=== PATIENT | female | born 1975 | race Caucasian/White ===

== ENCOUNTER 2017-08-02 10:15 | Emergency (ER) | payer OTHER ==
[~2017-08-02] VITALS: Ht 160 cm; Wt 57.0 kg
[2017-08-02 10:20] VITALS: TEMP 36.9; Ht 160 cm; Wt 57.0 kg
[2017-08-02] MEDS ORDERED: SODIUM CHLORIDE 0.9% 1000ML 1,000 ML IV STA (10:36)
[2017-08-02] MEDS ORDERED: MoRPHine SULFATE 4 MG/ML 1 ML CARP\\VIAL IV STA (10:36)
[2017-08-02] MEDS ORDERED: ACETAMINOPHEN 500 MG TAB PO STA (10:36)
[2017-08-02] MEDS ORDERED: IBUPROFEN 200 MG TAB PO STA (10:36)
[2017-08-02 11:14] LABS: BUN/CREATININE RATIO 11.4 (10-20); CALCIUM 8.6 mg/dl (8.5-10.1); CREATININE 0.82 mg/dl (0.60-1.20); POTASSIUM 3.6 mmol/L (3.5-5.1)
[2017-08-02 11:20] LABS: HEMATOCRIT 27.4 % (37-47); MEAN CELL VOLUME 72.5 fL (80-100); MEAN CORPUSCULAR HEMOGLOBIN 20.6 pg (25-34); MEAN CORPUSCULAR HGB CONC 28.5 g/dl (32-36); MEAN PLATELET VOLUME 8.8 fL (7.4-10.4); PLATELET COUNT 231 K/uL (130-400); RED BLOOD COUNT 3.78 M/uL (4.2-5.4); WHITE BLOOD COUNT 2.82 K/uL (4.8-10.8)
--- NOTE | 2017-08-02 11:28 | EMERGENCY ROOM VISIT NOTE ---
History Report prepared by Tamy: She Laird Under the Supervision of: Dr. Robby Rhodes M.D. First contact with patient: 10:23 Chief Complaint: SWELLING TO EXTREMITY Stated Complaint: SWELLING TO HANDS History of Present Illness The patient is a 42 year old female with a past history of C- section who presents to the ED with a cc of worsening swelling to extremities beginning a couple months ago. Positive: nausea, pain in extremities, swelling, and back pain. Negative: fever, chills, and cough. The pt denies ETOH, tobacco, and drug use. The pt's LNMP was July 30. Source of History: patient Onset: a couple months ago Quality: other (swelling) Timing: worsening Associated Symptoms: + nausea, + back pain, No fevers, No chills, No cough Note: Pt notes pain in extremities and swelling, Review of Systems See HPI for pertinent positives and negatives. A total of ten systems were reviewed and were otherwise negative. Past Medical & Surgical Surgical Problems: (1) Hx of section Family History No pertinent family history stated. Social History Smoking Status: Never Smoker Smokeless Tobacco Use: No Alcohol Use: none Drug Use: none Current/Historical Medications Scheduled Ferrous Sulfate (Kp Ferrous Sulfate), 1 TAB PO DAILY Scheduled PRN Docusate Sodium (Docusate Sodium), 1 CAP PO DAILY PRN for Constipation Senna (Senokot), 1 TAB PO QD PRN for Constipation Allergies Coded Allergies: No Known Allergies (Unverified , 08/02/17) Physical Exam Vital Signs Date Time Temp Pulse Resp B/P (MAP) Pulse Ox O2 Delivery O2 Flow Rate FiO2 08/02/17 13:14 82 15 105/64 100 08/02/17 11:49 88 15 116/76 100 Room Air 08/02/17 10:20 36.9 115 20 123/78 100 Room Air Physical Exam GENERAL: Awake, alert, well-appearing, NAD HENT: Normocephalic, atraumatic. EYES: Normal conjunctiva. Sclera non-icteric. NECK: Supple. No nuchal rigidity. FROM. RESPIRATORY: CTAB, no rhonchi, wheezing, crackles CARDIAC: RRR, no MRG ABDOMEN: Soft, NTND, BS+ MSK: No chest wall TTP, B/L mild tenderness to palpation to hands and wrist, no swelling present, mild pain to left ankle, no obvious fracture or deformity. Trace swelling present EXTREMITIES: NEURO: GCS 15, CN 2-12 intact, moves all 4s on command. MUR nerves intact to sensorimotor B/L UES. SP/DP/TIB nerves intact to sensorimotor B/L LORAINE. Hands and feet have no petechiae or purpura. SKIN: No rash or jaundice noted. Ink over ever DP of the hands and plantar surface of foot. No warmness or redness over any joint. Medical Decision & Procedures ER Provider Diagnostic Interpretation: Radiology results as stated below per my review and radiologist interpretation: CHEST ONE VIEW PORTABLE FINDINGS: Cardiac silhouette is upper limits of normal. No pneumothorax, pleural effusion or focal airspace consolidation. No overt pulmonary edema. Bones are grossly intact. IMPRESSION: No acute cardiopulmonary process. The above report was generated using voice recognition software. It may contain grammatical, syntax or spelling errors. Electronically signed by: Julio Esparza M.D. Laboratory Results 08/02/17 10:46 Red Blood Count 3.78, Mean Corpuscular Volume 72.5, Mean Corpuscular Hemoglobin 20.6, Mean Corpuscular Hemoglobin Concent 28.5, Mean Platelet Volume 8.8, Neutrophils (%) (Auto) 61.0, Lymphocytes (%) (Auto) 26.2, Monocytes (%) (Auto) 9.6, Eosinophils (%) (Auto) 2.8, Basophils (%) (Auto) 0.4, Neutrophils # (Auto) 1.72, Lymphocytes # (Auto) 0.74, Monocytes # (Auto) 0.27, Eosinophils # (Auto) 0.08, Basophils # (Auto) 0.01 08/02/17 10:46 Test 08/02/17 10:46 08/02/17 11:35 White Blood Count 2.82 K/uL (4.8-10.8) Red Blood Count 3.78 M/uL (4.2-5.4) Hemoglobin 7.8 g/dL (12.0-16.0) Hematocrit 27.4 % (37-47) Mean Corpuscular Volume 72.5 fL (80-100) Mean Corpuscular Hemoglobin 20.6 pg (25-34) Mean Corpuscular Hemoglobin Concent 28.5 g/dl (32-36) Platelet Count 231 K/uL (130-400) Mean Platelet Volume 8.8 fL (7.4-10.4) Neutrophils (%) (Auto) 61.0 % Lymphocytes (%) (Auto) 26.2 % Monocytes (%) (Auto) 9.6 % Eosinophils (%) (Auto) 2.8 % Basophils (%) (Auto) 0.4 % Neutrophils # (Auto) 1.72 K/uL (1.4-6.5) Lymphocytes # (Auto) 0.74 K/uL (1.2-3.4) Monocytes # (Auto) 0.27 K/uL (0.11-0.59) Eosinophils # (Auto) 0.08 K/uL (0-0.5) Basophils # (Auto) 0.01 K/uL (0-0.2) RDW Standard Deviation 48.2 fL (36.4-46.3) RDW Coefficient of Variation 18.2 % (11.5-14.5) Immature Granulocyte % (Auto) 0.0 % Immature Granulocyte # (Auto) 0.00 K/uL (0.00-0.02) Hypochromasia PRESENT Spherocytes 1+ Tear Drop Cells 1+ Ovalocytes 1+ Anion Gap 4.0 mmol/L (3-11) Est Creatinine Clear Calc Drug Dose 73.9 ml/min Estimated GFR () 102.3 Estimated GFR (Non- 88.3 BUN/Creatinine Ratio 11.4 (10-20) Calcium Level 8.6 mg/dl (8.5-10.1) Magnesium Level 2.0 mg/dl (1.8-2.4) Total Bilirubin 0.8 mg/dl (0.2-1) Direct Bilirubin 0.2 mg/dl (0-0.2) Aspartate Amino Transf (AST/SGOT) 20 U/L (15-37) Alanine Aminotransferase (ALT/SGPT) 17 U/L (12-78) Alkaline Phosphatase 88 U/L (45-117) Total Protein 8.6 gm/dl (6.4-8.2) Albumin 3.7 gm/dl (3.4-5.0) Urine Color YELLOW Urine Appearance CLEAR (CLEAR) Urine pH 5.5 (4.5-7.5) Urine Specific [place] 1.010 (1.000-1.030) Urine Protein NEG (NEG) Urine Glucose (UA) NEG (NEG) Urine Ketones TRACE (NEG) Urine Occult Blood NEG (NEG) Urine Nitrite NEG (NEG) Urine Bilirubin NEG (NEG) Urine Urobilinogen NEG (NEG) Urine Leukocyte Esterase NEG (NEG) Urine WBC (Auto) 1-5 /hpf (0-5) Urine RBC (Auto) 0-4 /hpf (0-4) Urine Hyaline Casts (Auto) 1-5 /lpf (0-5) Urine Epithelial Cells (Auto) >30 /lpf (0-5) Urine Bacteria (Auto) NEG (NEG) Urine Test NEG (NEG) Laboratory results reviewed by me Medications Administered Medications (Trade) Dose Ordered Sig/Joby Route Start Time Stop Time Status Last Admin Dose Admin Sodium Chloride 1,000 ml @ 999 mls/hr Q1H1M STAT IV 08/02/17 10:36 08/02/17 11:36 DC 08/02/17 11:15 999 MLS/HR Morphine Sulfate (MoRPHine SULFATE INJ) 4 mg NOW STAT IV 08/02/17 10:36 08/02/17 10:38 DC 08/02/17 11:12 4 MG Ibuprofen (Advil Tab) 400 mg NOW STAT PO 08/02/17 10:36 08/02/17 10:38 DC 08/02/17 11:12 400 MG Acetaminophen (Tylenol Tab) 1,000 mg NOW STAT PO 08/02/17 10:36 08/02/17 10:38 DC 08/02/17 11:12 1,000 MG ECG Indication: other (swelling to extremities) Rate (beats per minute): 103 Rhythm: sinus tachycardia Findings: other (normal interval, normal axis, no STS changes or T-wave inversion) ED Course 1026: The patient was evaluated in room C10. A complete history and physical exam was performed. 1210: I rechecked on the pt, she is resting comfortably. The pt has no vaginal or rectal bleeding. She also has a hx of anemia and low blood count and has had iron transfusions. 1252: I reevaluated the patient. Discussed results and discharge instructions: She verbalized understanding and agreement. The patient is ready for discharge. Medical Decision The patient is a 42 year old female with a past history of C- section who presents to the ED with a cc of worsening swelling to extremities beginning a couple months ago. Positive: nausea, pain in extremities, swelling, and back pain. Negative: fever, chills, and cough. Differential diagnosis includes but is not limited to: DJD, rheumatoid arthritis, gout, proteinuria, nephrotic syndrome, gynecol infection. Patient was seen and evaluated at the bedside. Patient swelling present was trace heme unremarkable. Patient had no warmth or erythema to any of the joints. Patient did have blood work COMPLETED and patient was noted to have mild leukopenia as well as microcytic anemia. I spoke with the patient and family denied any vaginal or rectal bleeding. Upon further questioning patient has had a chronic history of what sounds like iron deficiency anemia as she is taking oral iron supplements in addition to having iron IV infusions in the past when they previously lived in [place]. Patient's pain and tachycardia resolved with fluids and pain control. I told the patient that they can continue symptomatic control for the time being and if anything worsens they can return. 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 Patient's tachycardia did resolve and patient does not complain of any shortness of breath or chest pain. Patient was afebrile had no other concerning signs or symptoms concerning for an infectious etiology although she may have symptoms of viral illness. We'll not treat with antibiotics at this time given afebrile and no obvious source of infection. U urinalysis was negative. No protein in the urine. Patient feeling much improved patient was given RICE instructions as well as strict follow-up, discharge, and return precautions. Patient and family agreed with plan of care and patient was safely discharged home. Medication Reconcilliation Current Medication List: was personally reviewed by me Blood Pressure Screening Patient's blood pressure: Normal blood pressure Impression Primary Impression: Microcytic anemia Additional Impression: Leukopenia Scribe Attestation The scribe's documentation has been prepared under my direction and personally reviewed by me in its entirety. I confirm that the note above accurately reflects all work, treatment, procedures, and medical decision making performed by me. Departure Information Dispostion Home / Self-Care Prescriptions Senna (Senokot) 8.6 Mg Tab 1 TAB PO QD Y for Constipation, #30 TAB Prov: Robby Rhodes M.D. 08/02/17 Docusate Sodium (DOCUSATE SODIUM) 100 Mg Cap 1 CAP PO DAILY Y for Constipation for 30 Days, #30 CAP Prov: Robby Rhodes M.D. 08/02/17 Ferrous Sulfate (KP FERROUS SULFATE) 325 Mg Tab 1 TAB PO DAILY for 30 Days, #30 TAB 3 Refills Prov: Robby Rhodes M.D. 08/02/17 Referrals No Doctor, Assigned (PCP) Forms HOME CARE DOCUMENTATION FORM, IMPORTANT VISIT INFORMATION, WORK / SCHOOL INSTRUCTIONS Patient Instructions Anemia, ED Anemia Iron Deficiency, Iron Blood, [facility] Additional Instructions Please return to the emergency department if you have worsening or recurrent symptoms not amenable to at-home treatment. Please call for a follow-up appointment with her primary care physician. Please take your medications as prescribed. If you have other concerns and/or complaints please feel free to also call your primary care physician's office or return the ED for further evaluation, management, and treatment. [address] sa[address] salcido altaeam lil'alam yrja 'akhadh mukamilat alhadid alpesh hu muhadidun. yrja aitikhadh almurtabat albiraz walhadid ymkn 'an yusabib al'iimsak. [place] ziadat alhadid alyawmii alex rene aistihlak allihum alhamra' walkhudr alwarqiat. kunt qad roberts fahsuha wamuealajatuha alyawm ealaa 'asas krystle faqta. wahadha lays badilapatrice alex tawfir alrieayat altibiyat alshaamilat, 'aw badhl juhd litawfiriha. min almustahil altaearuf ealaa jmye al'iisabat 'aw al'amrad wamuealajatiha fi ziarat qism altawari. walidhalik faman almuhimi 'an tutabie alex kathab salcido alkhadamat alsihiyat aljamieiati. 'atasil fi 'aqrab waqt mumkin lilhusul ealaa maweid. Work Instructions Return To Work: 1 day Problem Qualifiers Additional Impression: Leukopenia Leukopenia type: unspecified Qualified Codes: D72.819 - Decreased white blood cell count, unspecified
[2017-08-02 11:33] LABS: BASO % 0.4 %; BASO ABS # 0.01 K/uL (0-0.2); COMPLETE YES; EOS % 2.8 %; HYPOCHROMIA PRESENT; LYMPH % 26.2 %; LYMPH ABS # 0.74 K/uL (1.2-3.4); MONO % 9.6 %; OVALOCYTES 1+; SPHEROCYTE 1+; TEAR DROP CELLS 1+
[2017-08-02 12:00] LABS: URINE APPEARANCE CLEAR (CLEAR); URINE BILIRUBIN NEG (NEG); URINE COLOR YELLOW; URINE EPITHELIAL CELL AUTO >30 /lpf (0-5); URINE NITRITE NEG (NEG); URINE PH 5.5 (4.5-7.5); UROBILINOGEN NEG (NEG); ZZUR CULT IF INDIC CLEAN CATCH NO
[2017-08-02 12:01] LABS: MANUAL MICROSCOPIC REQUIRED? NO; REVIEW REQ? NO
--- NOTE | 2017-08-02 12:23 | DIAGNOSTIC IMAGING REPORT ---
CHEST ONE VIEW PORTABLE HISTORY: 42 years-old Female tachy acute tachycardia. Initial exam. COMPARISON: None available TECHNIQUE: Portable upright AP view of the chest FINDINGS: Cardiac silhouette is upper limits of normal. No pneumothorax, pleural effusion or focal airspace consolidation. No overt pulmonary edema. Bones are grossly intact. IMPRESSION: No acute cardiopulmonary process. The above report was generated using voice recognition software. It may contain grammatical, syntax or spelling errors. Electronically signed by: Julio Esparza M.D. 08/02/2017 12:22 PM Dictated Date/Time: 08/02/2017 12:21 PM
[2017-08-02] MEDS ORDERED: SENN-61 PO (12:49)
[2017-08-02] MEDS ORDERED: FERR1TAB13 PO (12:49)
[2017-08-02] MEDS ORDERED: DOCU100C31 PO (12:49)
[2017-08-02 13:14] VITALS: BP 105/64; PULSE 82; O2SAT 100
== END 2017-08-02 13:13 | disposition home or self-care (01) ==
LOC: C.EDB 10:16 → C.EDC 13:13
DX: D50.9 Iron deficiency anemia, unspecified (principal); D72.819 Decreased white blood cell count, unspecified

== ENCOUNTER 2017-09-07 20:51 | Emergency (ER) | payer SELFPAY ==
[~2017-09-07] VITALS: Ht 157.5 cm; Wt 55.1 kg
[~2017-09-07 20:51] MED LIST: FERR1TAB13 PO; SENN-61 PO
[2017-09-07 21:02] VITALS: Ht 157.5 cm; Wt 55.1 kg
[2017-09-07] MEDS ORDERED: DiphenhydrAMINE HCL 50 MG/ML VIAL IV STA (21:59)
[2017-09-07] MEDS ORDERED: METHYLPREDNISOLONE 125 MG VIAL IV STA (21:59)
[2017-09-07] MEDS ORDERED: KETOROLAC TROMETHAMINE 30 MG/ML VIAL IV STA (21:59)
[2017-09-07] MEDS ORDERED: SODIUM CHLORIDE 0.9% 1000ML 1,000 ML IV ONE (22:00)
[2017-09-07 22:52] LABS: URINE APPEARANCE CLOUDY (CLEAR); URINE BILIRUBIN NEG (NEG); URINE COLOR YELLOW; URINE EPITHELIAL CELL AUTO >30 /lpf (0-5); URINE NITRITE NEG (NEG); URINE PH 8.5 (4.5-7.5); URINE SPECIFIC GRAVITY 1.018 (1.000-1.030); UROBILINOGEN NEG (NEG); ZZUR CULT IF INDIC CLEAN CATCH YES
[2017-09-07 22:55] LABS: MANUAL MICROSCOPIC REQUIRED? NO; REVIEW REQ? NO
[2017-09-07 22:56] LABS: SULFASALICYLIC ACID POS (NEG)
[2017-09-07 23:23] LABS: HEMATOCRIT 26.5 % (37-47); MEAN CELL VOLUME 73.2 fL (80-100); MEAN CORPUSCULAR HGB CONC 28.7 g/dl (32-36); MEAN PLATELET VOLUME 8.9 fL (7.4-10.4); PLATELET COUNT 209 K/uL (130-400); RED BLOOD COUNT 3.62 M/uL (4.2-5.4); WHITE BLOOD COUNT 2.43 K/uL (4.8-10.8)
[2017-09-07 23:25] VITALS: TEMP 37
[2017-09-07] MEDS ORDERED: FERR1TAB13 PO (23:27)
[2017-09-07] MEDS ORDERED: SENN-61 PO (23:27)
[2017-09-07 23:28] LABS: ALB/GLOB RATIO 0.8 (0.9-2); BUN/CREATININE RATIO 10.5 (10-20); CALCIUM 8.3 mg/dl (8.5-10.1); CREATININE 0.73 mg/dl (0.60-1.20); POTASSIUM 4.2 mmol/L (3.5-5.1)
[2017-09-07] MEDS ORDERED: CEFTRIAXONE SOD INJ 1 GM ADDVIAL IV STA (23:34)
[2017-09-07 23:49] VITALS: BP 103/66; PULSE 103; O2SAT 95
[2017-09-07 23:53] LABS: BASO % 0.8 %; BASO ABS # 0.02 K/uL (0-0.2); COMPLETE YES; EOS % 3.7 %; HYPOCHROMIA PRESENT; LARGE PLATELETS 1+; LYMPH % 19.3 %; LYMPH ABS # 0.47 K/uL (1.2-3.4); MONO % 5.8 %; NEUT % 70.4 %; OVALOCYTES 1+; SCHISTOCYTES OCCASIONAL; TEAR DROP CELLS 1+
[2017-09-07] MEDS ORDERED: CEFD300C2 PO (23:53)
--- NOTE | 2017-09-08 04:30 | EMERGENCY ROOM VISIT NOTE ---
History First contact with patient: 21:53 Chief Complaint: FEVER Stated Complaint: FEVER History of Present Illness The patient is a 42 year old female who presents to the Emergency Room with complaints of fever and chills over the past one day. The patient has not had obvious flulike symptoms. No chest pain, chest tightness, or shortness of breath. She has had some burning with urination but no significant abdominal pain or back pain. The patient has a history of chronic anemia. She has not been taking anything [id number] for her symptoms. She rates her discomfort a 5/10. Review of Systems More than 10 systems were reviewed and otherwise negative with the exception of history of present illness. Past Medical/Surgical History Surgical Problems: (1) Hx of section Family History No pertinent family history Social History Smoking Status: Never Smoker Alcohol Use: none Drug Use: none Current/Historical Medications Scheduled Cefdinir (Omnicef), 300 MG PO Q12H Ferrous Sulfate (Kp Ferrous Sulfate), 1 TAB PO DAILY Scheduled PRN Senna (Senokot), 1 TAB PO DAILY PRN for Constipation Physical Exam Vital Signs Date Time Temp Pulse Resp B/P (MAP) Pulse Ox O2 Delivery O2 Flow Rate FiO2 09/07/17 23:49 103 18 103/66 95 Room Air 09/07/17 23:25 37.0 09/07/17 22:29 101 18 118/79 95 Room Air 09/07/17 21:02 37.7 131 20 116/65 98 Room Air Physical Exam VITALS: Vitals are noted on the nurse's note and reviewed by myself. Vital signs stable. GENERAL: Well-developed, well-nourished, female, who is in no acute distress and resting comfortably. Patient is cooperative with the examination. HEAD: Normocephalic atraumatic. EARS: External ear normal. External auditory canals clear, tympanic membranes pearly lester without erythema or effusion bilaterally. EYES: Pupils equal round and reactive to light and accommodation. Conjunctivae without injection, sclerae without icterus. Extraocular movements intact. NOSE: Patent, turbinates without inflammation or discharge. MOUTH: Mucous membranes moist. Tonsils are not enlarged. Pharynx without erythema, blood, or exudate. Uvula midline. Airway patent. NECK: Supple without nuchal rigidity. No lymphadenopathy. No thyromegaly. Cervical spine is nontender. HEART: Regular rate and rhythm without murmurs gallops or rubs. LUNGS: Clear to auscultation bilaterally without wheezes, rales or rhonchi. No retractions or accessory muscle use. ABDOMEN: Positive normal bowel sounds x 4. Soft, nontender, without masses or organomegaly. No guarding or rebound tenderness. No CVA tenderness. MUSCULOSKELETAL: No muscle atrophy, erythema, or edema noted. Full range of motion without joint tenderness in all extremities. There are several areas of excoriation on the bilateral dorsum of the hands and feet. There is a small rash, possibly of viral etiology, without obvious abscess appreciated. Medical Decision & Procedures Laboratory Results 09/07/17 22:10 Red Blood Count 3.62, Mean Corpuscular Volume 73.2, Mean Corpuscular Hemoglobin 21.0, Mean Corpuscular Hemoglobin Concent 28.7, Mean Platelet Volume 8.9, Neutrophils (%) (Auto) 70.4, Lymphocytes (%) (Auto) 19.3, Monocytes (%) (Auto) 5.8, Eosinophils (%) (Auto) 3.7, Basophils (%) (Auto) 0.8, Neutrophils # (Auto) 1.71, Lymphocytes # (Auto) 0.47, Monocytes # (Auto) 0.14, Eosinophils # (Auto) 0.09, Basophils # (Auto) 0.02 09/07/17 22:10 Test 09/07/17 21:50 09/07/17 22:10 09/07/17 22:20 09/07/17 22:30 Urine Color YELLOW Urine Appearance CLOUDY (CLEAR) Urine pH 8.5 (4.5-7.5) Urine Specific [place] 1.018 (1.000-1.030) Urine Protein TRACE (NEG) Urine Glucose (UA) NEG (NEG) Urine Ketones NEG (NEG) Urine Occult Blood TRACE (NEG) Urine Nitrite NEG (NEG) Urine Bilirubin NEG (NEG) Urine Urobilinogen NEG (NEG) Urine Leukocyte Esterase MODERATE (NEG) Urine WBC (Auto) 10-30 /hpf (0-5) Urine RBC (Auto) 5-10 /hpf (0-4) Urine Hyaline Casts (Auto) 1-5 /lpf (0-5) Urine Epithelial Cells (Auto) >30 /lpf (0-5) Urine Bacteria (Auto) 1+ (NEG) Urine Test NEG (NEG) White Blood Count 2.43 K/uL (4.8-10.8) Red Blood Count 3.62 M/uL (4.2-5.4) Hemoglobin 7.6 g/dL (12.0-16.0) Hematocrit 26.5 % (37-47) Mean Corpuscular Volume 73.2 fL (80-100) Mean Corpuscular Hemoglobin 21.0 pg (25-34) Mean Corpuscular Hemoglobin Concent 28.7 g/dl (32-36) Platelet Count 209 K/uL (130-400) Mean Platelet Volume 8.9 fL (7.4-10.4) Neutrophils (%) (Auto) 70.4 % Lymphocytes (%) (Auto) 19.3 % Monocytes (%) (Auto) 5.8 % Eosinophils (%) (Auto) 3.7 % Basophils (%) (Auto) 0.8 % Neutrophils # (Auto) 1.71 K/uL (1.4-6.5) Lymphocytes # (Auto) 0.47 K/uL (1.2-3.4) Monocytes # (Auto) 0.14 K/uL (0.11-0.59) Eosinophils # (Auto) 0.09 K/uL (0-0.5) Basophils # (Auto) 0.02 K/uL (0-0.2) RDW Standard Deviation 50.5 fL (36.4-46.3) RDW Coefficient of Variation 18.9 % (11.5-14.5) Immature Granulocyte % (Auto) 0.0 % Immature Granulocyte # (Auto) 0.00 K/uL (0.00-0.02) Large Platelets 1+ Hypochromasia PRESENT Tear Drop Cells 1+ Ovalocytes 1+ Schistocytes OCCASIONAL Anion Gap 6.0 mmol/L (3-11) Est Creatinine Clear Calc Drug Dose 79.4 ml/min Estimated GFR () 117.7 Estimated GFR (Non- 101.6 BUN/Creatinine Ratio 10.5 (10-20) Calcium Level 8.3 mg/dl (8.5-10.1) Total Bilirubin 0.6 mg/dl (0.2-1) Aspartate Amino Transf (AST/SGOT) 44 U/L (15-37) Alanine Aminotransferase (ALT/SGPT) 25 U/L (12-78) Alkaline Phosphatase 86 U/L (45-117) Total Protein 8.5 gm/dl (6.4-8.2) Albumin 3.8 gm/dl (3.4-5.0) Globulin 4.7 gm/dl (2.5-4.0) Albumin/Globulin Ratio 0.8 (0.9-2) Bedside Lactic Acid Venous 1.19 mmol/L (0.90-1.70) Influenza Type A Antigen Neg for Influ A (NEG) Influenza Type B Antigen Neg for Influ B (NEG) Medications Administered Medications (Trade) Dose Ordered Sig/Joby Route Start Time Stop Time Status Last Admin Dose Admin Sodium Chloride 1,000 ml @ 999 mls/hr Q1H1M ONCE IV 09/07/17 22:00 09/07/17 23:00 DC 09/07/17 22:23 999 MLS/HR Ketorolac Tromethamine (Toradol Inj) 30 mg NOW STAT IV 09/07/17 21:59 09/07/17 22:01 DC 09/07/17 22:24 30 MG Methylprednisolone Sodium Succinate (Solu-Medrol IV) 125 mg NOW STAT IV 09/07/17 21:59 09/07/17 22:01 DC 09/07/17 22:24 125 MG Diphenhydramine HCl (Benadryl Inj) 25 mg NOW STAT IV 09/07/17 21:59 09/07/17 22:01 DC 09/07/17 22:24 25 MG Ceftriaxone Sodium (Rocephin Inj) 1 gm NOW STAT IV 09/07/17 23:34 09/07/17 23:35 DC 09/07/17 23:46 1 GM ED Course Physical exam and history were performed. Nursing notes, EMR, and Medication List were personally reviewed. Patient appears to have vague fever symptoms for the past one day. She does not appear toxic on examination. IV access was established and labs were obtained. Urine was collected chest x-ray was performed. The patient was hydrated with normal saline. She was medicated as above for fever and her rash. The patient's blood work is as above was reviewed. She does not have a significantly elevated white blood cell count or bandemia. The patient does have a noted anemia, however this appears chronic to blood work that was drawn about 6 weeks ago here at this facility. The patient's urine is highly concerning for infection. Chest x-ray is without obvious findings. She was medicated with Rocephin IV in the department. Overall the patient appears well for discharge home. I suspect that her rash may be viral in nature. She will be given a continuation course of Omnicef as her states she recently completed a dose of an unknown penicillin. The patient is to follow with her primary care physician not only for this but also the chronic anemia. The family was pleased with this and voiced understanding. She rated her discomfort a 0/10 at this time departure. The chart was completed utilizing [employer] Speech Voice Recognition Software. Grammatical errors, random word insertions, pronoun errors, and incomplete sentences are an occasional consequence of this system due to software limitations, ambient noise, and hardware issues. Any formal questions or concerns about the content, text, or information contained within the body of this dictation should be directly addressed to the provider for clarification. . Medical Decision Differential diagnosis: Etiologies such as viral syndrome, otitis, pharyngitis, pneumonia, influenza, meningitis, urinary tract infection, sepsis, bacteremia, as well as others were entertained. Impression Primary Impression: Urinary tract infection Additional Impression: Chronic anemia Departure Information Dispostion Home / Self-Care Condition GOOD Prescriptions Cefdinir (OMNICEF) 300 Mg Cap 300 MG PO Q12H for 10 Days, #20 CAP Prov: Deni Tirado PA-C 09/07/17 Forms HOME CARE DOCUMENTATION FORM, IMPORTANT VISIT INFORMATION Patient Instructions My [facility] Additional Instructions You were seen and evaluated today on an emergency basis only. This is not a substitute for, or an effort to provide, complete comprehensive medical care. It is not possible to recognize and treat all injuries or illnesses in a single emergency department visit. For this reason it is recommended that you followup with your primary care physician this week for ongoing care and evaluation. Take Omnicef 300 mg twice daily for the next 10 days. You are welcome to return to the emergency department anytime with new, worsening, or concerning symptoms. Problem Qualifiers
--- NOTE | 2017-09-08 07:04 | DIAGNOSTIC IMAGING REPORT ---
CHEST 2 VIEWS ROUTINE CLINICAL HISTORY: Fever, flulike symptoms. COMPARISON STUDY: August 02, 2017 FINDINGS: The heart is mildly enlarged. There is slight tracheal deviation to the right at the thoracic inlet. A thoracic inlet mass such as a thyroid goiter cannot be excluded. There is no lobar consolidation. There are diffusely increased interstitial markings. This could be secondary to technical factors, or could represent interstitial inflammatory process. There is slight blunting of the left lateral costophrenic angle.[ IMPRESSION: 1. Diffusely increased interstitial markings. It is unclear whether this is secondary to technical factors, or a bilateral interstitial inflammatory process. If symptoms persist, follow-up radiography is recommended. Electronically signed by: Claude Arias M.D. 09/08/2017 7:03 AM Dictated Date/Time: 09/08/2017 7:01 AM
== END 2017-09-08 00:16 | disposition home or self-care (01) ==
LOC: C.EDB 20:53
DX: N39.0 Urinary tract infection, site not specified (principal); D64.9 Anemia, unspecified; R21 Rash and other nonspecific skin eruption; Z79.899 Other long term (current) drug therapy

== ENCOUNTER 2017-10-11 18:52 | Emergency (ER) | payer OTHER ==
[~2017-10-11] VITALS: Ht 160 cm; Wt 52.6 kg
[2017-10-11 18:56] VITALS: TEMP 37.3; Ht 160 cm; Wt 52.6 kg
[2017-10-11] MEDS ORDERED: ONDANSETRON 4MG OD TAB PO ONE (19:15)
--- NOTE | 2017-10-11 19:16 | EMERGENCY ROOM VISIT NOTE ---
History Report prepared by Tamy: Harvinder Johnson Under the Supervision of: Dr. Mark Lemus M.D. First contact with patient: 19:02 Chief Complaint: VOMITING Stated Complaint: VOMITING,FEVER History of Present Illness The patient is a 42 year old female who presents to the Emergency Room with complaints of intermittent vomiting that started a week ago. She rates her discomfort as an 8/10 in severity. The patient reports that she has been experiencing an intermittent fever and nausea. She states that she has also been experiencing a rash on her fingers, face, and feet, which is the third time she has been experiencing this. The patient states that the rashes are painful, which makes it difficult to walk. She also reports that the rash on her fingers intermittently bleed. Her states that the patient has come to the ED twice for her rash, but admits that the rash goes away on its own and randomly comes back. She reports that she has also been experiencing irregular and frequent menses. The patient states that she took a test, which she reports was negative. The patient admits to a history of anemia and tubal ligation. She reports that she is from [place] and her last visit was 2 years ago. The patient denies diarrhea, constipation, abdominal pain, and urinary symptoms. Source of History: patient, spouse/significant other Onset: a week ago Position: other (global) Symptom Intensity: 8/10 Quality: other (global) Timing: intermittent Associated Symptoms: + fevers, + nausea, + rash, No abdominal pain, No diarrhea, No urinary symptoms Review of Systems All systems have been listed, reviewed, and are negative other than those previously mentioned. Please see Additional Medical History Sheet. Past Medical & Surgical Surgical Problems: (1) Hx of section Family History Patient reports no known family medical history. Social History Smoking Status: Never Smoker Alcohol Use: none Drug Use: none Marital Status: Housing Status: lives with significant other Current/Historical Medications Scheduled Ferrous Sulfate (Kp Ferrous Sulfate), 1 TAB PO DAILY Nitrofurantoin Monohyd Macro (Macrobid), 100 MG PO BID Ondasetron Odt (Zofran Odt), 4 MG SL Q4 Scheduled PRN Senna (Senokot), 1 TAB PO DAILY PRN for Constipation Allergies Coded Allergies: No Known Allergies (Unverified , 09/07/17) Physical Exam Vital Signs Date Time Temp Pulse Resp B/P (MAP) Pulse Ox O2 Delivery O2 Flow Rate FiO2 10/11/17 22:21 98 20 119/78 97 10/11/17 21:05 99 16 116/77 98 Room Air 10/11/17 18:56 37.3 121 20 135/82 96 Room Air Physical Exam GENERAL: Patient awake, alert, oriented x 3. Patient follows commands. Patient does not appear toxic. Patient is adequately hydrated and well- nourished. SKIN: Red, dry, nonraised erythematous lesion over nose, on tips of fingers and toes. HEENT: Normal head, pupils equal, reactive to light and accommodation. Ears normal. Oral cavity and posterior pharynx appear normal. Neck: Without adenopathy, no neck vein distention. LUNGS: Clear to auscultation. No wheezes, no rales, no rhonchi. HEART: No murmurs. No gallops. No rubs ABDOMEN: No masses, no rebound, no hepatomegaly or splenomegaly. EXTREMITIES: No signs of trauma. No pedal or pretibial edema. No calf or thigh tenderness. Red, dry, nonraised erythematous lesion on tips of fingers and toes. NEUROLOGIC: Cranial nerves II-XII within normal limits. No gross motor sensory function deficits. Medical Decision & Procedures Laboratory Results 10/11/17 19:29 Red Blood Count 3.50, Mean Corpuscular Volume 78.0, Mean Corpuscular Hemoglobin 23.1, Mean Corpuscular Hemoglobin Concent 29.7, Mean Platelet Volume 9.3, Neutrophils (%) (Auto) 65.6, Lymphocytes (%) (Auto) 22.7, Monocytes (%) (Auto) 10.5, Eosinophils (%) (Auto) 0.6, Basophils (%) (Auto) 0.6, Neutrophils # (Auto ) 2.05, Lymphocytes # (Auto) 0.71, Monocytes # (Auto) 0.33, Eosinophils # (Auto ) 0.02, Basophils # (Auto) 0.02 10/11/17 19:29 Test 10/11/17 19:28 10/11/17 19:29 Urine Color DK YELLOW Urine Appearance TURBID (CLEAR) Urine pH 5.0 (4.5-7.5) Urine Specific [place] 1.026 (1.000-1.030) Urine Protein 2+ (NEG) Urine Glucose (UA) NEG (NEG) Urine Ketones 1+ (NEG) Urine Occult Blood 3+ (NEG) Urine Nitrite NEG (NEG) Urine Bilirubin NEG (NEG) Urine Urobilinogen NEG (NEG) Urine Leukocyte Esterase SMALL (NEG) Urine WBC (Auto) 10-30 /hpf (0-5) Urine RBC (Auto) >30 /hpf (0-4) Urine Hyaline Casts (Auto) 0 /lpf (0-5) Urine Epithelial Cells (Auto) >30 /lpf (0-5) Urine Bacteria (Auto) 2+ (NEG) Urine Crystals AMORPHOUS SEDIMENT (NONE Urine Pathogenic Casts /lpf (0) Urine Mucus PRESENT (NONE PRSENT) Urine Test NEG (NEG) White Blood Count 3.13 K/uL (4.8-10.8) Red Blood Count 3.50 M/uL (4.2-5.4) Hemoglobin 8.1 g/dL (12.0-16.0) Hematocrit 27.3 % (37-47) Mean Corpuscular Volume 78.0 fL (80-100) Mean Corpuscular Hemoglobin 23.1 pg (25-34) Mean Corpuscular Hemoglobin Concent 29.7 g/dl (32-36) Platelet Count 160 K/uL (130-400) Mean Platelet Volume 9.3 fL (7.4-10.4) Neutrophils (%) (Auto) 65.6 % Lymphocytes (%) (Auto) 22.7 % Monocytes (%) (Auto) 10.5 % Eosinophils (%) (Auto) 0.6 % Basophils (%) (Auto) 0.6 % Neutrophils # (Auto) 2.05 K/uL (1.4-6.5) Lymphocytes # (Auto) 0.71 K/uL (1.2-3.4) Monocytes # (Auto) 0.33 K/uL (0.11-0.59) Eosinophils # (Auto) 0.02 K/uL (0-0.5) Basophils # (Auto) 0.02 K/uL (0-0.2) RDW Standard Deviation 58.8 fL (36.4-46.3) RDW Coefficient of Variation 20.7 % (11.5-14.5) Immature Granulocyte % (Auto) 0.0 % Immature Granulocyte # (Auto) 0.00 K/uL (0.00-0.02) Platelet Estimate NORMAL Anisocytosis PRESENT Ovalocytes 1+ Erythrocyte Sedimentation Rate 61 mm/hr (0-21) Anion Gap 7.0 mmol/L (3-11) Est Creatinine Clear Calc Drug Dose 73.0 ml/min Estimated GFR () 100.8 Estimated GFR (Non- 87.0 BUN/Creatinine Ratio 13.0 (10-20) Calcium Level 8.6 mg/dl (8.5-10.1) Total Bilirubin 0.7 mg/dl (0.2-1) Aspartate Amino Transf (AST/SGOT) 24 U/L (15-37) Alanine Aminotransferase (ALT/SGPT) 13 U/L (12-78) Alkaline Phosphatase 65 U/L (45-117) Total Protein 9.1 gm/dl (6.4-8.2) Albumin 3.7 gm/dl (3.4-5.0) Globulin 5.4 gm/dl (2.5-4.0) Albumin/Globulin Ratio 0.7 (0.9-2) Laboratory results as stated above per my review. Medications Administered Medications (Trade) Dose Ordered Sig/Joby Route Start Time Stop Time Status Last Admin Dose Admin Ondansetron HCl (Zofran Odt) 4 mg ONE ONCE PO 10/11/17 19:15 10/11/17 19:16 DC 10/11/17 19:27 4 MG Nitrofurantoin Macrocrystals (Macrobid Cap) 100 mg ONE ONCE PO 10/11/17 21:45 10/11/17 21:46 DC 10/11/17 22:02 100 MG Ondansetron HCl (ZOFRAN ODT 4MG Home Pack) 1 homepack UD ONCE PO 10/11/17 21:45 10/11/17 21:46 DC 10/11/17 22:02 1 HOMEPACK ED Course 1902: Past medical records reviewed. The patient was evaluated in room B02. A complete history and physical examination was performed. 1914: Ordered Ondansetron HCl 4 mg PO. 2055: I reevaluated the patient and she is resting comfortably. I am going to start her on antibiotics and get her to drink fluids. 2144: Ordered Ondansetron HCl 1 homepack PO, Macrobid Cap 100 mg PO. 2209: Upon reevaluation, the patient appeared to have improvement of his symptoms. I discussed today's findings with the patient. He verbalized agreement of the treatment plan. The patient was discharged home. Medical Decision Nurses notes reviewed. Medical history sheet reviewed. Differential diagnosis includes but is not limited to: Urinary tract infection, Gastroenteritis, metabolic disorder, dehydration, and dermatitis. The patient has been seen twice in the past couple of months for similar problems. Those cases were reviewed. Multiple labs and urinalysis were performed. The patient is chronically anemic but not more so than in the recent past. Indices are microcytic hypochromic. Her sedimentation rate is elevated. Urinalysis reveals significant white cells and bacteria but this may be a contaminated specimen. The patient was given Zofran which helped with the nausea. She is also started on Macrobid. The patient will need close follow-up by family practitioner or marketing segment manager. I do not know the cause of her rash. I contacted case management to arrange follow- up. Medication Reconcilliation Current Medication List: was personally reviewed by me Blood Pressure Screening Patient's blood pressure: Normal blood pressure Impression Primary Impression: Urinary tract infection Additional Impressions: Nausea & vomiting Chronic anemia Scribe Attestation The scribe's documentation has been prepared under my direction and personally reviewed by me in its entirety. I confirm that the note above accurately reflects all work, treatment, procedures, and medical decision making performed by me. Departure Information Dispostion Home / Self-Care Prescriptions Nitrofurantoin Monohyd Macro (MACROBID) 100 Mg Cap 100 MG PO BID, #20 CAP Prov: Mark Lemus M.D. 10/11/17 Ondasetron Odt (ZOFRAN ODT) 4 Mg Tab 4 MG SL Q4 for Nausea, #20 TABS Prov: Mark Lemus M.D. 10/11/17 Referrals No Doctor, Assigned (PCP) Forms HOME CARE DOCUMENTATION FORM, IMPORTANT VISIT INFORMATION Patient Instructions [facility] Additional Instructions 1 Zofran every 4 hours as needed for nausea or vomiting. 1 Macrobid twice a day until prescription has been completed. Drink at least 2-3 quarts of liquid per day. Follow-up with family medicine as soon as possible. Problem Qualifiers
[2017-10-11 19:39] LABS: MEAN CORPUSCULAR HGB CONC 29.7 g/dl (32-36)
[2017-10-11 19:48] LABS: URINE APPEARANCE TURBID (CLEAR); URINE COLOR DK YELLOW; URINE EPITHELIAL CELL AUTO >30 /lpf (0-5); URINE NITRITE NEG (NEG); URINE SPECIFIC GRAVITY 1.026 (1.000-1.030); UROBILINOGEN NEG (NEG); ZZUR CULT IF INDIC CLEAN CATCH YES
[2017-10-11 19:48] LABS: HEMATOCRIT 27.3 % (37-47); MEAN CORPUSCULAR HEMOGLOBIN 23.1 pg (25-34); WHITE BLOOD COUNT 3.13 K/uL (4.8-10.8)
[2017-10-11 19:55] LABS: CALCIUM 8.6 mg/dl (8.5-10.1); CREATININE 0.83 mg/dl (0.60-1.20); POTASSIUM 3.8 mmol/L (3.5-5.1)
[2017-10-11 19:58] LABS: ALB/GLOB RATIO 0.7 (0.9-2)
[2017-10-11 20:05] LABS: MANUAL MICROSCOPIC REQUIRED? NO; REVIEW REQ? YES; URINE BILIRUBIN NEG (NEG)
[2017-10-11 20:08] LABS: URINE MUCUS PRESENT (NONE PRSENT)
[2017-10-11 20:09] LABS: ANISOCYTOSIS PRESENT; BASO % 0.6 %; BASO ABS # 0.02 K/uL (0-0.2); COMPLETE YES; EOS % 0.6 %; LYMPH % 22.7 %; LYMPH ABS # 0.71 K/uL (1.2-3.4); MEAN PLATELET VOLUME 9.3 fL (7.4-10.4); MONO % 10.5 %; NEUT % 65.6 %; OVALOCYTES 1+; PLATELET COUNT 160 K/uL (130-400); PLT ESTIMATE NORMAL
[2017-10-11] MEDS ORDERED: ONDA4TAB10 SL (21:44)
[2017-10-11] MEDS ORDERED: NITR1CAP16 PO (21:44)
[2017-10-11] MEDS ORDERED: NITROFURANTOIN MONOHYDRATE 100 MG CAP PO ONE (21:45)
[2017-10-11] MEDS ORDERED: ONDANSETRON HOME PACK 4MG OD TAB PO ONE (21:45)
[2017-10-11 22:21] VITALS: BP 119/78; PULSE 98; O2SAT 97
[2017-10-11] MEDS ORDERED: SENN-61 PO (23:27)
[2017-10-11] MEDS ORDERED: FERR1TAB13 PO (23:27)
== END 2017-10-11 22:22 | disposition home or self-care (01) ==
LOC: C.EDB 18:53
DX: N39.0 Urinary tract infection, site not specified (principal); R11.2 Nausea with vomiting, unspecified; D64.9 Anemia, unspecified; R21 Rash and other nonspecific skin eruption

== ENCOUNTER 2017-10-14 15:27 | Inpatient (IN) | payer OTHER ==
[~2017-10-14] VITALS: Ht 157.5 cm; Wt 51.9 kg
[~2017-10-14 15:27] MED LIST changes: +NITR1CAP16 PO; +ONDA4TAB10 SL
[2017-10-14] MEDS ORDERED: ALUMINUM/MAGNESIUM/SIMETH (MAALOX MAX) 30 ML UDC PO PRN (18:15)
[2017-10-14] MEDS ORDERED: MAGNESIUM HYDROXIDE SUSP 30 ML UDC PO PRN (18:15)
[2017-10-14] MEDS ORDERED: POLYETHYLENE (MIRALAX) 17 GM PACK PO PRN (18:15)
[2017-10-14] MEDS ORDERED: SODIUM CHLORIDE 0.9% 500ML 500 ML IV ONE (18:30)
--- NOTE | 2017-10-14 18:34 | History and Physical ---
History & Physical Date & Time of Service: Oct 14, 2017 at 18:24 Chief Complaint: Dehydration Primary Care Physician: No Doctor, Assigned History of Present Illness Source: family 42 yo female PMH significant for microcytic anemia was directly admitted with 12 days of fever, nausea, vomiting and rash Pt reports nausea and vomiting being related to oral intake; she reports not being able to keep food and drink down. She says that she had come into the ED 3 days ago for similar symptoms and was ultimately treated for a urinary tract infection with Macrobid. She also reports a accompanying rash on her palms and feet. She describes the rash as painful dark red spots that erupt blood and scab over. reports that she has intermittently been having the rash over the course of the past three months. They say the lesions self resolve over a couple days and then reappear a couple days weeks later. Pt denies bloody emesis, hemoptysis, diarrhea, abdominal pain, chest pain or SOB. Pt denies any dysuria or bleeding with urination. Pt denies blood in her stool. Pt reports a PMH of microcytic anemia, diagnosed 20 years for which she takes Fe supplements. Pt is from [place] and accompanied by her . She does not speak Bulgarian fluently and provided translation. Patient is , all births ; denies any complications. Pt reports normal periods, but says that her last period lasted longer; 10 days with heavier bleeding. Pt denies smoking tobacco or drinking alcohol. Pt denies sick contacts or recent international travel. Past Medical/Surgical History Surgical Problems: (1) Hx of section Status: Resolved Family History Patient reports no known family medical history. Social History Smoking Status: Never Smoker Drug Use: none Marital Status: Allergies Coded Allergies: No Known Allergies (Unverified , 09/07/17) Home Medications Scheduled Ferrous Sulfate (Kp Ferrous Sulfate), 1 TAB PO DAILY Nitrofurantoin Monohyd Macro (Macrobid), 100 MG PO BID Ondasetron Odt (Zofran Odt), 4 MG SL Q4 Scheduled PRN Senna (Senokot), 1 TAB PO DAILY PRN for Constipation Review of Systems Constitutional: + fever, + chills, + sweats Respiratory: No cough, No sputum, No wheezing, No shortness of breath, No dyspnea on exertion Cardiovascular: No chest pain, No palpitations Abdomen: + nausea, + vomiting, No pain, No diarrhea, No constipation, No GI bleeding Genitourinary - Female: + menorrhagia, No dysuria, No hematuria Physical Exam General Appearance: WD/WN, no apparent distress Head: normocephalic, atraumatic ENT: + pertinent finding (appears to be petechia of the oral mucosa ) Neck: supple, + pertinent finding (soft, movable, palpable mass on right of the trachea consistent with thyromegaly ) Respiratory/Chest: chest non-tender, lungs clear, normal breath sounds, no respiratory distress Cardiovascular: regular rate, rhythm, no edema, no gallop, no JVD, no murmur Abdomen/GI: non tender, soft, no organomegaly, no pulsatile mass, + abnormal bowel sounds (hyperactive ) Neurologic/Psych: alert, normal mood/affect, oriented x 3 Skin: warm/dry, + rash (diffused petechia on her palmar surface of hands and feet; papular lesions, some are ulcerated ), + pertinent finding (2cm erythematous macula between eyebrows. Erythema around external nares ) Diagnostics Laboratory Results Results Past 24 Hours Test 10/14/17 18:06 10/14/17 18:20 Range/Units Diagnostic Radiology CHEST ONE VIEW PORTABLE CLINICAL HISTORY: Fever. COMPARISON STUDY: Chest radiograph September 07, 2017. FINDINGS: Lung volumes are normal. No pneumothorax or pleural effusion is present. Pulmonary vascularity is normal. Cardiac size is normal. Note is made of rightward deviation of the trachea below the level the thoracic inlet. IMPRESSION: Rightward deviation of the trachea below the level of the thoracic inlet. A mass lesion such as a goiter or lymphadenopathy cannot be excluded. A contrast-enhanced chest CT is recommended. Impression Assessment and Plan 42 yo woman presents with 12 days of fever, nausea, vomiting and palmar/plantar petechial rash Fever with rash on hand and feet with nausea/vomiting Initial workup targeted at infectious causes of symptoms. Also considering hemoglobinopathy/vasculitic/autoimmune causes for patient's presentation Treating the patient for dehydration, as well as treating the patients symptoms of nausea. -CXR, UA, UC, BC, -CBC w diff -Peripheral blood smear -Peripheral smear for parasites -Lyme IgG/IgM -EKG -Tylenol 650 Q4 PRN for fever Rash -Access patient for coagulopathy -Considering autoimmune/vasculitic causes -Ordering; PTT, CMP, ESR Nausea/Vomiting -NPO -IV Zofran -IVF NS 500ml bolus Thyromegaly -TSH, free T4 Microcytic Anemia -Hemoglobin electrophoresis -Iron, TIBC, ferritin DVT ppx; stockings and SCD's Level of Care Telemetry Resuscitation Status FULL RESUSCITATION VTE Prophylaxis VTE Risk Assessment Done? Y/N: Yes Risk Level: Moderate Given or contraindicated: T.E.D. Stockings, SCD's, Contraindicated Note Total Time: Critical Care 30 - 74 minutes Reviewed: Pt Seen/Exam by Me History 42 y/o F with chronic h/o microcytic anemia here with fever, nausea, vomiting and rash in hands and feet General Appearance: no apparent distress Respiratory: lungs clear, no respiratory distress Cardiovascular: regular rate, rhythm Gastrointestinal: normal bowel sounds, non tender, soft, no organomegaly Neurologic/Psychiatric: alert, oriented x 3 Skin Characteristics: other (both palm and sole with petechial rash) Assessment/Plan Resident Physician Supervision Note: I independently interviewed and examined the patient and verified the hurst history and physical, reviewed labs and image studies, discussed the case with the resident Dr. Nuñez and agree with the findings and care plan.
[2017-10-14 18:46] VITALS: BP 111/79; PULSE 138; TEMP 37.4; O2SAT 98
--- NOTE | 2017-10-14 18:55 | DIAGNOSTIC IMAGING REPORT ---
CHEST ONE VIEW PORTABLE CLINICAL HISTORY: Fever. COMPARISON STUDY: Chest radiograph September 07, 2017. FINDINGS: Lung volumes are normal. No pneumothorax or pleural effusion is present. Pulmonary vascularity is normal. Cardiac size is normal. Note is made of rightward deviation of the trachea below the level the thoracic inlet. IMPRESSION: Rightward deviation of the trachea below the level of the thoracic inlet. A mass lesion such as a goiter or lymphadenopathy cannot be excluded. A contrast-enhanced chest CT is recommended. Electronically signed by: Zack Gross M.D. 10/14/2017 6:54 PM Dictated Date/Time: 10/14/2017 6:47 PM
[2017-10-14 19:20] LABS: MEAN CELL VOLUME 78.1 fL (80-100); MEAN CORPUSCULAR HEMOGLOBIN 22.8 pg (25-34); MEAN CORPUSCULAR HGB CONC 29.2 g/dl (32-36); MEAN PLATELET VOLUME 10.3 fL (7.4-10.4); PLATELET COUNT 168 K/uL (130-400); WHITE BLOOD COUNT 2.72 K/uL (4.8-10.8)
[2017-10-14 19:21] LABS: INR 1.1 (0.9-1.1); PROTHROMBIN TIME (PATIENT) 11.3 SECONDS (9.0-12.0)
[2017-10-14 19:42] LABS: ALT/SGPT 12 U/L (12-78); BLOOD UREA NITROGEN 11 mg/dl (7-18); BUN/CREATININE RATIO 12.5 (10-20); CALCIUM 8.2 mg/dl (8.5-10.1); CARBON DIOXIDE 24 mmol/L (21-32); CHLORIDE 102 mmol/L (98-107); CREATININE 0.91 mg/dl (0.60-1.20); GLUCOSE 130 mg/dl (70-99); POTASSIUM 3.4 mmol/L (3.5-5.1); SODIUM 135 mmol/L (136-145)
[2017-10-14 19:45] VITALS: BP 111/79; PULSE 138; TEMP 37.4; O2SAT 98; Ht 157.5 cm; Wt 51.9 kg
[2017-10-14 19:50] LABS: ALB/GLOB RATIO 0.7 (0.9-2); ALKALINE PHOSPHATASE 61 U/L (45-117); AST/SGOT 23 U/L (15-37); THYROID STIMULATING HORMONE 0.176 uIu/ml (0.300-4.500); TOTAL IRON BINDING CAPACITY 358 mcg/dl (250-450)
[2017-10-14 20:01] LABS: LYME DISEASE AB IGG NEG (NEG); LYME DISEASE AB IGM NEG (NEG)
[2017-10-14] MEDS: SODIUM CHLORIDE 0.9% 1000ML 1,000 ML IV SCH ×2 (20:57→22:21)
[2017-10-14 21:05] LABS: ANISOCYTOSIS PRESENT; BASO % 0.4 %; BASO ABS # 0.01 K/uL (0-0.2); EOS % 0.4 %; LYMPH % 27.2 %; LYMPH ABS # 0.74 K/uL (1.2-3.4); MONO % 9.2 %; NEUT % 62.8 %
[2017-10-14 21:09] LABS: COMPLETE YES
[2017-10-14 22:20] LABS: PREG INTERNAL NEGATIVE QC NEG CLEAR BACKGROUND; PREG INTERNAL POSITIVE QC POS CONTROL LINE
[2017-10-14 22:50] LABS: URINE APPEARANCE CLEAR (CLEAR); URINE BILIRUBIN NEG (NEG); URINE COLOR YELLOW; URINE NITRITE NEG (NEG); URINE PH 5.5 (4.5-7.5); UROBILINOGEN NEG (NEG); ZZUR CULT IF INDIC CLEAN CATCH NO
[2017-10-14 22:51] LABS: MANUAL MICROSCOPIC REQUIRED? NO; REVIEW REQ? NO
[2017-10-14 23:47] VITALS: BP 116/73; PULSE 99; TEMP 38.1; O2SAT 94
[2017-10-15] VITALS (8 sets, daily range): BP systolic 100–118; BP diastolic 64–74; PULSE 79–99; TEMP 36.5–37.7; O2SAT 93–99
[2017-10-15] MEDS: LACTATED RINGER'S 1000ML 1,000 ML IV SCH ×3 (00:58→16:20)
[2017-10-15 08:01] LABS: MEAN CELL VOLUME 78.7 fL (80-100); MEAN CORPUSCULAR HGB CONC 29.2 g/dl (32-36); MEAN PLATELET VOLUME 9.2 fL (7.4-10.4); PLATELET COUNT 127 K/uL (130-400); RED BLOOD COUNT 3.05 M/uL (4.2-5.4); WHITE BLOOD COUNT 1.78 K/uL (4.8-10.8)
[2017-10-15 08:04] LABS: ANISOCYTOSIS PRESENT; BASO % 0.6 %; BASO ABS # 0.01 K/uL (0-0.2); COMPLETE YES; EOS % 3.4 %; HYPOCHROMIA PRESENT; LYMPH % 30.3 %; LYMPH ABS # 0.54 K/uL (1.2-3.4); MICROCYTOSIS PRESENT; MONO % 8.4 %; NEUT % 57.3 %; PLT ESTIMATE NORMAL; TOXIC GRANULATION 1+; VACUOLIZATION 1+
[2017-10-15 08:06] LABS: BUN/CREATININE RATIO 12.9 (10-20); CALCIUM 7.6 mg/dl (8.5-10.1); CREATININE 0.57 mg/dl (0.60-1.20); MAGNESIUM 2.1 mg/dl (1.8-2.4); POTASSIUM 3.6 mmol/L (3.5-5.1)
--- NOTE | 2017-10-15 09:32 | Family Medicine Progress Note ---
Progress Note Date of Service Oct 15, 2017. Subjective Pt evaluation today including: conversation w/ patient, physical exam, chart review, lab review Pt reports no changes overnight. Denies vomiting. Says that her fever is improving. Pt has limited Azeri fluency. will be available at late afternoon rounds. Constitutional: No fever, No chills, No sweats Respiratory: No cough, No sputum, No wheezing, No shortness of breath, No dyspnea on exertion Cardiovascular: No chest pain, No edema, No palpitations Abdomen: No pain, No nausea, No vomiting, No diarrhea Medications Current Inpatient Medications Medications (Trade) Dose Ordered Sig/Joby Route Start Time Stop Time Status Last Admin Dose Admin Acetaminophen (Tylenol Tab) 650 mg Q4H PRN PO 10/14/17 18:15 11/13/17 18:14 10/15/17 00:00 650 MG Al Hydrox/Mg Hydrox/Simethicone (Maalox Max Susp) 15 ml Q4H PRN PO 10/14/17 18:15 11/13/17 18:14 Magnesium Hydroxide (Milk Of Magnesia Susp) 30 ml Q12H PRN PO 10/14/17 18:15 11/13/17 18:14 Ondansetron HCl (Zofran Inj) 4 mg Q6H PRN IV 10/14/17 18:15 11/13/17 18:14 Polyethylene (Miralax Powder Packet) 17 gm DAILY PRN PO 10/14/17 18:15 11/13/17 18:14 Lactated Ringer's 1,000 ml @ 150 mls/hr Q6H40M IV 10/15/17 00:45 11/14/17 00:44 10/15/17 08:03 150 MLS/HR Potassium Chloride (Klor-Con Tab) 40 meq BID PO 10/15/17 09:00 10/16/17 09:00 Objective Vital Signs Date Time Temp Pulse Resp B/P (MAP) Pulse Ox O2 Delivery O2 Flow Rate FiO2 10/15/17 08:00 98 Room Air 10/15/17 06:55 36.5 79 16 109/68 (82) 98 Room Air 10/15/17 04:00 Room Air 10/15/17 03:24 36.7 82 16 103/68 (80) 97 Room Air 10/15/17 00:00 Room Air 10/14/17 23:47 38.1 99 16 116/73 (87) 94 Room Air 10/14/17 19:45 37.4 138 18 111/79 98 Room Air 10/14/17 18:46 37.4 138 18 111/79 (90) 98 Room Air Physical Exam General Appearance: WD/WN, no apparent distress Neck: supple, + pertinent finding (soft , movable subcutaneous mass right of the trachea. ) Respiratory/Chest: chest non-tender, lungs clear, normal breath sounds, no respiratory distress, no accessory muscle use Cardiovascular: regular rate, rhythm, no edema, no gallop, no JVD, no murmur Neurologic/Psychiatric: alert, normal mood/affect, oriented x 3 Skin: normal color, warm/dry, + pertinent finding (petechial rash on palmar/ plantar surface of hands and feet) Laboratory Results 10/15/17 07:02 Red Blood Count 3.05, Mean Corpuscular Volume 78.7, Mean Corpuscular Hemoglobin 23.0, Mean Corpuscular Hemoglobin Concent 29.2, Mean Platelet Volume 9.2, Neutrophils (%) (Auto) 57.3, Lymphocytes (%) (Auto) 30.3, Monocytes (%) (Auto) 8.4, Eosinophils (%) (Auto) 3.4, Basophils (%) (Auto) 0.6, Neutrophils # (Auto) 1.02, Lymphocytes # (Auto) 0.54, Monocytes # (Auto) 0.15, Eosinophils # (Auto) 0.06, Basophils # (Auto) 0.01 10/15/17 07:02 Test 10/14/17 18:24 10/14/17 18:54 10/14/17 22:05 10/15/17 07:02 Peripheral Blood Smear Path Consult Erythrocyte Sedimentation Rate 59 mm/hr (0-21) Prothrombin Time 11.3 SECONDS (9.0-12.0) Prothromb Time International Ratio 1.1 (0.9-1.1) Iron Level 22 mcg/dl (35-150) Total Iron Binding Capacity 358 mcg/dl (250-450) Ferritin 28.0 ng/ml (8.0-388.0) Total Bilirubin 0.6 mg/dl (0.2-1) Aspartate Amino Transf (AST/SGOT) 23 U/L (15-37) Alanine Aminotransferase (ALT/SGPT) 12 U/L (12-78) Alkaline Phosphatase 61 U/L (45-117) Troponin I < 0.015 ng/ml (0-0.045) Total Protein 8.9 gm/dl (6.4-8.2) Albumin 3.6 gm/dl (3.4-5.0) Globulin 5.3 gm/dl (2.5-4.0) Albumin/Globulin Ratio 0.7 (0.9-2) Thyroid Stimulating Hormone (TSH) 0.176 uIu/ml (0.300-4.500) Free Thyroxine 1.14 ng/dl (0.80-1.60) Lyme Disease IgG Antibody NEG (NEG) Lyme Disease IgM Antibody NEG (NEG) Urine Color YELLOW Urine Appearance CLEAR (CLEAR) Urine pH 5.5 (4.5-7.5) Urine Specific [place] 1.010 (1.000-1.030) Urine Protein NEG (NEG) Urine Glucose (UA) NEG (NEG) Urine Ketones NEG (NEG) Urine Occult Blood 2+ (NEG) Urine Nitrite NEG (NEG) Urine Bilirubin NEG (NEG) Urine Urobilinogen NEG (NEG) Urine Leukocyte Esterase NEG (NEG) Urine WBC (Auto) 1-5 /hpf (0-5) Urine RBC (Auto) 5-10 /hpf (0-4) Urine Hyaline Casts (Auto) 0 /lpf (0-5) Urine Epithelial Cells (Auto) 10-20 /lpf (0-5) Urine Bacteria (Auto) NEG (NEG) Urine Test NEG (NEG) White Blood Count 1.78 K/uL (4.8-10.8) Red Blood Count 3.05 M/uL (4.2-5.4) Hemoglobin 7.0 g/dL (12.0-16.0) Hematocrit 24.0 % (37-47) Mean Corpuscular Volume 78.7 fL (80-100) Mean Corpuscular Hemoglobin 23.0 pg (25-34) Mean Corpuscular Hemoglobin Concent 29.2 g/dl (32-36) Platelet Count 127 K/uL (130-400) Mean Platelet Volume 9.2 fL (7.4-10.4) Neutrophils (%) (Auto) 57.3 % Lymphocytes (%) (Auto) 30.3 % Monocytes (%) (Auto) 8.4 % Eosinophils (%) (Auto) 3.4 % Basophils (%) (Auto) 0.6 % Neutrophils # (Auto) 1.02 K/uL (1.4-6.5) Lymphocytes # (Auto) 0.54 K/uL (1.2-3.4) Monocytes # (Auto) 0.15 K/uL (0.11-0.59) Eosinophils # (Auto) 0.06 K/uL (0-0.5) Basophils # (Auto) 0.01 K/uL (0-0.2) RDW Standard Deviation 63.3 fL (36.4-46.3) RDW Coefficient of Variation 21.6 % (11.5-14.5) Immature Granulocyte % (Auto) 0.0 % Immature Granulocyte # (Auto) 0.00 K/uL (0.00-0.02) Toxic Granulation 1+ Toxic Vacuolation 1+ Platelet Estimate NORMAL Hypochromasia PRESENT Anisocytosis PRESENT Microcytosis PRESENT Anion Gap 9.0 mmol/L (3-11) Est Creatinine Clear Calc Drug Dose 101.7 ml/min Estimated GFR () 132.5 Estimated GFR (Non- 114.3 BUN/Creatinine Ratio 12.9 (10-20) Calcium Level 7.6 mg/dl (8.5-10.1) Magnesium Level 2.1 mg/dl (1.8-2.4) Assessment and Plan 42 yo woman presents with 12 days of fever, nausea, vomiting and palmar/plantar petechial rash Fever with nausea/vomiting for 10 days with underlying rash off and on for 4mths -Start broad spectrum abx. -Cultures pending -CXR with no acute cardio-pul pathology -WBC lower -Peripheral blood smear - negative. -Lyme IgG/IgM were negative -EKG-Sinus tachycardia -Tylenol 650 Q4 PRN for fever -ID consult - rickettsial titre, RPR, MANINDER, Rash -see above work up Neck swelling -CXR showed right sided deviation of the trachea, Chest Ct with contrast ordered. TSH low, free T4 normal Microcytic Anemia -Hemoglobin electrophoresis pending -Hypochromia and anisocytosis seen -hematology consulted -Iron, TIBC, ferritin Neutropenia -? sec to infection. -Hematology consult. Nausea/Vomiting -Advance diet to clears and further as tolerated -IV Protonix. -IV Zofran -IVF NS 500ml bolus DVT ppx; stockings and SCD's Reviewed: Pt Seen/Exam by Me History continuing to have fever still having nausea Constitutional: acknowledges: fever Respiratory: negative: short of breath Cardiovascular: denies chest pain Gastrointestinal/Abdominal: positive: nausea General Appearance: no apparent distress Neck: supple, other (neck - right side soft lump - ? goiter) Respiratory: lungs clear, no respiratory distress Cardiovascular: regular rate, rhythm Gastrointestinal: normal bowel sounds, non tender, soft Neurologic/Psychiatric: alert, oriented x 3 Skin Characteristics: warm/dry Assessment/Plan Resident Physician Supervision Note: I independently interviewed and examined the patient and verified the hurst history and physical, reviewed labs and image studies, discussed the case with the resident Dr. Nuñez and agree with the findings and care plan.
[2017-10-15] MEDS: POTASSIUM CHLORIDE 20 MEQ TABCR PO SCH ×2 (10:25→20:35)
[2017-10-15] MEDS: CEFEPIME IV 2,000 MG in SYRINGE 7.5 ML IV SCH ×2 (10:25→18:28)
[2017-10-15] MEDS ORDERED: VANCOMYCIN INJ 1,500 MG in SODIUM CHLORIDE 0.9% 500ML 500 ML IV ONE (10:30)
--- NOTE | 2017-10-15 11:21 | Medical Consult ---
Consultation Date of Consultation: Oct 15, 2017. Attending Physician: Ana Knox M.D. Reason for Consultation: Fever, neutropenia History of Present Illness 42-year-old female from [place], here in the [place] for the last 2 years, most recently in [place] now in [place], with history of chronic anemia , who was admitted to the hospital with 2 week history of progressively worsening nausea, vomiting anorexia, intermittent fevers, and rash on her hands and feet. Apparently rash started several months ago, described as painful redness lesions on palms and soles which can developed superficial ulcerations and then desquamate. She has had mild arthralgias and myalgias. Has now been found to be pancytopenic with dropping white count and platelet count since admission. She denies any other significant travel or exposure history, no ill contacts. Malaria smear is negative x1. Blood cultures are negative to date. Patient started empirically on vancomycin and cefepime. Past Medical/Surgical History Medical Problems: (1) Chronic anemia Status: Acute (2) Leukopenia Status: Acute (3) Microcytic anemia Status: Acute (4) Nausea & vomiting Status: Acute (5) Urinary tract infection Status: Acute Medical Problems: (1) Fever (2) Rash Surgical Problems: (1) Hx of section Family History Patient reports no known family medical history. Social History Smoking Status: Never Smoker Drug Use: none Marital Status: Housing Status: lives with significant other Allergies Coded Allergies: No Known Allergies (Unverified , 09/07/17) Current Inpatient Medications Current Inpatient Medications Medications (Trade) Dose Ordered Sig/Joby Route Start Time Stop Time Status Last Admin Dose Admin Acetaminophen (Tylenol Tab) 650 mg Q4H PRN PO 10/14/17 18:15 11/13/17 18:14 10/15/17 00:00 650 MG Al Hydrox/Mg Hydrox/Simethicone (Maalox Max Susp) 15 ml Q4H PRN PO 10/14/17 18:15 11/13/17 18:14 Magnesium Hydroxide (Milk Of Magnesia Susp) 30 ml Q12H PRN PO 10/14/17 18:15 11/13/17 18:14 Ondansetron HCl (Zofran Inj) 4 mg Q6H PRN IV 10/14/17 18:15 11/13/17 18:14 Polyethylene (Miralax Powder Packet) 17 gm DAILY PRN PO 10/14/17 18:15 11/13/17 18:14 Lactated Ringer's 1,000 ml @ 150 mls/hr Q6H40M IV 10/15/17 00:45 11/14/17 00:44 10/15/17 08:03 150 MLS/HR Potassium Chloride (Klor-Con Tab) 40 meq BID PO 10/15/17 09:00 10/16/17 09:00 10/15/17 10:25 40 MEQ Vancomycin HCl 1000 mg/Sodium Chloride 270 ml @ 125 mls/hr Q10H IV 10/15/17 20:00 10/17/17 19:59 Cefepime HCl 2000 mg/Syringe 20 ml @ 5 mls/min Q8H IV 10/15/17 10:00 10/17/17 09:59 10/15/17 10:25 5 MLS/MIN Vancomycin HCl 1500 mg/Sodium Chloride 530 ml @ 200 mls/hr NOW ONCE IV 10/15/17 10:30 10/15/17 13:08 10/15/17 11:09 200 MLS/HR Review of Systems Constitutional: + fever, + chills, + weakness, + fatigue Eyes: No problem reported ENT: No problem reported Respiratory: No problem reported Abdomen: + pain Musculoskeletal: + joint pain, + muscle pain Genitourinary - Female: + dysuria Neurologic: No problem reported Psychiatric: No problem reported Endocrine: No problem reported Hematologic / Lymphatic: No problem reported Integumentary: + new/changing skin lesions Allergic / Immunologic: No problem reported Physical Exam Date Time Temp Pulse Resp B/P (MAP) Pulse Ox O2 Delivery O2 Flow Rate FiO2 10/15/17 11:12 37.5 89 20 114/72 (86) 99 Room Air 10/15/17 08:00 98 Room Air 10/15/17 06:55 36.5 79 16 109/68 (82) 98 Room Air 10/15/17 04:00 Room Air 10/15/17 03:24 36.7 82 16 103/68 (80) 97 Room Air 10/15/17 00:00 Room Air 10/14/17 23:47 38.1 99 16 116/73 (87) 94 Room Air 10/14/17 19:45 37.4 138 18 111/79 98 Room Air 10/14/17 18:46 37.4 138 18 111/79 (90) 98 Room Air General Appearance: WD/WN, no apparent distress, + thin Head: normocephalic, atraumatic Eyes: normal inspection, EOMI, sclerae normal ENT: normal ENT inspection, hearing grossly normal, pharynx normal Neck: supple, no adenopathy, + thyroid abnormalities (Markedly enlarged thyroid ) Respiratory/Chest: chest non-tender, lungs clear, normal breath sounds, no respiratory distress Cardiovascular: regular rate, rhythm, no gallop, no murmur Abdomen/GI: normal bowel sounds, non tender, soft, no organomegaly Back: normal inspection, no CVA tenderness Extremities/Musculoskelatal: no calf tenderness, non-tender Neurologic/Psych: alert, oriented x 3 Skin: normal color, + pertinent finding (Scaly papular rash on palms and soles , macular rash on nasal bridge) Lymphatic: no adenopathy Laboratory Results Date/Time Source Procedure Growth Status 10/14/17 18:54 Blood Blood Culture Pending Received 10/14/17 18:50 Blood Blood Culture Pending Received 10/14/17 18:24 Blood Parasitology Test - Final Complete Last 24 Hours Test 10/14/17 18:24 10/14/17 18:54 10/14/17 22:05 10/15/17 07:02 White Blood Count 2.72 K/uL 1.78 K/uL Red Blood Count 3.20 M/uL 3.05 M/uL Hemoglobin 7.3 g/dL 7.0 g/dL Hematocrit 25.0 % 24.0 % Mean Corpuscular Volume 78.1 fL 78.7 fL Mean Corpuscular Hemoglobin 22.8 pg 23.0 pg Mean Corpuscular Hemoglobin Concent 29.2 g/dl 29.2 g/dl Platelet Count 168 K/uL 127 K/uL Mean Platelet Volume 10.3 fL 9.2 fL Neutrophils (%) (Auto) 62.8 % 57.3 % Lymphocytes (%) (Auto) 27.2 % 30.3 % Monocytes (%) (Auto) 9.2 % 8.4 % Eosinophils (%) (Auto) 0.4 % 3.4 % Basophils (%) (Auto) 0.4 % 0.6 % Neutrophils # (Auto) 1.71 K/uL 1.02 K/uL Lymphocytes # (Auto) 0.74 K/uL 0.54 K/uL Monocytes # (Auto) 0.25 K/uL 0.15 K/uL Eosinophils # (Auto) 0.01 K/uL 0.06 K/uL Basophils # (Auto) 0.01 K/uL 0.01 K/uL RDW Standard Deviation 60.3 fL 63.3 fL RDW Coefficient of Variation 21.0 % 21.6 % Immature Granulocyte % (Auto) 0.0 % 0.0 % Immature Granulocyte # (Auto) 0.00 K/uL 0.00 K/uL Anisocytosis PRESENT PRESENT Peripheral Blood Smear Path Consult Erythrocyte Sedimentation Rate 59 mm/hr Prothrombin Time 11.3 SECONDS Prothromb Time International Ratio 1.1 Sodium Level 135 mmol/L 142 mmol/L Potassium Level 3.4 mmol/L 3.6 mmol/L Chloride Level 102 mmol/L 110 mmol/L Carbon Dioxide Level 24 mmol/L 23 mmol/L Anion Gap 10.0 mmol/L 9.0 mmol/L Blood Urea Nitrogen 11 mg/dl 7 mg/dl Creatinine 0.91 mg/dl 0.57 mg/dl Estimated GFR () 90.2 132.5 Estimated GFR (Non- 77.8 114.3 BUN/Creatinine Ratio 12.5 12.9 Random Glucose 130 mg/dl 77 mg/dl Calcium Level 8.2 mg/dl 7.6 mg/dl Iron Level 22 mcg/dl Total Iron Binding Capacity 358 mcg/dl Ferritin 28.0 ng/ml Total Bilirubin 0.6 mg/dl Aspartate Amino Transf (AST/SGOT) 23 U/L Alanine Aminotransferase (ALT/SGPT) 12 U/L Alkaline Phosphatase 61 U/L Troponin I < 0.015 ng/ml Total Protein 8.9 gm/dl Albumin 3.6 gm/dl Globulin 5.3 gm/dl Albumin/Globulin Ratio 0.7 Thyroid Stimulating Hormone (TSH) 0.176 uIu/ml Free Thyroxine 1.14 ng/dl Lyme Disease IgG Antibody NEG Lyme Disease IgM Antibody NEG Urine Color YELLOW Urine Appearance CLEAR Urine pH 5.5 Urine Specific Hazen 1.010 Urine Protein NEG Urine Glucose (UA) NEG Urine Ketones NEG Urine Occult Blood 2+ Urine Nitrite NEG Urine Bilirubin NEG Urine Urobilinogen NEG Urine Leukocyte Esterase NEG Urine WBC (Auto) 1-5 /hpf Urine RBC (Auto) 5-10 /hpf Urine Hyaline Casts (Auto) 0 /lpf Urine Epithelial Cells (Auto) 10-20 /lpf Urine Bacteria (Auto) NEG Urine Test NEG Toxic Granulation 1+ Toxic Vacuolation 1+ Platelet Estimate NORMAL Hypochromasia PRESENT Microcytosis PRESENT Est Creatinine Clear Calc Drug Dose 101.7 ml/min Magnesium Level 2.1 mg/dl Patient Name: ARCHANA GUERRA Unit Number: [id number] Dictated: 10/14/171846 Transcribed: 10/14/171846 JA Printed Date/Time: [~ rep prt dt]/[~ rep prt tm] [~ rep ct labl] - [~ rep ct ivnm] [facility] Radiology Department [place] [id number] Dictated: 10/14/171846 Transcribed: 10/14/171846 JA Printed Date/Time: [~ rep prt dt]/[~ rep prt tm] [~ rep ct labl] - [~ rep ct ivnm] CLINICAL HISTORY: Fever. COMPARISON STUDY: Chest radiograph September 07, 2017. FINDINGS: Lung volumes are normal. No pneumothorax or pleural effusion is present. Pulmonary vascularity is normal. Cardiac size is normal. Note is made of rightward deviation of the trachea below the level the thoracic inlet. IMPRESSION: Rightward deviation of the trachea below the level of the thoracic inlet. A mass lesion such as a goiter or lymphadenopathy cannot be excluded. A contrast-enhanced chest CT is recommended. Electronically signed by: Zack Gross M.D. 10/14/2017 6:54 PM Dictated Date/Time: 10/14/2017 6:47 PM The status of this report is Signed. Draft = Not yet reviewed or approved by Radiologist. Signed = Reviewed and approved by Radiologist. <AttendingPhy>Naveen Quijano MD</AttendingPhy> <FamilyPhy>No Doctor, Assigned</FamilyPhy> <PrimaryPhy>No Doctor, Assigned</PrimaryPhy> <UnitNumber> [id number]</UnitNumber> <VisitNumber>[id number]</VisitNumber> <PatientName> ARCHANA GUERRA</PatientName> <DateOfBirth>1975</DateOfBirth> <Location>[facility] </Location> <ServiceDate></ServiceDate> <MNE>ESINDI</MNE> <OrderingPhy>Kenyetta Oakley MD</OrderingPhy> <OrderingPhyMNE>f rep ord dr monroe</OrderingPhyMNE> < DictatingPhyMNE>f rep dict dr monroe</DictatingPhyMNE> <CCListMNE>f rep ct mne</ CCListMNE> <AdmittingPhyMNE>f pt admit dr monroe</AdmittingPhyMNE> <AttendingPhyMNE >f pt attend dr monroe</AttendingPhyMNE> <ConsultingPhyMNE>f pt consult dr monroe</ConsultingPhyMNE> <FamilyPhyMNE>f pt fam dr monroe</FamilyPhyMNE> <OtherPhyMNE>f pt other dr monroe</OtherPhyMNE> < PrimaryPhyMNE>f pt prim care dr monroe</PrimaryPhyMNE> <ReferringPhyMNE>f pt referring dr monroe</ReferringPhyMNE> Assessment & Plan 42-year-old female with history of chronic anemia, now with progressive pancytopenia as well as 3 month history of rash involving the palms and soles as well as her face. Infectious causes such as meningococcemia or Marianne spotted fever seems unlikely given prolonged nature of illness. Will check for parvovirus and syphilis, but would also recommend workup for autoimmune disease or less likely occult neoplastic process. Given fever and neutropenia, antibiotics seem appropriate for now, we will adjust once further culture results and lab work available. Will discuss with all involved.
[2017-10-15] MEDS: ONDANSETRON INJ 2 MG/ML 2 ML VIAL IV PRN ×2 (13:00→19:02)
[2017-10-15] MEDS: ACETAMINOPHEN 325 MG TAB PO PRN ×3 (13:05→19:13)
[2017-10-15] MEDS ORDERED: OPTIRAY 320 IV PRN (13:45)
--- NOTE | 2017-10-15 15:05 | DIAGNOSTIC IMAGING REPORT ---
CT OF THE CHEST WITH IV CONTRAST CLINICAL HISTORY: Tracheal deviation on chest radiograph with possible neck mass. Fever. COMPARISON STUDY: Chest radiograph October 14, 2017. TECHNIQUE: Following IV administration of 93 mL of Optiray-320, helical axial images of the chest were obtained. Sagittal and coronal reconstructions were viewed as well as maximal intensity projections on an independent 3-D workstation. A dose lowering technique was utilized adhering to the principles of ALARA. CT DOSE: 172.32 mGycm FINDINGS: Moderate cardiomegaly is noted. There is trace pericardial effusion. There are small bilateral pleural effusions. No pneumothorax is present. Lower lobe opacities suggest atelectasis. There is no consolidation to suggest pneumonia. Note is made of marked asymmetric heterogeneous enlargement of the left thyroid lobe which measures 5.5 x 5.2 cm and accounts for tracheal deviation on chest radiograph. There is minimal peripheral calcification. There are moderately enlarged bilateral axillary lymph nodes. Index left axillary lymph node measures 1.6 x 1.5 cm and an index right axillary left node measures 1.8 x 1.3 cm. No suspicious osseous lesions are noted. Mild splenomegaly is noted. Upper abdomen is otherwise unremarkable. IMPRESSION: 1. Marked asymmetric heterogeneous enlargement of the left thyroid lobe which accounts for tracheal deviation shown on prior chest radiograph. A thyroid goiter is strongly favored however follow-up ultrasound guided fine needle aspiration is recommended to exclude less likely etiologies. 2. Moderate bilateral axillary lymphadenopathy and mild splenomegaly. The findings are nonspecific and could reflect a lymphoproliferative process such as lymphoma. However, an infectious etiology such as mononucleosis could appear similar. 3. Small bilateral pleural effusions. 4. Mild to moderate cardiomegaly with trace pericardial effusion. Electronically signed by: Zack Gross M.D. 10/15/2017 3:04 PM Dictated Date/Time: 10/15/2017 2:51 PM
--- NOTE | 2017-10-15 16:53 | HEMATOLOGY CONSULTATION ---
DATE OF CONSULTATION: 10/15/2017 REASON FOR CONSULTATION: Evaluate for microcytic anemia. HISTORY OF PRESENT ILLNESS: Alicia is a pleasant 42-year-old [place] female who presents with nausea and vomiting related to oral intake. Unfortunately, the patient herself does not speak adequate Polish and fortunately her was at bedside to provide clinical information. Currently, the patient had presented to the emergency room 3 days prior with similar symptoms and was diagnosed with a urinary tract infection and subsequently prescribed Macrobid. Interestingly, she reports a papular rash which involves the palms and soles bilaterally. It first appeared 3 months ago; apparently improved; however, recently redeveloped it once again. The rash again appears to be several papules that are dark in color that apparently bleed upon disruption. Again, the lesions had resolved spontaneously and then returned. The patient also reports low grade fever which has been persistent over the past 10 days or so. Infectious disease is currently on consult. I have been asked to see this young lady because of a long history of microcytic anemia. According to the , she was diagnosed with the microcytic anemia 20 years ago and was actually treated intermittently with both oral and IV iron preparations. reports on initial IV iron supplementation, the patient tolerated well; however, the second time resulted in an anaphylactic reaction. Unfortunately, he does not remember the product that was administered at that time. The patient [place] and to 's knowledge does not have any known relatives who suffer from thalassemia. Primary service ordered a hemoglobin electrophoresis. I have also informally asked them to add a reticulocyte count as well. PAST MEDICAL HISTORY: Otherwise, unremarkable. PAST SURGICAL HISTORY: Status post section. MEDICATIONS: The patient was on Macrobid for urinary tract infection 4 mg p.o. b.i.d.; ferrous sulfate, dose unknown 1 tablet p.o. every day; Zofran ODT 4 mg sublingual q. 4 hours p.r.n. ALLERGIES: No known drug allergies. FAMILY HISTORY: Again for the most part unremarkable. SOCIAL HISTORY: The patient is , nonsmoker, and nondrinker. REVIEW OF SYSTEMS: CONSTITUTIONAL: Positive for fevers, chills and sweats. The patient has been anorexic over the last couple of weeks. No dramatic weight loss per se. SKIN: Again, erythematous papular rash involving her palms and soles is once again present, no history of dermatoses otherwise. HEENT: Negative for headaches, lightheadedness, dizziness. No visual or hearing deficits. No sinus symptoms, sore throat or dysphagia. No acute visual or hearing deficits. LYMPHATIC: No history of lymphoproliferative disease, no angina, no palpable lymphadenopathy. CARDIAC: Negative for coronary artery disease. No current angina or palpitations. PULMONARY: Negative for COPD. No shortness of breath, dyspnea or orthopnea. No cough or hemoptysis. GASTROINTESTINAL: Again, positive for nausea and vomiting, no diarrhea or constipation reported. No hematochezia or melena stools or rick rectal bleeding. GENITOURINARY: Recent diagnosis of urinary tract infection, currently on antibiotics. MUSCULOSKELETAL: No arthralgias or myalgias. No muscle weakness. PSYCHIATRIC: No history of anxiety, depression or psychoses. ENDOCRINE: Negative for diabetes or thyroid disease. NEUROLOGIC: Negative for seizure, stroke, or migraine headache. HEMATOLOGIC: Positive for microcytic anemia. PHYSICAL EXAMINATION: GENERAL: Very pleasant 42-year-old [place] female in no acute distress, awake, alert and conversant. VITAL SIGNS: Temperature 37.5, pulse 89, respirations 20, blood pressure 114/72. SKIN: Rashes described in the HPI encompassing palms and soles. HEENT: Atraumatic, normocephalic. Eyes: PERRLA, EOMI. Sclerae are nonicteric. Nares patent. Throat clear. Tongue midline. No buccal lesions or ulcerations noted. NECK: Supple without JVD or thyromegaly. LYMPH: No cervical, supraclavicular, axillary palpable nodes. HEART: Regular rate and rhythm. No clicks, rubs or murmurs. LUNGS: Clear to auscultation bilaterally. ABDOMEN: Soft, nontender, nondistended, without palpable hepatosplenomegaly. EXTREMITIES: No calf tenderness or swelling. No clubbing, cyanosis or edema. NEUROLOGIC: She is awake, alert and oriented x3. LABORATORY AND IMAGING DATA: WBC count 1780, hemoglobin 7, MCV 78.7, platelet count 127,000, absolute neutrophil count 1020, hemoglobin electrophoresis pending. PT 11.3 seconds. Sodium 142, potassium 3.6, chloride 110, carbon dioxide 23, BUN 17, creatinine 0.57. CT scan of the chest done on admission reveals moderate bilateral axillary lymphadenopathy and mild splenomegaly, small bilateral pleural effusions and trace pericardial effusion is noted. IMPRESSION: 1. Fever of unknown etiology. 2. Pancytopenia. 3. Microcytic anemia by history. PLAN: I have been asked the primary service to evaluate this very pleasant 42-year-old [place] female who presented with fever along with nausea and vomiting. Apparently, she presented to the Emergency Room 3 days ago and received antibiotics, Macrobid, specifically for her infection. Obviously, her symptoms had not improved; she was subsequently admitted and noted to be mildly pancytopenic. This patient also has a lengthy history of microcytic anemia thought to be secondary to iron deficiency. She has received iron supplementation both intravenously and more recently orally. Primary service astutely obtained a hemoglobin electrophoresis to evaluate her for underlying thalassemia. Clearly, her pancytopenia I suspect it is from an infectious or autoimmune process less likely a lymphoproliferative process. Infectious disease is on consultation and we will await her culture results. If blood or urine is negative, I would proceed with lumbar puncture to culture cerebrospinal fluid. I agree with proceeding with broad spectrum antimicrobials. I will continue to follow the patient with you during her hospital stay. Drug-induced aplastic anemia should be considered in the differential diagnosis. Thank you very much for allowing me to participate in the care of this very pleasant, somewhat complex patient. ZANE
[2017-10-15] MEDS: VANCOMYCIN INJ 1,000 MG in SODIUM CHLORIDE 0.9% 250ML 250 ML IV SCH (20:34)
[2017-10-16] VITALS (18 sets, daily range): BP systolic 103–135; BP diastolic 65–82; PULSE 85–105; TEMP 36.6–38.9; O2SAT 95–100
[2017-10-16] MEDS: CEFEPIME IV 2,000 MG in SYRINGE 7.5 ML IV SCH ×3 (02:08→18:49)
[2017-10-16] MEDS: LACTATED RINGER'S 1000ML 1,000 ML IV SCH ×2 (02:08→09:49)
[2017-10-16] MEDS: ONDANSETRON INJ 2 MG/ML 2 ML VIAL IV PRN (03:27)
[2017-10-16] MEDS: ACETAMINOPHEN 325 MG TAB PO PRN (03:44)
[2017-10-16] MEDS: VANCOMYCIN INJ 1,000 MG in SODIUM CHLORIDE 0.9% 250ML 250 ML IV SCH ×2 (05:42→16:56)
[2017-10-16 06:40] LABS: HEMATOCRIT 22.8 % (37-47); MEAN CELL VOLUME 78.1 fL (80-100); MEAN CORPUSCULAR HEMOGLOBIN 23.3 pg (25-34); MEAN CORPUSCULAR HGB CONC 29.8 g/dl (32-36); MEAN PLATELET VOLUME 9.1 fL (7.4-10.4); PLATELET COUNT 135 K/uL (130-400); RED BLOOD COUNT 2.92 M/uL (4.2-5.4); WHITE BLOOD COUNT 2.47 K/uL (4.8-10.8)
[2017-10-16 06:51] LABS: ANISOCYTOSIS PRESENT; BASO % 1.6 %; BASO ABS # 0.04 K/uL (0-0.2); COMPLETE YES; EOS % 3.6 %; HYPOCHROMIA PRESENT; IG% 0.4 %; LYMPH % 26.3 %; LYMPH ABS # 0.65 K/uL (1.2-3.4); MICROCYTOSIS PRESENT; MONO % 10.5 %; NEUT % 57.6 %; OVALOCYTES 1+
[2017-10-16 07:02] LABS: BUN/CREATININE RATIO 7.4 (10-20); CREATININE 0.65 mg/dl (0.60-1.20); POTASSIUM 4.2 mmol/L (3.5-5.1)
--- NOTE | 2017-10-16 08:04 | Family Medicine Progress Note ---
Progress Note Date of Service Oct 16, 2017. Subjective Pt evaluation today including: conversation w/ patient, conversation w/ family , physical exam, chart review, lab review Pt is accompanied by her is translating. He says that she is feeling better, less fevers. She reports that she is still feeling nauseous and has vomited after drinking juice. Objective Vital Signs Date Time Temp Pulse Resp B/P (MAP) Pulse Ox O2 Delivery O2 Flow Rate FiO2 10/16/17 15:25 37.0 90 18 130/70 97 10/16/17 14:50 36.9 96 20 112/79 (90) 97 Room Air 10/16/17 14:35 37.0 94 20 106/70 (82) 96 Room Air 10/16/17 13:55 36.8 92 20 103/69 (80) 96 Room Air 10/16/17 13:00 36.6 97 18 104/69 96 10/16/17 12:42 100 Room Air 10/16/17 12:29 37.0 100 18 123/77 97 10/16/17 12:00 36.9 90 18 121/77 100 10/16/17 11:45 37.0 85 20 115/70 (85) 100 Room Air 10/16/17 11:38 36.9 97 18 121/76 (91) 97 Room Air 10/16/17 11:12 Room Air 10/16/17 07:55 Room Air 10/16/17 07:18 36.9 88 22 105/68 (80) 99 Room Air 10/16/17 07:13 37.5 87 16 104/65 (78) 99 Room Air 10/16/17 04:53 37.5 10/16/17 04:00 Room Air 10/16/17 03:44 38.9 10/16/17 03:08 105 18 117/70 (86) 95 Room Air 10/16/17 00:00 Room Air 10/15/17 23:32 37.6 99 18 100/64 (76) 93 Room Air 10/15/17 20:00 Room Air 10/15/17 19:32 37.1 99 16 118/74 (89) 98 Room Air 10/15/17 19:00 37.7 10/15/17 16:00 Room Air Physical Exam General Appearance: WD/WN, no apparent distress Respiratory/Chest: chest non-tender, lungs clear, normal breath sounds, no respiratory distress, no accessory muscle use Cardiovascular: regular rate, rhythm, no edema, no gallop, no JVD, no murmur Abdomen: normal bowel sounds, non tender, soft, no organomegaly, no pulsatile mass Neurologic/Psychiatric: alert, normal mood/affect, oriented x 3 Skin: normal color, warm/dry, + pertinent finding (petechia rash on palmar and plantar surfaces of bilateral feet and hands. 1.5 cm Erythematous macula between her eyebrows. ) Laboratory Results Test 10/16/17 00:00 10/16/17 06:00 10/16/17 15:49 Stool Occult Blood NEGATIVE (NEGATIVE) RDW Standard Deviation 60.5 fL (36.4-46.3) RDW Coefficient of Variation 21.1 % (11.5-14.5) White Blood Count 2.47 K/uL (4.8-10.8) Red Blood Count 2.92 M/uL (4.2-5.4) Hemoglobin 6.8 g/dL (12.0-16.0) Hematocrit 22.8 % (37-47) Mean Corpuscular Volume 78.1 fL (80-100) Mean Corpuscular Hemoglobin 23.3 pg (25-34) Mean Corpuscular Hemoglobin Concent 29.8 g/dl (32-36) Platelet Count 135 K/uL (130-400) Mean Platelet Volume 9.1 fL (7.4-10.4) Neutrophils (%) (Auto) 57.6 % Lymphocytes (%) (Auto) 26.3 % Monocytes (%) (Auto) 10.5 % Eosinophils (%) (Auto) 3.6 % Basophils (%) (Auto) 1.6 % Neutrophils # (Auto) 1.42 K/uL (1.4-6.5) Lymphocytes # (Auto) 0.65 K/uL (1.2-3.4) Monocytes # (Auto) 0.26 K/uL (0.11-0.59) Eosinophils # (Auto) 0.09 K/uL (0-0.5) Basophils # (Auto) 0.04 K/uL (0-0.2) Immature Granulocyte % (Auto) 0.4 % Immature Granulocyte # (Auto) 0.01 K/uL (0.00-0.02) Hypochromasia PRESENT Anisocytosis PRESENT Microcytosis PRESENT Ovalocytes 1+ Est Creatinine Clear Calc Drug Dose 89.2 ml/min Assessment and Plan 42 yo woman presents with 12 days of fever, nausea, vomiting and palmar/plantar petechial rash Fever with nausea/vomiting for 10 days with underlying rash off and on for 4mths -Continue Vancomycin and Cefepime -Cultures pending preliminarily positive for gram negative species-->likely contaminate -ID consult - rickettsial titre, RPR, MANINDER-->RPR nonreactive, others pending -Lyme IgG/IgM were negative -Mckinley screen is negative -CXR with no acute cardio-pul pathology -WBC improving from yesterday -ECHO ordered today -Tylenol 650 Q4 PRN for fever Rash -see above work up Neck swelling -CXR showed right sided deviation of the trachea. 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 -Ct chest with - axillary lymphadenopathy and splenomegaly -immunoelectrophoresis, -CMV and EBV studies ordered, Microcytic Anemia -Hemoglobin electrophoresis pending -Hypochromia and anisocytosis seen -Pt's Hgb dropped below 7 today, 1 unit of PRBC given, pretreated with Benadryl and Tylenol -hematology consulted -Iron, TIBC, ferritin Neutropenia -? sec to infection. -Hematology consult. Nausea/Vomiting -Advance diet to clears and further as tolerated -IV Protonix. -IV Zofran -d/c IVF if tolerates po well DVT ppx; stockings and SCD's Reviewed: Pt Seen/Exam by Me History was hungry last night. nauseous this am and threw up but wanted to have lunch. diet advanced - tolerated Constitutional: acknowledges: fever (this am) Respiratory: negative: short of breath Cardiovascular: denies chest pain Gastrointestinal/Abdominal: negative: abdominal pain General Appearance: no apparent distress Respiratory: lungs clear, no respiratory distress Cardiovascular: regular rate, rhythm Neurologic/Psychiatric: alert, oriented x 3 Skin Characteristics: other (callahan/plantar rash - unchanged) Assessment/Plan Resident Physician Supervision Note: I independently interviewed and examined the patient and verified the hurst history and physical, reviewed labs and image studies, discussed the case with the resident Dr. Nuñez and agree with the findings and care plan.
--- NOTE | 2017-10-16 08:41 | HEME/ONC PROGRESS NOTE ---
DATE: 10/16/2017 DIAGNOSES: 1. Fever of unknown origin. 2. Pancytopenia. 3. Microcytic anemia by history. SUBJECTIVE: Alicia is a pleasant 42-year-old Urdu female seen and examined at bedside this morning. Because she does not speak Brazilian difficult to obtain pertinent clinical information. However, I did speak with the resident involved in her care. Indeed one of her blood cultures is positive for coag negative Staphylococcus. She was empirically placed on vancomycin and identification and sensitivities are pending. Review of her most recent peripheral count will improvement in both her WBCs and platelets. Hemoglobin did falter modestly currently at 6.8. Primary service is recommending transfusion of 2 units packed RBCs. Await reticulocyte count. PHYSICAL EXAMINATION: GENERAL: She appears in no acute distress. VITAL SIGNS: Temperature is 36.9, pulse 88, respirations 22, blood pressure 105/68. SKIN: Hyperpigmented papules, a few which are excoriated. No active hemorrhage involving her fingers and soles. HEENT: Oral mucosa without buccal lesions or ulcerations. NECK: Supple. HEART: Regular rate and rhythm. LUNGS: Clear to auscultation bilaterally. ABDOMEN: Soft, nontender, nondistended. EXTREMITIES: No clubbing, cyanosis or edema. NEUROLOGIC: Grossly intact. LABORATORY DATA: WBC count 2470, hemoglobin 6.8, platelet count 135,000. Serum iron 22, TIBC 358, ferritin 28. Sodium 138, potassium 4.2, chloride 108, carbon dioxide 21, BUN 5, creatinine 0.65. IMPRESSION: 1. Coag negative staph bacteremia. 2. Microcytic anemia (iron deficiency). 3. Fever of unknown origin. 4. Pancytopenia. PLAN: Alicia was examined at bedside today. She seems to be feeling better. Fevers have for the most part abated over the past 24 hours. Blood cultures confirmed coagulase-negative Staphylococcus and the patient has been empirically placed on vancomycin. Agree with type and cross and transfusion 2 units. Recommended pretreatment with the resident, particularly Benadryl 25 mg p.o. and Tylenol 650 mg p.o. 30 minutes prior to transfusion. Her peripheral blood counts do seem to be on the upswing and will continue to observe her on a daily basis. Await reticulocyte count. Based on the presumed hematopoietic recovery, I suspect myelosuppression secondary to bacteremia. Additionally, review of her iron studies are certainly consistent with deficient state. The patient had reacted to an iron product in the past. I suspect most likely she received iron dextran. Perhaps once she's more stable, may consider iron sucrose 300 mg intravenous dose to be administered may be in a day or 2 depending on her progress. I will continue to follow her periodically during her stay. Thank you very much for allowing me to participate in her care. ZANE
[2017-10-16] MEDS: POTASSIUM CHLORIDE 20 MEQ TABCR PO SCH (09:54)
[2017-10-16] MEDS ORDERED: ACETAMINOPHEN 325 MG TAB PO ONE (10:00)
[2017-10-16] MEDS: PANTOprazole INJ 40 MG in SYRINGE 0 ML IV SCH (10:33)
--- NOTE | 2017-10-16 12:28 | Infectious Disease Progress Nt ---
Progress Note Date of Service Oct 16, 2017. Subjective Pt evaluation today including: conversation w/ patient, conversation w/ family , physical exam, chart review, lab review, review of studies, conversation w/ strategy consultant, review of inpatient medication list patient feeling somewhat better today. Blood culture has grown coagulase negative Staph, likely a contaminant. Temperature normal thus far today. All Other Systems: Reviewed and Negative Medications Current Inpatient Medications Medications (Trade) Dose Ordered Sig/Joby Route Start Time Stop Time Status Last Admin Dose Admin Acetaminophen (Tylenol Tab) 650 mg Q4H PRN PO 10/14/17 18:15 11/13/17 18:14 10/16/17 03:44 650 MG Al Hydrox/Mg Hydrox/Simethicone (Maalox Max Susp) 15 ml Q4H PRN PO 10/14/17 18:15 11/13/17 18:14 Magnesium Hydroxide (Milk Of Magnesia Susp) 30 ml Q12H PRN PO 10/14/17 18:15 11/13/17 18:14 Ondansetron HCl (Zofran Inj) 4 mg Q6H PRN IV 10/14/17 18:15 11/13/17 18:14 10/16/17 03:27 4 MG Polyethylene (Miralax Powder Packet) 17 gm DAILY PRN PO 10/14/17 18:15 11/13/17 18:14 Lactated Ringer's 1,000 ml @ 80 mls/hr [id number] IV 10/15/17 00:45 11/14/17 00:44 10/16/17 09:49 150 MLS/HR Vancomycin HCl 1000 mg/Sodium Chloride 270 ml @ 125 mls/hr Q10H IV 10/15/17 20:00 10/17/17 19:59 10/16/17 05:42 125 MLS/HR Cefepime HCl 2000 mg/Syringe 20 ml @ 5 mls/min Q8H IV 10/15/17 10:00 10/17/17 09:59 10/16/17 10:34 5 MLS/MIN Pantoprazole Sodium 40 mg/ Syringe 10 ml @ 5 mls/min DAILY@11 IV 10/16/17 11:00 11/15/17 10:59 10/16/17 10:33 5 MLS/MIN Ioversol (Optiray 320) 100 ml UD PRN IV 10/15/17 13:45 10/19/17 13:44 Objective Vital Signs Date Time Temp Pulse Resp B/P (MAP) Pulse Ox O2 Delivery O2 Flow Rate FiO2 10/16/17 12:00 36.9 90 18 121/77 100 10/16/17 11:45 37.0 85 20 115/70 (85) 100 Room Air 10/16/17 11:38 36.9 97 18 121/76 (91) 97 Room Air 10/16/17 11:12 Room Air 10/16/17 07:55 Room Air 10/16/17 07:18 36.9 88 22 105/68 (80) 99 Room Air 10/16/17 07:13 37.5 87 16 104/65 (78) 99 Room Air 10/16/17 04:53 37.5 10/16/17 04:00 Room Air 10/16/17 03:44 38.9 10/16/17 03:08 105 18 117/70 (86) 95 Room Air 10/16/17 00:00 Room Air 10/15/17 23:32 37.6 99 18 100/64 (76) 93 Room Air 10/15/17 20:00 Room Air 10/15/17 19:32 37.1 99 16 118/74 (89) 98 Room Air 10/15/17 19:00 37.7 10/15/17 16:00 Room Air 10/15/17 14:10 98 Room Air Physical Exam General Appearance: WD/WN, no apparent distress Eyes: normal inspection, EOMI, sclerae normal ENT: normal ENT inspection, pharynx normal Neck: supple, no adenopathy, + pertinent finding ( Thyromegaly with deviated trachea) Respiratory/Chest: chest non-tender, lungs clear, normal breath sounds, no respiratory distress Cardiovascular: regular rate, rhythm, no gallop, no murmur Abdomen: normal bowel sounds, non tender, soft, no organomegaly Extremities: non-tender, no calf tenderness Neurologic/Psychiatric: alert, oriented x 3 Skin: normal color, + pertinent finding ( upon and soles rash unchanged) Lymphatic: no adenopathy Laboratory Results RUN DATE: 10/16/17 [facility] LAB PAGE 1 RUN TIME: 1200 Specimen Inquiry PATIENT: ARCHANA GUERRA LOC: [facility] # : [id number] AGE/SX: 42/F ROOM: [facility] REG : 10/14/[address]: Ana Knox M.D. : 1975 BED: 1 DIS : STATUS: ADM IN TLOC: SPEC #: [id number] ANA: 10/14/17 STATUS: COMP REQ #: [id number] RECD: 10/14/[address]: Kenyetta Oakley MD SOURCE: BLOOD ENTR: 10/14/[address]: Ivon Andrade, Assigned SPDESC: Naveen Quijano MD ORDERED: BLOOD CULTURE Procedure Result Verified Site BLD CULT Final 10/16/17-1200 Organism 1 COAG NEG STAPOmar NOT JOHNATHAN SENS NO SENSITIVITY TO FOLLOW Phoned Positive Blood Culture Gram Stain Report to ZEESHAN ALVAREZ on 10/15/17 At 1631 By BRANDY. Results were verbalized back to BRANDY. Last 24 Hours Test 10/16/17 00:00 10/16/17 06:00 Stool Occult Blood NEGATIVE White Blood Count 2.47 K/uL Red Blood Count 2.92 M/uL Hemoglobin 6.8 g/dL Hematocrit 22.8 % Mean Corpuscular Volume 78.1 fL Mean Corpuscular Hemoglobin 23.3 pg Mean Corpuscular Hemoglobin Concent 29.8 g/dl Platelet Count 135 K/uL Mean Platelet Volume 9.1 fL Neutrophils (%) (Auto) 57.6 % Lymphocytes (%) (Auto) 26.3 % Monocytes (%) (Auto) 10.5 % Eosinophils (%) (Auto) 3.6 % Basophils (%) (Auto) 1.6 % Neutrophils # (Auto) 1.42 K/uL Lymphocytes # (Auto) 0.65 K/uL Monocytes # (Auto) 0.26 K/uL Eosinophils # (Auto) 0.09 K/uL Basophils # (Auto) 0.04 K/uL RDW Standard Deviation 60.5 fL RDW Coefficient of Variation 21.1 % Immature Granulocyte % (Auto) 0.4 % Immature Granulocyte # (Auto) 0.01 K/uL Hypochromasia PRESENT Anisocytosis PRESENT Microcytosis PRESENT Ovalocytes 1+ Absolute Reticulocyte Count 0.02 10^6/uL Percent Reticulocyte Count 0.6 % Sodium Level 138 mmol/L Potassium Level 4.2 mmol/L Chloride Level 108 mmol/L Carbon Dioxide Level 21 mmol/L Anion Gap 9.0 mmol/L Blood Urea Nitrogen 5 mg/dl Creatinine 0.65 mg/dl Est Creatinine Clear Calc Drug Dose 89.2 ml/min Estimated GFR () 126.9 Estimated GFR (Non- 109.5 BUN/Creatinine Ratio 7.4 Random Glucose 78 mg/dl Calcium Level 8.0 mg/dl Patient Name: ARCHANA GUERRA Unit Number: [id number] Dictated: 10/15/171450 Transcribed: 10/15/171450 EARLENE Printed Date/Time: [~ rep prt dt]/[~ rep prt tm] [~ rep ct labl] - [~ rep ct ivnm] [facility] Radiology [place] [address] Dictated: 10/15/171450 Transcribed: 10/15/171450 Printed Date/Time: [~ rep prt dt]/[~ rep prt tm] [~ rep ct labl] - [~ rep ct ivnm] [~ rep ct add3]] CT OF THE CHEST WITH IV CONTRAST CLINICAL HISTORY: Tracheal deviation on chest radiograph with possible neck mass. Fever. COMPARISON STUDY: Chest radiograph October 14, 2017. TECHNIQUE: Following IV administration of 93 mL of Optiray-320, helical axial images of the chest were obtained. Sagittal and coronal reconstructions were viewed as well as maximal intensity projections on an independent 3-D workstation. A dose lowering technique was utilized adhering to the principles of ALARA. CT DOSE: 172.32 mGycm FINDINGS: Moderate cardiomegaly is noted. There is trace pericardial effusion. There are small bilateral pleural effusions. No pneumothorax is present. Lower lobe opacities suggest atelectasis. There is no consolidation to suggest pneumonia. Note is made of marked asymmetric heterogeneous enlargement of the left thyroid lobe which measures 5.5 x 5.2 cm and accounts for tracheal deviation on chest radiograph. There is minimal peripheral calcification. There are moderately enlarged bilateral axillary lymph nodes. Index left axillary lymph node measures 1.6 x 1.5 cm and an index right axillary left node measures 1.8 x 1.3 cm. No suspicious osseous lesions are noted. Mild splenomegaly is noted. Upper abdomen is otherwise unremarkable. IMPRESSION: 1. Marked asymmetric heterogeneous enlargement of the left thyroid lobe which accounts for tracheal deviation shown on prior chest radiograph. A thyroid goiter is strongly favored however follow-up ultrasound guided fine needle aspiration is recommended to exclude less likely etiologies. 2. Moderate bilateral axillary lymphadenopathy and mild splenomegaly. The findings are nonspecific and could reflect a lymphoproliferative process such as lymphoma. However, an infectious etiology such as mononucleosis could appear similar. 3. Small bilateral pleural effusions. 4. Mild to moderate cardiomegaly with trace pericardial effusion. Electronically signed by: Zack Gross M.D. 10/15/2017 3:04 PM Dictated Date/Time: 10/15/2017 2:51 PM The status of this report is Signed. Draft = Not yet reviewed or approved by Radiologist. Signed = Reviewed and approved by Radiologist. <AttendingPhy>Ana Knox M.D.</AttendingPhy> <FamilyPhy>No Doctor, Assigned </FamilyPhy> <PrimaryPhy>No Doctor, Assigned</PrimaryPhy> <UnitNumber>[id number] </UnitNumber> <VisitNumber>[id number]</VisitNumber> <PatientName>ARCHANA GUERRA< /PatientName> <DateOfBirth>1975</DateOfBirth> <Location>[facility]</Location> < ServiceDate></ServiceDate> <MNE>ESINDI</MNE> <OrderingPhy>Herman Nuñez M.D.</OrderingPhy> <OrderingPhyMNE>f rep ord dr monroe</OrderingPhyMNE> < DictatingPhyMNE>f rep dict dr monroe</DictatingPhyMNE> <CCListMNE>f rep ct fer</ CCListMNE> <AdmittingPhyMNE>f pt admit dr monroe</AdmittingPhyMNE> <AttendingPhyMNE >f pt attend dr monroe</AttendingPhyMNE> <ConsultingPhyMNE>f pt consult dr monroe</ConsultingPhyMNE> <FamilyPhyMNE>f pt fam dr monroe</FamilyPhyMNE> <OtherPhyMNE>f pt other dr monroe</OtherPhyMNE> < PrimaryPhyMNE>f pt prim care dr monroe</PrimaryPhyMNE> <ReferringPhyMNE>f pt referring dr mne</ReferringPhyMNE> Assessment and Plan 42-year-old female with history of chronic anemia, now with progressive pancytopenia as well as 3 month history of rash involving the palms and soles as well as her face. CT scan shows adenopathy and splenomegaly. Also with market increase in IgG level. Would obtain immunoelectrophoresis, CMV and EBV studies ordered, Positive blood culture likely represents contaminant, await follow-up cultures. will discuss with all involved.
--- NOTE | 2017-10-16 15:56 | ECHOCARDIOGRAM REPORT ---
*NOTICE TO RECEIVING [employer] This information is strictly Confidential and protected under [place] law. [place] law prohibits you from making any further disclosure of this information unless further disclosure is expressly permitted by the written consent of the person to whom it pertains or is authorized by law. A general authorization for the release of medical or other information is not sufficient for this purpose. Hospital accepts no responsibility if the information is made available to any other person, INCLUDING THE PATIENT. Interpretation Summary * Name: ARCHANA GUERRA Study Date: 10/16/2017 09:56 AM BP: 105/68 mmHg * Patient Location: [facility]\S\N279\S\1 HR: 87 * : 1975 (M/d/yyyy) Gender: Female Height: 62 in * Age: 42 yrs Ethnicity: CA Weight: 118 lb * Ordering Physician: Herman Nuñez * Referring Physician: Cristal Thakkar . 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 * Normal chamber dimensions. * Trace aortic regurgitation. * Trace pulmonic regurgitation. * Mild mitral and tricuspid regurgitation. * Normal estimated right ventricular systolic pressure. * Normal estimated central venous pressure. * Possible very small basal posterior pericardial effusion. * There is no evidence of a mass or vegetation. This does not rule out endocarditis. Procedure Details * A complete two-dimensional transthoracic echocardiogram was performed (2D, M-mode, Doppler and color flow Doppler). Left Ventricle * The left ventricle is normal in size. * There is normal left ventricular wall thickness. * Left ventricular systolic function is normal. * Ejection Fraction = 55-60%. * The left ventricular wall motion is normal. Right Ventricle * The right ventricle is normal in size and function. Atria * The left atrial size is normal. * Right atrial size is normal. * No ASD detected; PFO is not assessed. Mitral Valve * The mitral valve is normal. * There is no mitral valve stenosis. * There is mild mitral regurgitation. Tricuspid Valve * The tricuspid valve is normal. * There is no tricuspid stenosis. * There is mild tricuspid regurgitation. * Right ventricular systolic pressure is normal. Aortic Valve * The aortic valve is trileaflet. * The aortic valve opens well. * Aortic stenosis is absent. * Trace aortic regurgitation. Pulmonic Valve * The pulmonic valve is not well seen, but is grossly normal. * There is no pulmonic valvular stenosis. * Trace pulmonic valvular regurgitation. Great Vessels * The aortic root is normal size. Pericardium/Pleural * Possible very small basal posterior pericardial effusion. * There are no echocardiographic indications of cardiac tamponade. Great Vessels * Normal inferior vena cava diameter and respiratory variation suggests normal central venous pressure. MMode 2D Measurements and Calculations IVSd 0.96 cm IVSs 1.4 cm LVIDd 4.8 cm LVIDs 3.5 cm LVPWd 1.1 cm LVPWs 1.3 cm IVS/LVPW 0.89 FS 28.1 % EDV(Teich) 107.7 ml ESV(Teich) 49.2 ml EF(Teich) 54.3 % EDV(cubed) 110.8 ml ESV(cubed) 41.2 ml EF(cubed) 62.9 % % IVS thick 47.9 % % LVPW thick 21.4 % LV mass(C)d 175.0 grams LV mass(C)dI 114.6 grams/m\S\2 LV mass(C)s 163.0 grams LV mass(C)sI 106.7 grams/m\S\2 SV(Teich) 58.5 ml SI(Teich) 38.3 ml/m\S\2 SV(cubed) 69.7 ml SI(cubed) 45.6 ml/m\S\2 Ao root diam 3.6 cm Ao root area 10.2 cm\S\2 LA dimension 3.0 cm LA/Ao 0.83 LVAd ap4 32.4 cm\S\2 LVLd ap4 7.9 cm EDV(MOD-sp4) 107.0 ml EDV(sp4-el) 112.7 ml LVAs ap4 20.2 cm\S\2 LVLs ap4 6.6 cm ESV(MOD-sp4) 51.9 ml ESV(sp4-el) 52.8 ml EF(MOD-sp4) 51.4 % EF(sp4-el) 53.2 % LVAd ap2 32.4 cm\S\2 LVLd ap2 7.6 cm EDV(MOD-sp2) 116.0 ml EDV(sp2-el) 117.1 ml LVAs ap2 18.4 cm\S\2 LVLs ap2 6.3 cm ESV(MOD-sp2) 43.7 ml ESV(sp2-el) 45.3 ml EF(MOD-sp2) 62.3 % EF(sp2-el) 61.3 % LVLd %diff -3.54 % EDV(MOD-bp) 113.2 ml LVLs %diff -3.99 % ESV(MOD-bp) 48.9 ml EF(MOD-bp) 56.8 % SV(MOD-sp4) 55.0 ml SI(MOD-sp4) 36.0 ml/m\S\2 SV(MOD-sp2) 72.3 ml SI(MOD-sp2) 47.3 ml/m\S\2 SV(MOD-bp) 64.3 ml SI(MOD-bp) 42.1 ml/m\S\2 SV(sp4-el) 59.9 ml SI(sp4-el) 39.2 ml/m\S\2 SV(sp2-el) 71.8 ml SI(sp2-el) 47.0 ml/m\S\2 Doppler Measurements and Calculations MV E max margret 96.0 cm/sec MV A max margret 62.0 cm/sec MV E/A 1.5 MV P1/2t max margret 108.7 cm/sec MV P1/2t 93.7 msec MVA(P1/2t) 2.3 cm\S\2 MV dec slope 339.8 cm/sec\S\2 MV dec time 0.24 sec Ao V2 max 177.2 cm/sec Ao max PG 12.6 mmHg Ao max PG (full) 8.2 mmHg AI max margret 466.1 cm/sec AI max PG 86.9 mmHg AI dec slope 219.0 cm/sec\S\2 AI P1/2t 623.5 msec LV V1 max PG 4.3 mmHg LV V1 max 104.1 cm/sec MR max margret 565.6 cm/sec MR max PG 128.0 mmHg PA V2 max 88.9 cm/sec PA max PG 3.2 mmHg PI max margret 164.8 cm/sec PI max PG 10.9 mmHg PI dec slope 308.2 cm/sec\S\2 PI P1/2t 156.6 msec TR max margret 247.0 cm/sec
[2017-10-16 17:49] LABS: HEMATOCRIT 31.8 % (37-47); MEAN CELL VOLUME 80.7 fL (80-100); MEAN CORPUSCULAR HEMOGLOBIN 24.6 pg (25-34); MEAN CORPUSCULAR HGB CONC 30.5 g/dl (32-36); MEAN PLATELET VOLUME 9.8 fL (7.4-10.4); PLATELET COUNT 120 K/uL (130-400); RED BLOOD COUNT 3.94 M/uL (4.2-5.4); WHITE BLOOD COUNT 3.07 K/uL (4.8-10.8)
[2017-10-16 17:50] LABS: BASO % 0.3 %; BASO ABS # 0.01 K/uL (0-0.2); BUN/CREATININE RATIO 9.5 (10-20); CALCIUM 8.1 mg/dl (8.5-10.1); COMPLETE YES; CREATININE 0.7 mg/dl (0.60-1.20); ECHINOCYTES 1+; EOS % 3.3 %; IG% 0.3 %; LYMPH % 24.4 %; LYMPH ABS # 0.75 K/uL (1.2-3.4); MONO % 7.2 %; NEUT % 64.5 %; OVALOCYTES 1+; PLT ESTIMATE DECREASED; POTASSIUM 4.1 mmol/L (3.5-5.1)
[2017-10-17] MEDS: ACETAMINOPHEN 325 MG TAB PO PRN (00:15)
[2017-10-17] MEDS ORDERED: VANCOMYCIN TROUGH ONE (01:30)
[2017-10-17] MEDS: CEFEPIME IV 2,000 MG in SYRINGE 7.5 ML IV SCH ×2 (02:11→21:19)
[2017-10-17] MEDS: VANCOMYCIN INJ 1,000 MG in SODIUM CHLORIDE 0.9% 250ML 250 ML IV SCH ×3 (02:11→21:19)
[2017-10-17 03:41] VITALS: BP 120/74; PULSE 70; TEMP 36.9; O2SAT 95
[2017-10-17 07:01] LABS: HEMATOCRIT 31.7 % (37-47); MEAN CELL VOLUME 80.5 fL (80-100); MEAN CORPUSCULAR HEMOGLOBIN 24.1 pg (25-34); RED BLOOD COUNT 3.94 M/uL (4.2-5.4); WHITE BLOOD COUNT 3.49 K/uL (4.8-10.8)
[2017-10-17 07:17] LABS: BUN/CREATININE RATIO 12.4 (10-20); CREATININE 0.66 mg/dl (0.60-1.20); POTASSIUM 3.9 mmol/L (3.5-5.1)
[2017-10-17 07:21] LABS: MEAN PLATELET VOLUME 9.6 fL (7.4-10.4); PLATELET COUNT 119 K/uL (130-400)
[2017-10-17 08:05] VITALS: BP 124/80; PULSE 72; TEMP 36.5; O2SAT 98
--- NOTE | 2017-10-17 08:07 | HEME/ONC PROGRESS NOTE ---
DATE: 10/17/2017 DATE: 10/17/2017 DIAGNOSES: 1. Fever of unknown origin. 2. Coag negative staph bacteremia. 3. Microcytic anemia. 4. Pancytopenia. SUBJECTIVE: Alicia is a pleasant 42-year-old Icelandic female seen and examined at bedside again this morning. She states she is feeling a bit better. Clearly her blood counts are improving. She tolerated 2 units packed RBCs. Reticulocyte count suggests a hypoproliferative anemia. Currently on vancomycin. She offers no complaints otherwise this morning. PHYSICAL EXAMINATION: GENERAL: She is in no acute distress. VITAL SIGNS: Temperature 36.9, pulse 70, respirations 17, blood pressure 120/74. SKIN: Hyperpigmented papular rash involving her palms and soles with some improvement noted. HEAD, EYES, EARS, NOSE, AND THROAT: Oral mucosa without buccal lesions or ulcerations. NECK: Supple. HEART: Regular rate and rhythm without clicks, rubs or murmurs. LUNGS: Clear to auscultation. ABDOMEN: Soft, nontender, nondistended. EXTREMITIES: No clubbing, cyanosis or edema. NEUROLOGIC: Grossly intact. LABORATORY DATA: Sodium 137, potassium 3.9, chloride 108, carbon dioxide 23, BUN 8, creatinine 0.66. WBC count 3,490, hemoglobin 9.5, platelet count 119,000. IMPRESSION: 1. Coag negative Staphylococcus bacteremia. 2. Microcytic anemia (iron deficiency). 3. Fever of unknown origin. 4. Pancytopenia. PLAN: Alicia seems to be getting better clinically. Her blood counts are certainly going in the right direction. Reticulocyte count suggests a hypoproliferative anemia. Again, would consider giving her iron sucrose once she is medically stable. Will continue observation for now. No further intervention is indicated and would appear she is recovering spontaneously. Again, thank you very much for allowing me to participate in her care. I will effectively sign off and make arrangements for her to be seen in the office a couple weeks post discharge. If you have any further questions, feel free to reconsult our service.
[2017-10-17 08:29] LABS: ANISOCYTOSIS PRESENT; BASO % 0.6 %; BASO ABS # 0.02 K/uL (0-0.2); COMPLETE YES; EOS % 3.2 %; IG% 0.3 %; LYMPH % 22.1 %; LYMPH ABS # 0.77 K/uL (1.2-3.4); MONO % 7.7 %; NEUT % 66.1 %; OVALOCYTES 1+; SCHISTOCYTES OCCASIONAL
[2017-10-17] MEDS ORDERED: VANCOMYCIN CONSULT ACTIVE PRN (08:45)
--- NOTE | 2017-10-17 11:09 | Family Medicine Progress Note ---
Progress Note Date of Service Oct 17, 2017. Subjective Today the patient is feeling much better. She received 2 units of blood yesterday. Reports having more energy. She was also started on a regular diet and is tolerating it well, no nausea, no vomiting. Pt did have a fever of 38.1 last night. Constitutional: + fever, + chills, No sweats, No weight loss Respiratory: No cough, No sputum, No wheezing, No shortness of breath Cardiovascular: No chest pain, No orthopnea, No edema, No palpitations Abdomen: No pain, No nausea, No vomiting, No diarrhea Medications Current Inpatient Medications Medications (Trade) Dose Ordered Sig/Joby Route Start Time Stop Time Status Last Admin Dose Admin Acetaminophen (Tylenol Tab) 650 mg Q4H PRN PO 10/14/17 18:15 11/13/17 18:14 10/17/17 00:15 650 MG Al Hydrox/Mg Hydrox/Simethicone (Maalox Max Susp) 15 ml Q4H PRN PO 10/14/17 18:15 11/13/17 18:14 Magnesium Hydroxide (Milk Of Magnesia Susp) 30 ml Q12H PRN PO 10/14/17 18:15 11/13/17 18:14 Ondansetron HCl (Zofran Inj) 4 mg Q6H PRN IV 10/14/17 18:15 11/13/17 18:14 10/16/17 03:27 4 MG Polyethylene (Miralax Powder Packet) 17 gm DAILY PRN PO 10/14/17 18:15 11/13/17 18:14 Vancomycin HCl 1000 mg/Sodium Chloride 270 ml @ 125 mls/hr Q10H IV 10/15/17 20:00 10/17/17 19:59 10/17/17 02:11 125 MLS/HR Pantoprazole Sodium 40 mg/ Syringe 10 ml @ 5 mls/min DAILY@11 IV 10/16/17 11:00 11/15/17 10:59 10/16/17 10:33 5 MLS/MIN Ioversol (Optiray 320) 100 ml UD PRN IV 10/15/17 13:45 10/19/17 13:44 Vancomycin HCl (Consult) 1 ea UD PRN N/A 10/17/17 08:45 11/16/17 08:44 Objective Vital Signs Date Time Temp Pulse Resp B/P (MAP) Pulse Ox O2 Delivery O2 Flow Rate FiO2 10/17/17 08:05 36.5 72 18 124/80 (95) 98 Room Air 10/17/17 08:00 Room Air 10/17/17 04:00 Room Air 10/17/17 03:41 36.9 70 17 120/74 (89) 95 Room Air 10/17/17 00:05 Room Air 10/16/17 23:58 38.1 101 18 124/81 (95) 95 Room Air 10/16/17 20:00 Room Air 10/16/17 19:31 37.4 87 18 135/79 (97) 98 Room Air 10/16/17 16:43 37.2 85 18 124/82 98 10/16/17 16:00 Room Air 10/16/17 15:25 37.0 90 18 130/70 97 10/16/17 14:50 36.9 96 20 112/79 (90) 97 Room Air 10/16/17 14:35 37.0 94 20 106/70 (82) 96 Room Air 10/16/17 13:55 36.8 92 20 103/69 (80) 96 Room Air 10/16/17 13:00 36.6 97 18 104/69 96 10/16/17 12:42 100 Room Air 10/16/17 12:29 37.0 100 18 123/77 97 10/16/17 12:00 36.9 90 18 121/77 100 10/16/17 11:45 37.0 85 20 115/70 (85) 100 Room Air 10/16/17 11:38 36.9 97 18 121/76 (91) 97 Room Air 10/16/17 11:12 Room Air Physical Exam General Appearance: WD/WN, no apparent distress Neck: supple, + thyroid abnormalities (soft, movable, palpable mass on right of the trachea consistent with thyromegaly) Respiratory/Chest: chest non-tender, lungs clear, normal breath sounds, no respiratory distress, no accessory muscle use Cardiovascular: regular rate, rhythm, no edema, no gallop, no JVD, no murmur Abdomen: normal bowel sounds, non tender, soft, no organomegaly, no pulsatile mass Neurologic/Psychiatric: alert, normal mood/affect, oriented x 3 Skin: normal color, warm/dry, + rash (petechial rash of hands and feet ( appears to be receding) ) Laboratory Results 10/17/17 06:13 Red Blood Count 3.94, Mean Corpuscular Volume 80.5, Mean Corpuscular Hemoglobin 24.1, Mean Corpuscular Hemoglobin Concent 30.0, Mean Platelet Volume 9.6, Neutrophils (%) (Auto) 66.1, Lymphocytes (%) (Auto) 22.1, Monocytes (%) (Auto) 7.7, Eosinophils (%) (Auto) 3.2, Basophils (%) (Auto) 0.6, Neutrophils # (Auto) 2.31, Lymphocytes # (Auto) 0.77, Monocytes # (Auto) 0.27, Eosinophils # (Auto) 0.11, Basophils # (Auto) 0.02 10/17/17 06:13 Test 10/16/17 17:17 10/17/17 01:16 10/17/17 06:13 10/17/17 07:30 Platelet Estimate DECREASED Echinocytes 1+ Vancomycin Level Trough 23.0 mcg/ml (SEE COMMENT) White Blood Count 3.49 K/uL (4.8-10.8) Red Blood Count 3.94 M/uL (4.2-5.4) Hemoglobin 9.5 g/dL (12.0-16.0) Hematocrit 31.7 % (37-47) Mean Corpuscular Volume 80.5 fL (80-100) Mean Corpuscular Hemoglobin 24.1 pg (25-34) Mean Corpuscular Hemoglobin Concent 30.0 g/dl (32-36) Platelet Count 119 K/uL (130-400) Mean Platelet Volume 9.6 fL (7.4-10.4) Neutrophils (%) (Auto) 66.1 % Lymphocytes (%) (Auto) 22.1 % Monocytes (%) (Auto) 7.7 % Eosinophils (%) (Auto) 3.2 % Basophils (%) (Auto) 0.6 % Neutrophils # (Auto) 2.31 K/uL (1.4-6.5) Lymphocytes # (Auto) 0.77 K/uL (1.2-3.4) Monocytes # (Auto) 0.27 K/uL (0.11-0.59) Eosinophils # (Auto) 0.11 K/uL (0-0.5) Basophils # (Auto) 0.02 K/uL (0-0.2) RDW Standard Deviation 57.8 fL (36.4-46.3) RDW Coefficient of Variation 19.6 % (11.5-14.5) Immature Granulocyte % (Auto) 0.3 % Immature Granulocyte # (Auto) 0.01 K/uL (0.00-0.02) Anisocytosis PRESENT Ovalocytes 1+ Schistocytes OCCASIONAL Anion Gap 6.0 mmol/L (3-11) Est Creatinine Clear Calc Drug Dose 87.9 ml/min Estimated GFR () 126.3 Estimated GFR (Non- 109.0 BUN/Creatinine Ratio 12.4 (10-20) Calcium Level 8.0 mg/dl (8.5-10.1) Hepatitis B Surface Antigen NEG (NEG) Hepatitis C Antibody NEG (NEG) Assessment and Plan 42 yo woman presents with 12 days of fever, nausea, vomiting and palmar/plantar petechial rash Fever with nausea/vomiting for 10 days with underlying rash off and on for 4mths -Continue Vancomycin and Cefepime -One blood culture - with contaminate -ID consult - rickettsial titre, RPR, MANINDER-->RPR nonreactive, others pending -Hep panel pending -Lyme IgG/IgM were negative -Isabela screen is negative -CXR with no acute cardio-pul pathology -WBC improving from yesterday -ECHO demonstrated small basal pericardial effusion. No evidence of mass or vegetation (does not r/o endocarditis) -Tylenol 650 Q4 PRN for fever Rash -see above work up Neck swelling -CXR showed right sided deviation of the trachea. 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 -Ct chest with - axillary lymphadenopathy and splenomegaly -immunoelectrophoresis pending -CMV and EBV studies ordered, Microcytic Anemia -Hemoglobin electrophoresis pending -Hypochromia and anisocytosis seen -2 unit of PRBC given, pretreated with Benadryl and Tylenol -Hematology consulted; recommend iron sucrose infusions in the upcoming days Neutropenia -? sec to infection. -Hematology consult. Nausea/Vomiting -Pt now tolerating regular diet -protonix - switch to PO -IV Zofran -d/c IVF if tolerates po well DVT ppx; stockings and SCD's Reviewed: Pt Seen/Exam by Me History had fever last night tolerating regular diet Constitutional: denies: fever Respiratory: negative: short of breath Cardiovascular: denies chest pain Gastrointestinal/Abdominal: negative: abdominal pain General Appearance: no apparent distress Respiratory: lungs clear, no respiratory distress Cardiovascular: regular rate, rhythm Neurologic/Psychiatric: alert, oriented x 3 Skin Characteristics: warm/dry Assessment/Plan Resident Physician Supervision Note: I independently interviewed and examined the patient and verified the hurst history and physical, reviewed labs and image studies, discussed the case with the resident Dr. Nuñez and agree with the findings and care plan.
[2017-10-17 11:22] VITALS: BP 121/80; PULSE 89; TEMP 36.8; O2SAT 94
[2017-10-17] MEDS: PANTOprazole INJ 40 MG in SYRINGE 0 ML IV SCH (11:24)
--- NOTE | 2017-10-17 12:10 | Pharmacy Progress Note ---
Pharmacy Abx Dose Short Note Date of Service Oct 17, 2017. Assessment & Plan Assessment 42 year old female receiving vancomcyin/cefepime for empiric treatment Day # 3 of antimicrobial therapy. Plan Vancomycin * Trough level of 23 mcg/mL is supratherapeutic- however, previous dose was given 1 hour late and estimate "true" trough to be ~19 * Will continue current dose of 1000 mg q10H and get another trough prior to 0200 dose tomorrow AM, Renal function stable * Trough or random level ordered for: 10/18 @ 0130 * Duration of vancomycin/cefepime were extended per Dr. Harrington [facility] will continue to follow and will adjust dose/frequency as necessary. Thank you.
[2017-10-17 12:12] LABS: THYROID STIMULATING HORMONE 0.537 uIu/ml (0.300-4.500)
[2017-10-17] MEDS ORDERED: CEFEPIME IV 2,000 MG in SYRINGE 7.5 ML IV ONE (12:15)
[2017-10-17] MEDS ORDERED: CEFEPIME IV 2,000 MG in SYRINGE 7.5 ML IV SCH (12:15)
[2017-10-17 14:56] VITALS: BP 145/88; PULSE 81; TEMP 37.5; O2SAT 98
[2017-10-17 16:38] LABS: HCT 24.1 % (35.0-45.0); HEMOGLOBIN A2 2.2 % (1.8-3.5); HGB 7.1 g/dL (11.7-15.5); MCH 23.3 pg (27.0-33.0); RBC 3.05 Mill/uL (3.80-5.10); RDW 23.6 % (11.0-15.0)
[2017-10-17 20:02] VITALS: BP 121/76; PULSE 89; TEMP 37.3; O2SAT 95
[2017-10-17 23:50] VITALS: BP 128/72; PULSE 87; TEMP 37.3; O2SAT 96
[2017-10-18] MEDS ORDERED: VANCOMYCIN TROUGH ONE (01:30)
[2017-10-18] MEDS: CEFEPIME IV 2,000 MG in SYRINGE 7.5 ML IV SCH ×2 (04:00→13:02)
[2017-10-18 04:50] VITALS: BP 109/71; PULSE 92; TEMP 37.2; O2SAT 94
[2017-10-18 07:06] VITALS: BP 121/81; PULSE 94; TEMP 36.9; O2SAT 94
[2017-10-18 07:20] LABS: MEAN CORPUSCULAR HGB CONC 30.5 g/dl (32-36)
[2017-10-18] MEDS: VANCOMYCIN INJ 1,000 MG in SODIUM CHLORIDE 0.9% 250ML 250 ML IV SCH ×2 (07:25→17:46)
[2017-10-18 07:52] LABS: BUN/CREATININE RATIO 14.5 (10-20); CALCIUM 8.2 mg/dl (8.5-10.1); CREATININE 0.69 mg/dl (0.60-1.20); POTASSIUM 3.6 mmol/L (3.5-5.1)
[2017-10-18 07:55] LABS: HEMATOCRIT 32.5 % (37-47); MEAN CELL VOLUME 80.4 fL (80-100); MEAN CORPUSCULAR HEMOGLOBIN 24.5 pg (25-34); RED BLOOD COUNT 4.04 M/uL (4.2-5.4); WHITE BLOOD COUNT 2.87 K/uL (4.8-10.8)
[2017-10-18 08:00] VITALS: O2SAT 94
[2017-10-18 08:58] LABS: MEAN PLATELET VOLUME 9.3 fL (7.4-10.4); PLATELET COUNT 138 K/uL (130-400)
[2017-10-18 09:02] LABS: ANISOCYTOSIS PRESENT; BASO % 0.7 %; BASO ABS # 0.02 K/uL (0-0.2); COMPLETE YES; EOS % 3.5 %; IG% 0.3 %; LYMPH % 28.2 %; LYMPH ABS # 0.81 K/uL (1.2-3.4); MICROCYTOSIS PRESENT; MONO % 9.8 %; NEUT % 57.5 %; OVALOCYTES 1+; PLT ESTIMATE DECREASED
--- NOTE | 2017-10-18 10:16 | Family Medicine Progress Note ---
Progress Note Date of Service Oct 18, 2017. Subjective Pt evaluation today including: conversation w/ patient, physical exam, chart review, lab review Pt is alone today. will be by in the afternoon. Pt denies complaints today; no fever, cp, abdominal pain, vomiting or SOB. Additional Comments: negative except for above Medications Current Inpatient Medications Medications (Trade) Dose Ordered Sig/Joby Route Start Time Stop Time Status Last Admin Dose Admin Acetaminophen (Tylenol Tab) 650 mg Q4H PRN PO 10/14/17 18:15 11/13/17 18:14 10/17/17 00:15 650 MG Al Hydrox/Mg Hydrox/Simethicone (Maalox Max Susp) 15 ml Q4H PRN PO 10/14/17 18:15 11/13/17 18:14 Magnesium Hydroxide (Milk Of Magnesia Susp) 30 ml Q12H PRN PO 10/14/17 18:15 11/13/17 18:14 Ondansetron HCl (Zofran Inj) 4 mg Q6H PRN IV 10/14/17 18:15 11/13/17 18:14 10/16/17 03:27 4 MG Polyethylene (Miralax Powder Packet) 17 gm DAILY PRN PO 10/14/17 18:15 11/13/17 18:14 Vancomycin HCl 1000 mg/Sodium Chloride 270 ml @ 125 mls/hr Q10H IV 10/15/17 20:00 10/19/17 19:59 10/18/17 07:25 125 MLS/HR Pantoprazole Sodium 40 mg/ Syringe 10 ml @ 5 mls/min DAILY@11 IV 10/16/17 11:00 11/15/17 10:59 10/17/17 11:24 5 MLS/MIN Ioversol (Optiray 320) 100 ml UD PRN IV 10/15/17 13:45 10/19/17 13:44 Vancomycin HCl (Consult) 1 ea UD PRN N/A 10/17/17 08:45 11/16/17 08:44 Cefepime HCl 2000 mg/Syringe 20 ml @ 5 mls/min Q8H IV 10/17/17 20:00 10/19/17 19:59 10/18/17 04:00 5 MLS/MIN Objective Vital Signs Date Time Temp Pulse Resp B/P (MAP) Pulse Ox O2 Delivery O2 Flow Rate FiO2 10/18/17 08:00 94 Room Air 10/18/17 07:06 36.9 94 18 121/81 (94) 94 Room Air 10/18/17 04:50 37.2 92 16 109/71 (84) 94 Room Air 10/18/17 04:05 Room Air 10/18/17 00:05 Room Air 10/17/17 23:50 37.3 87 18 128/72 (90) 96 Room Air 10/17/17 20:05 Room Air 10/17/17 20:02 37.3 89 18 121/76 (91) 95 Room Air 10/17/17 15:45 Room Air 10/17/17 14:56 37.5 81 18 145/88 (107) 98 Room Air 10/17/17 11:22 36.8 89 18 121/80 (94) 94 Room Air 10/17/17 11:03 Room Air Physical Exam General Appearance: WD/WN, no apparent distress Neck: supple Respiratory/Chest: chest non-tender, lungs clear, normal breath sounds, no respiratory distress, no accessory muscle use Cardiovascular: regular rate, rhythm, no edema, no gallop, no JVD, no murmur Abdomen: normal bowel sounds, non tender, soft, no organomegaly, no pulsatile mass Neurologic/Psychiatric: alert, normal mood/affect, oriented x 3 Skin: normal color, warm/dry, + pertinent finding (pt has petechial rash on plantar and palmar surface of bilateral feet and hands;improving ) Laboratory Results 10/18/17 06:41 Red Blood Count 4.04, Mean Corpuscular Volume 80.4, Mean Corpuscular Hemoglobin 24.5, Mean Corpuscular Hemoglobin Concent 30.5, Mean Platelet Volume 9.3, Neutrophils (%) (Auto) 57.5, Lymphocytes (%) (Auto) 28.2, Monocytes (%) (Auto) 9.8, Eosinophils (%) (Auto) 3.5, Basophils (%) (Auto) 0.7, Neutrophils # (Auto) 1.65, Lymphocytes # (Auto) 0.81, Monocytes # (Auto) 0.28, Eosinophils # (Auto) 0.10, Basophils # (Auto) 0.02 10/18/17 06:41 Test 10/17/17 11:17 10/18/17 01:38 10/18/17 06:41 Vancomycin Level Trough 33.9 mcg/ml (SEE COMMENT) White Blood Count 2.87 K/uL (4.8-10.8) Red Blood Count 4.04 M/uL (4.2-5.4) Hemoglobin 9.9 g/dL (12.0-16.0) Hematocrit 32.5 % (37-47) Mean Corpuscular Volume 80.4 fL (80-100) Mean Corpuscular Hemoglobin 24.5 pg (25-34) Mean Corpuscular Hemoglobin Concent 30.5 g/dl (32-36) Platelet Count 138 K/uL (130-400) Mean Platelet Volume 9.3 fL (7.4-10.4) Neutrophils (%) (Auto) 57.5 % Lymphocytes (%) (Auto) 28.2 % Monocytes (%) (Auto) 9.8 % Eosinophils (%) (Auto) 3.5 % Basophils (%) (Auto) 0.7 % Neutrophils # (Auto) 1.65 K/uL (1.4-6.5) Lymphocytes # (Auto) 0.81 K/uL (1.2-3.4) Monocytes # (Auto) 0.28 K/uL (0.11-0.59) Eosinophils # (Auto) 0.10 K/uL (0-0.5) Basophils # (Auto) 0.02 K/uL (0-0.2) RDW Standard Deviation 59.0 fL (36.4-46.3) RDW Coefficient of Variation 20.1 % (11.5-14.5) Immature Granulocyte % (Auto) 0.3 % Immature Granulocyte # (Auto) 0.01 K/uL (0.00-0.02) Platelet Estimate DECREASED Anisocytosis PRESENT Microcytosis PRESENT Ovalocytes 1+ Anion Gap 8.0 mmol/L (3-11) Est Creatinine Clear Calc Drug Dose 84.0 ml/min Estimated GFR () 124.4 Estimated GFR (Non- 107.4 BUN/Creatinine Ratio 14.5 (10-20) Calcium Level 8.2 mg/dl (8.5-10.1) Assessment and Plan 42 yo woman presents with 12 days of fever, nausea, vomiting and palmar/plantar petechial rash Fever with nausea/vomiting for 10 days with underlying rash off and on for 4mths -Continue Vancomycin and Cefepime -One blood culture - with contaminate -ID consult - RPR,-->RPR nonreactive -Parvo, Q fever, Typhus pending -Hep panel nonreactive -MANINDER pending -Lyme IgG/IgM were negative -Barber screen is negative -CXR with no acute cardio-pul pathology -ECHO demonstrated small basal pericardial effusion. No evidence of mass or vegetation (does not r/o endocarditis) -Tylenol 650 Q4 PRN for fever Rash -see above work up Neck swelling -CXR showed right sided deviation of the trachea. 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 -Ct chest with - axillary lymphadenopathy and splenomegaly -immunoelectrophoresis--normal Hgb distribution -CMV and EBV studies ordered, Microcytic Anemia -Hemoglobin electrophoresis pending -Hypochromia and anisocytosis seen -2 unit of PRBC given, pretreated with Benadryl and Tylenol -Hematology consulted; recommend iron sucrose infusions in the upcoming days Neutropenia -? sec to infection. -Hematology consult. Nausea/Vomiting -Pt now tolerating regular diet -protonix - switch to PO -IV Zofran -d/c IVF if tolerates po well DVT ppx; stockings and SCD's
[2017-10-18] MEDS: PANTOprazole INJ 40 MG in SYRINGE 0 ML IV SCH (10:26)
[2017-10-18 11:37] VITALS: BP 120/79; PULSE 91; TEMP 36.7; O2SAT 94
[2017-10-18 15:01] VITALS: BP 123/82; PULSE 77; TEMP 37; O2SAT 91
--- NOTE | 2017-10-18 15:13 | Discharge Instructions ---
Discharge Instructions Date of Service Oct 18, 2017. Admission Reason for Admission: Dehydration Discharge Discharge Diagnosis / Problem: Fever of unknown origin Discharge Goals Goal(s): Decrease discomfort, Diagnostic testing Activity Recommendations Activity Limitations: resume your previous activity . Instructions / Follow-Up Instructions / Follow-Up Mrs. Velásquez, Martin came to the emergency room after experiencing fever and vomiting for 10 days. During your hospital stay, we treated you for a suspected infection with antibiotics, we gave you IV fluids for dehydration and gave you 2 blood transfusions for decreased Hemoglobin levels. At this current time, you are stable and you general condition has improved; you are no longer vomiting and you have not had fevers for a couple of days. While you have been in the hospital, we have ran a number of test to investigate infectious causes of your symptoms. So far we have not been able to pinpoint a cause. We are still waiting for a number of test to return. We would like you to follow up very closely with your primary care doctor for the rest of the results. While we have stabilized your symptoms, there is still more that needs to be done to understand the cause of your symptoms. Current Hospital Diet Patient's current hospital diet: Regular Diet Discharge Diet Recommended Diet: Regular Diet Pending Studies Studies pending at discharge: yes List of pending studies: Parvo IgG/IgM Qfever IgG/IgM Rikettsia IgG/IgM Typhus fever IgG/IgM Protein elctrophoresis Globin panel MANINDER Medical Emergencies . Who to Call and When: Medical Emergencies: If at any time you feel your situation is an emergency, please call 911 immediately. . Non-Emergent Contact Non-Emergency issues call your: Primary Care Provider . . "Provider Documentation" section prepared by Herman Nuñez. . VTE Core Measure Inpt VTE Proph given/why not?: T.[email or web address]. Stockings, SCD's, Contraindicated
[2017-10-18 15:33] VITALS: BP 123/82; PULSE 77; TEMP 37; O2SAT 91
--- NOTE | 2017-10-18 15:59 | Discharge Summary ---
Discharge Summary Date of Service Oct 18, 2017. (Herman Nuñez M.D.) Discharge Summary Admission Date: Oct 14, 2017 at 17:22 Discharge Date: Oct 18, 2017 Discharge Disposition: Home Principal Diagnosis: sepsis based on SIRS criteria Problems/Secondary Diagnoses: dehydration, anemia (Herman Nuñez M.D.) Medication Reconciliation Continued Medications: Ferrous Sulfate ( Ferrous Sulfate) 325 Mg Tab 1 TAB PO DAILY for 30 Days, #30 TAB 3 Refills Ondasetron Odt (Zofran Odt) 4 Mg Tab 4 MG SL Q4 for Nausea, #20 TABS Senna (Senokot) 8.6 Mg Tab 1 TAB PO DAILY PRN for Constipation, TAB Discontinued Medications: Nitrofurantoin Monohyd Macro (Macrobid) 100 Mg Cap 100 MG PO BID, #20 CAP Discharge Exam Review of Systems: Constitutional: No fever, No chills, No sweats Respiratory: No cough, No sputum, No wheezing, No shortness of breath Cardiovascular: No chest pain, No edema, No palpitations Abdomen: No pain, No nausea, No vomiting, No diarrhea Physical Exam: General Appearance: WD/WN, no apparent distress Respiratory/Chest: chest non-tender, lungs clear, normal breath sounds, no respiratory distress, no accessory muscle use Cardiovascular: regular rate, rhythm, no edema, no gallop, no JVD, no murmur , normal peripheral pulses Abdomen / GI: normal bowel sounds, non tender, soft, no organomegaly, no pulsatile mass Neurologic/Psychiatric: alert, normal mood/affect, oriented x 3 Skin: normal color, warm/dry, + rash (healing petechia rash on palmar/ plantar surface or hands and feet) (Herman Nuñez M.D.) Review of Systems: Constitutional: No fever Respiratory: No shortness of breath Cardiovascular: No chest pain Abdomen: No pain, No nausea Physical Exam: General Appearance: no apparent distress Respiratory/Chest: lungs clear, no respiratory distress Cardiovascular: regular rate, rhythm Abdomen / GI: normal bowel sounds, non tender, soft Extremities: + pertinent finding (rash still present on palm and feet) Neurologic/Psychiatric: alert, oriented x 3 Skin: warm/dry (Ana Knox M.D.) Hospital Course 42 [place] woman comes to [facility] with 10 days of fever, vomiting and petechial rash on her hands and feet. Pt met SIRS criteria and was admitted with tachycardia, low WBC and fever. Pt CBC showed anemia, neutropenia and borderline low platelets. Throughout patients hospital course, treatment included empiric broad spectrum antibiotics for potential infectious causes, blood products for anemia and fluids for dehydration. Her clinical condition improved throughout the first day of treatment. Further investigations addressed the following differential; infectious, autoimmune, hemolytic, vasculitic cause of her symptoms. Hematology and infectious disease were both consulted. Infectious work up Blood and urine cultures were negative and CXR did not show signs of pneumonia, nor did patient have symptoms of pneumonia. TTE ECHO did not show signs of vegetations, but it did show a small pericardial effusion. A long list of infectious test were order; including lyme, anaplasmosis, hep panel, parvo, q fever, rickettsia, typhus, ebv, cmv. All were negative at discharge, but some test are still pending (see chart for results). Hematologic work up Additional test were ordered to access anemia; iron studies and peripheral smear. Iron studies and peripheral smear yielded a picture consistent with microcytic anemia; low iron and hypochromatic cells. In addition, protein electrophoresis and hemoglobinopathy studies were ordered. Some of these test are still pending, but thus far, they are not consistent with a thalassemia. Oncologic concerns Of importance, the patient needs a close follow up for thyromegaly found on physical exam and CT scan of the chest. CT of the chest also showed axillary lymphadenopathy and enlarged spleen. In the picture of petechial rash, neutropenia and anemia, lymphoproliferative disease cannot be excluded. Pt had a normal TSH, T4 and low T3. Cardio She was also had periodic runs of sinus tachycardia throughout the day. At discharge, she had stable heart rate with ambulation. While TTE did not show vegetations, endocarditis cannot be ruled out. Patient was discharged with instructions to follow closely with PCP. Total Time Spent: Less than 30 minutes This includes examination of the patient, discharge planning, medication reconciliation, and communication with other providers. (Herman Nuñez M.D.) Resident Physician Supervision Note: I independently interviewed and examined the patient and verified the hurst history and physical, reviewed labs and image studies, discussed the case with the resident Dr. Nuñez and agree with the findings and care plan. Total Time Spent: Greater than 30 minutes (Ana Knox M.D.) Discharge Instructions Please refer to the electronic Patient Visit Report (Discharge Instructions) for additional information. (Herman Nuñez M.D.) Follow-Up [facility] (Herman Nuñez M.D.) Additional Copies To Deni Lino D.O.; Cristal Thakkar ., CITY MANAGER
[2017-10-19 02:36] LABS: PARVOVIRUS IgG INDEX 0.5 (<0.9); PARVOVIRUS IgM INDEX 0.6 (<0.9); R. TYPHI IgG AB Not Detected (Not Detected); R. TYPHI IgM AB Not Detected (Not Detected); RMSF IgM AB Not Detected (Not Detected)
[2017-10-20 17:15] LABS: ALBUMIN 3.4 G/DL (3.8-4.8); GAMMA GLOBULIN 2.2 G/DL (0.8-1.7); TOTAL PROTEIN 7.3 G/DL (6.2-8.3)
[2017-10-21 17:30] LABS: TSI <89 % baseline (<140)
== END 2017-10-18 17:40 | disposition home or self-care (01) | DRG 872 ==
LOC: C.MED 17:22
PROVIDERS: ADMIT Internal Medicine; ATTEND Family Medicine
DX: A41.9 Sepsis, unspecified organism (principal); D61.818 Other pancytopenia; E86.0 Dehydration; D50.9 Iron deficiency anemia, unspecified; R21 Rash and other nonspecific skin eruption; D70.9 Neutropenia, unspecified; D89.2 Hypergammaglobulinemia, unspecified; R11.2 Nausea with vomiting, unspecified; E01.0 Iodine-deficiency related diffuse (endemic) goiter; R59.0 Localized enlarged lymph nodes; R16.1 Splenomegaly, not elsewhere classified

== ENCOUNTER → 2017-11-03 | Outpatient (CLI) | payer OTHER ==
[~2017-11-03] MED LIST changes: -NITR1CAP16 PO
[2017-11-03 14:13] LABS: HEMATOCRIT 34.2 % (37-47); MEAN CORPUSCULAR HEMOGLOBIN 25.4 pg (25-34); RED BLOOD COUNT 4.17 M/uL (4.2-5.4); WHITE BLOOD COUNT 2.78 K/uL (4.8-10.8)
[2017-11-03 14:21] LABS: URINE APPEARANCE CLOUDY (CLEAR); URINE BILIRUBIN NEG (NEG); URINE COLOR DK YELLOW; URINE EPITHELIAL CELL AUTO >30 /lpf (0-5); URINE NITRITE NEG (NEG); URINE PH 5.5 (4.5-7.5); URINE SPECIFIC GRAVITY 1.021 (1.000-1.030); UROBILINOGEN NEG (NEG)
[2017-11-03 14:23] LABS: MANUAL MICROSCOPIC REQUIRED? NO; REVIEW REQ? YES
[2017-11-03 15:00] LABS: PLATELET COUNT 86 K/uL (130-400)
[2017-11-03 15:01] LABS: BASO % 1.1 %; BASO ABS # 0.03 K/uL (0-0.2); COMPLETE YES; EOS % 1.8 %; GIANT PLATELETS 1+; IG% 0.4 %; LYMPH % 25.5 %; LYMPH ABS # 0.71 K/uL (1.2-3.4); MONO % 11.5 %; NEUT % 59.7 %; OVALOCYTES 1+; PLT ESTIMATE DECREASED
== END | disposition home or self-care (01) ==
LOC: C.LABBC 11:53
PROVIDERS: ATTEND Nurse Practitioner Adult Health
DX: R31.29 Other microscopic hematuria (principal); D64.9 Anemia, unspecified

== ENCOUNTER → 2017-11-06 | Outpatient (CLI) | payer OTHER ==
--- NOTE | 2017-11-06 10:56 | DIAGNOSTIC IMAGING REPORT ---
R HAND MIN 3 VIEWS ROUTINE, L HAND MIN 3 VIEWS ROUTINE HISTORY: 42 years-old Female MANINDER POSITIVE, MICROSCOPIC HEMATURIA, PANCYTOPENIA COMPARISON: None available TECHNIQUE: 3 views of the bilateral hands for a total of 6 images FINDINGS: LEFT: Mild first carpometacarpal osteoarthritis. No acute fracture, dislocation or evidence of erosive arthropathy. No soft tissue swelling. RIGHT: Mild first carpal metacarpal osteoarthritis. No acute fracture, dislocation or evidence of erosive arthropathy. No focal soft tissue swelling or opaque foreign body. IMPRESSION: 1. No acute fracture or dislocation. 2. No evidence of erosive arthropathy or significant degenerative changes. The above report was generated using voice recognition software. It may contain grammatical, syntax or spelling errors. Electronically signed by: Julio Esparza M.D. 11/06/2017 10:55 AM Dictated Date/Time: 11/06/2017 10:53 AM
[2017-11-06 12:22] LABS: ALT/SGPT 20 U/L (12-78); AST/SGOT 27 U/L (15-37); CREATININE 0.76 mg/dl (0.60-1.20)
[2017-11-06 12:25] LABS: ALKALINE PHOSPHATASE 62 U/L (45-117); RHEUMATOID FACTOR < 10.0 U/mL (0-15)
== END | disposition home or self-care (01) ==
LOC: C.RAD1850 10:08
PROVIDERS: ATTEND Internal Medicine Rheumatology
DX: D61.818 Other pancytopenia (principal); R31.29 Other microscopic hematuria; R76.8 Other specified abnormal immunological findings in serum; R80.9 Proteinuria, unspecified; R21 Rash and other nonspecific skin eruption; M25.50 Pain in unspecified joint

== ENCOUNTER → 2017-11-10 | Outpatient (CLI) | payer OTHER ==
--- NOTE | 2017-11-10 11:10 | DIAGNOSTIC IMAGING REPORT ---
Thyroid ultrasound CLINICAL HISTORY: Thyromegaly COMPARISON STUDY: No previous studies for comparison. FINDINGS: The right lobe of the thyroid measures 57 x 14 x 22 mm. There are multiple subcentimeter hypoechoic nodules, the largest of which measures 6 mm in diameter. The left lobe of thyroid measures 8.5 x 2.8 x 3.1 cm. There is a large complex lower pole mixed echogenicity nodule measuring 6 cm. This contains a few echogenic foci. IMPRESSION: Multinodular thyroid gland. There is a dominant 6 cm lower pole left lobe nodule, containing a few calcifications. Fine-needle aspiration biopsy is recommended. Electronically signed by: Claude Arias M.D. 11/10/2017 11:09 AM Dictated Date/Time: 11/10/2017 11:06 AM
== END | disposition home or self-care (01) ==
LOC: C.ULTRBC 09:38
PROVIDERS: ATTEND Nurse Practitioner Adult Health
DX: E04.9 Nontoxic goiter, unspecified (principal)

== ENCOUNTER → 2017-11-11 | Outpatient (CLI) | payer OTHER ==
[2017-11-11 11:26] LABS: CREATININE, URINE 25.8 mg/dl; URINE TOTAL PROTEIN 26.6 mg/dl (0-11.9)
== END | disposition home or self-care (01) ==
LOC: C.LAB1850 09:06
PROVIDERS: ATTEND Internal Medicine Nephrology
DX: R80.9 Proteinuria, unspecified (principal); R31.29 Other microscopic hematuria

== ENCOUNTER → 2017-11-17 | Outpatient (CLI) | payer OTHER ==
--- NOTE | 2017-11-17 13:41 | DIAGNOSTIC IMAGING REPORT ---
ULTRASOUND-GUIDED FINE-NEEDLE ASPIRATION OF A LEFT THYROID NODULE HISTORY: Left thyroid nodule. COMPARISON: Thyroid ultrasound 11/10/2017. PROCEDURE: Written informed consent was obtained. The neck was prepped and draped in the usual sterile fashion. 1% lidocaine was used for local anesthesia. A total of 2 passes using a 25-gauge needle were made through dominant 6.2 cm nodule within the left thyroid lobe under ultrasound guidance. Specimens were given to the on-site pathologist who determined adequate tissue for diagnosis. The patient tolerated the procedure well. There were no immediate complications. Of note, the images were incorrectly labeled as the right thyroid lobe IMPRESSION: Successful ultrasound-guided fine-needle aspiration of a left thyroid nodule. Electronically signed by: Louis Aponte M.D. 11/17/2017 1:40 PM Dictated Date/Time: 11/17/2017 1:39 PM
== END | disposition home or self-care (01) ==
LOC: C.ULTR 11:19
PROVIDERS: ATTEND Nurse Practitioner Adult Health
DX: E03.9 Hypothyroidism, unspecified (principal)

== ENCOUNTER → 2017-12-31 | Outpatient (CLI) | payer OTHER ==
[2017-12-31 16:35] LABS: BASO % 0.3 %; BASO ABS # 0.02 K/uL (0-0.2); EOS % 0.4 %; EOS ABS # 0.03 K/uL (0-0.5); HEMOGLOBIN 10.2 g/dL (12.0-16.0); IG# 0.05 K/uL (0.00-0.02); LYMPH % 17.9 %; MEAN CELL VOLUME 91.2 fL (80-100); MEAN CORPUSCULAR HEMOGLOBIN 29.1 pg (25-34); MEAN CORPUSCULAR HGB CONC 31.9 g/dl (32-36); MEAN PLATELET VOLUME 8.9 fL (7.4-10.4); MONO % 13.2 %; MONO ABS # 0.89 K/uL (0.11-0.59); NEUT % 67.5 %; NEUT ABS # 4.53 K/uL (1.4-6.5); PLATELET COUNT 235 K/uL (130-400); RED CELL DISTRIBUTION WIDTH CV 19.2 % (11.5-14.5); RED CELL DISTRIBUTION WIDTH SD 64.1 fL (36.4-46.3); WHITE BLOOD COUNT 6.72 K/uL (4.8-10.8)
[2017-12-31 17:15] LABS: ALBUMIN 3.5 gm/dl (3.4-5.0); ALT/SGPT 23 U/L (12-78); AST/SGOT 17 U/L (15-37); CREATININE 0.77 mg/dl (0.60-1.20)
[2017-12-31 17:17] LABS: ALKALINE PHOSPHATASE 92 U/L (45-117)
== END | disposition home or self-care (01) ==
LOC: C.LAB1850 15:45
PROVIDERS: ATTEND Internal Medicine Rheumatology
DX: Z51.81 Encounter for therapeutic drug level monitoring (principal); D61.818 Other pancytopenia; M32.9 Systemic lupus erythematosus, unspecified; Z79.52 Long term (current) use of systemic steroids; Z79.899 Other long term (current) drug therapy

== ENCOUNTER → 2018-01-23 | Outpatient (CLI) | payer OTHER ==
[2018-01-23 13:33] LABS: BASO % 0.6 %; BASO ABS # 0.03 K/uL (0-0.2); EOS % 0.9 %; EOS ABS # 0.05 K/uL (0-0.5); HEMATOCRIT 32.4 % (37-47); HEMOGLOBIN 10.6 g/dL (12.0-16.0); IG# 0.01 K/uL (0.00-0.02); LYMPH ABS # 1.09 K/uL (1.2-3.4); MEAN CELL VOLUME 90.3 fL (80-100); MEAN CORPUSCULAR HEMOGLOBIN 29.5 pg (25-34); MEAN CORPUSCULAR HGB CONC 32.7 g/dl (32-36); MEAN PLATELET VOLUME 9.5 fL (7.4-10.4); MONO % 16.4 %; MONO ABS # 0.89 K/uL (0.11-0.59); NEUT % 61.9 %; NEUT ABS # 3.37 K/uL (1.4-6.5); PLATELET COUNT 233 K/uL (130-400); RED CELL DISTRIBUTION WIDTH CV 16.1 % (11.5-14.5); RED CELL DISTRIBUTION WIDTH SD 53.5 fL (36.4-46.3); WHITE BLOOD COUNT 5.44 K/uL (4.8-10.8)
[2018-01-23 13:55] LABS: ALBUMIN 3.6 gm/dl (3.4-5.0); AST/SGOT 19 U/L (15-37); BLOOD UREA NITROGEN 16 mg/dl (7-18); CALCIUM 8.7 mg/dl (8.5-10.1); CARBON DIOXIDE 27 mmol/L (21-32); CREATININE 0.72 mg/dl (0.60-1.20); GLUCOSE 77 mg/dl (70-99); SODIUM 135 mmol/L (136-145)
[2018-01-23 13:57] LABS: ALKALINE PHOSPHATASE 91 U/L (45-117); ALT/SGPT 21 U/L (12-78); PHOSPHORUS 3.7 mg/dl (2.5-4.9); TOTAL PROTEIN 8.1 gm/dl (6.4-8.2)
== END | disposition home or self-care (01) ==
LOC: C.LABBC 10:45
PROVIDERS: ATTEND Internal Medicine Hematology & Oncology
DX: Z51.81 Encounter for therapeutic drug level monitoring (principal); R80.9 Proteinuria, unspecified; M32.9 Systemic lupus erythematosus, unspecified; Z79.52 Long term (current) use of systemic steroids; Z79.899 Other long term (current) drug therapy

== ENCOUNTER → 2018-03-03 | Outpatient (CLI) | payer OTHER ==
[2018-03-03 16:56] LABS: ALBUMIN 3.3 gm/dl (3.4-5.0); BLOOD UREA NITROGEN 19 mg/dl (7-18); CALCIUM 9.1 mg/dl (8.5-10.1); CARBON DIOXIDE 27 mmol/L (21-32); CREATININE 0.79 mg/dl (0.60-1.20); GLUCOSE 88 mg/dl (70-99); POTASSIUM 3.8 mmol/L (3.5-5.1); SODIUM 136 mmol/L (136-145)
== END | disposition home or self-care (01) ==
LOC: C.LABBC 13:36
PROVIDERS: ATTEND Internal Medicine Nephrology
DX: R80.9 Proteinuria, unspecified (principal)

== ENCOUNTER → 2018-04-08 | Outpatient (CLI) | payer OTHER ==
[2018-04-08 13:01] LABS: BASO % 0.2 %; BASO ABS # 0.01 K/uL (0-0.2); EOS % 0.2 %; EOS ABS # 0.01 K/uL (0-0.5); HEMATOCRIT 36.1 % (37-47); HEMOGLOBIN 11.8 g/dL (12.0-16.0); IG# 0.05 K/uL (0.00-0.02); LYMPH % 14.5 %; LYMPH ABS # 0.78 K/uL (1.2-3.4); MEAN CELL VOLUME 90.5 fL (80-100); MEAN CORPUSCULAR HEMOGLOBIN 29.6 pg (25-34); MEAN CORPUSCULAR HGB CONC 32.7 g/dl (32-36); MEAN PLATELET VOLUME 8.6 fL (7.4-10.4); MONO % 10.6 %; MONO ABS # 0.57 K/uL (0.11-0.59); NEUT % 73.6 %; NEUT ABS # 3.96 K/uL (1.4-6.5); PLATELET COUNT 259 K/uL (130-400); RED CELL DISTRIBUTION WIDTH CV 13.9 % (11.5-14.5); WHITE BLOOD COUNT 5.38 K/uL (4.8-10.8)
[2018-04-08 13:25] LABS: ALT/SGPT 23 U/L (12-78); AST/SGOT 17 U/L (15-37)
[2018-04-08 13:28] LABS: ALKALINE PHOSPHATASE 88 U/L (45-117); TOTAL PROTEIN 7.9 gm/dl (6.4-8.2)
== END | disposition home or self-care (01) ==
LOC: C.LAB1850 12:16
PROVIDERS: ATTEND Internal Medicine Rheumatology
DX: R16.1 Splenomegaly, not elsewhere classified (principal); R80.9 Proteinuria, unspecified; M32.9 Systemic lupus erythematosus, unspecified; Z79.899 Other long term (current) drug therapy; L65.9 Nonscarring hair loss, unspecified

== ENCOUNTER 2021-10-02 10:04 | Inpatient (IN) ==
[2021-10-02] MEDS ORDERED: ACETAMINOPHEN 325 MG TAB PO STA (10:32)
[2021-10-02] MEDS ORDERED: SODIUM CHLORIDE 0.9% 500 ML IV STA (10:32)
[2021-10-02] MEDS ORDERED: methylPREDNISolone 125 MG/2 ML VIAL IV STA (10:34)
--- NOTE | 2021-10-02 10:36 | Emergency Department Note ---
Impression & Plan Pulmonary embolism associated with COVID-19 Admission ED Provider Note HPI: The patient is a 46-year-old female with history of lupus, iron deficiency anemia, presents the emergency department with her at the bedside over concern for recent fever and arthralgias. Patient states that the symptoms are similar to that she has had in the past with lupus flares. Patient states that she has had some subjective fevers at home, she was recently tested for COVID-19 and this was negative last week. She denies any cough or rhinorrhea. On arrival to the ED the patient is tachycardic, she is otherwise hemodynamically stable and saturating well on room air, she is afebrile on presentation. She has not had any nausea or vomiting, denies any chest pain or shortness of breath. ROS: -MSK: Joint pain -General: Subjective fevers *10 point review systems was conducted and is otherwise negative unless stated above *Outpatient medications and allergy history reviewed PE: General: Alert, NAD HEENT: Normocephalic, atraumatic, trachea midline Eyes: Extraocular eye movement is intact, no scleral erythema Pulmonary: Clear to auscultation bilaterally, no wheezing Cardio: Tachycardic rate and regular rhythm GI: Abdomen is soft, nontender : No suprapubic tenderness MSK: No evidence of trauma or malformation of the extremities, no edema Skin: No evidence of rash Neuro: Alert, no focal deficits 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 On arrival to the emergency department the patient is tachycardic but otherwise h emodynamically stable, she is saturating well on room air on arrival. Of note, the patient speaks primarily Albanian, her at the bedside is serving as a commuter train operator. Lab work was obtained that is generally unremarkable, no significant leukocytosis, patient's renal function is intact, troponin is negative x1. Patient was noted to be persistently tachycardic here in the ED, I did also obtain COVID-19 testing given her complaint of recent fevers and arthralgias, this did return positive. CT angiography of the chest was obtained that shows evidence of multiple scattered pulmonary emboli bilaterally. Patient's tachycardia did improve with IV fluids however she did remain tachycardic in the low 110s. Given the patient's medical history and persistent tachycardia I did discuss admission with the patient and her . She remains tachycardic and she is slightly tachypneic, I think she would benefit from admission for discussion of anticoagulation strategy given her abnormal vital signs and past medical history. Case was discussed with the [facility] in the medical group [facility] and the patient was admitted to a telemetry bed in stable condition. * Diagnosis: COVID-19, acute bilateral pulmonary emboli, tachycardia * Disposition: Admission * CRITICAL CARE TIME: 36 min -Management/stabilization of markedly abnormal vital signs/tachycardia requiring IV fluid resuscitation, management of bilateral pulmonary emboli, interpretation of diagnostic studies, time spent at the bedside, discussion with other healthcare providers Adalberto Davis DO Emergency Medicine Past Med/Surg History Medical History (Updated 10/02/21 @ 14:50 by Adalberto Davis DO) Fever Iron deficiency anemia Lupus Nephrotic syndrome Rash Urinary tract infection Surgical History H/O tooth extraction Hx of section Family History Father Diabetes Other Family history unknown Denies family history of Ovarian cancer Prostate cancer Breast cancer Colorectal cancer Social History Smoking Status: Never smoker Second Hand Exposure: No; Hx Alcohol Use: No Hx Substance Use: No Preferred Language: Albanian Visual Impairment: No Limitations Hearing Ability: Normal Secondary Connector Armature Required: Yes Beliefs That Will Affect Care: None marital status: Current Living Situation: Spouse and Family current occupational status: unemployed How many Children do You have: 5 How many Children do You have Comment: 3 girls 2 boys Feels Safe at Home: Yes Childhood Exposure to Second-Hand Smoke: No during the past year weight has: decreased > 10 lbs Dental Care, Regularly: No Physical Activity Frequency: 1-2 Times per Week Seatbelt Use: always Sunscreen Use: No Allergies Allergies Allergy/AdvReac Type Severity Reaction Status Date / Time No Known Allergies Allergy Verified 10/02/21 11:56 Home Meds Home Medications Medication Instructions Recorded Confirmed ferrous sulfate 325 mg (65 mg 325 mg PO DAILY #100 tab 08/23/19 10/02/21 iron) tablet prednisone 10 mg tablet 5 mg PO DAILY #180 tab 10/06/19 10/02/21 hydroxychloroquine 200 mg tablet 200 mg PO BID 04/10/20 10/02/21 Previous Rx's Medication Instructions Recorded atorvastatin 10 mg tablet 10 mg PO DAILY #90 tab 09/14/20 losartan 100 mg tablet 100 mg PO DAILY #90 tab 12/18/20 cholecalciferol (vitamin D3) 50 50 mcg PO DAILY #90 cap 01/15/21 mcg (2,000 unit) capsule mycophenolate mofetil 500 mg tablet 1,000 mg PO BID #360 tab 08/14/21 Results & Data (ED) Vital Signs Vital Signs - 24 hr 10/02/21 10:06 10/02/21 11:16 10/02/21 11:18 Temperature 37.2 C Temperature Source Oral Pulse Rate 127 H 114 H Pulse Rate [Right Finger] 119 H Respiratory Rate 18 24 Respiratory Effort / Characteristics Non-Labored Spontaneous Respiratory Depth Normal Respiratory Pattern Regular Blood Pressure 147/98 H Blood Pressure [Right Arm] 157/99 H Blood Pressure Mean 114 Blood Pressure Mean [Right Arm] 118 Blood Pressure Position Sitting Pulse Oximetry 100 96 96 Oxygen Delivery Method Room Air Room Air Room Air Sepsis Recent Fever Within 48 Hours No Sepsis New/Unexplained Change in Mental Status N/A Sepsis Action Taken by Nursing No Action Required 10/02/21 13:00 10/02/21 14:32 Temperature Temperature Source Pulse Rate Pulse Rate [Right Finger] 89 112 H Respiratory Rate 20 28 H Respiratory Effort / Characteristics Non-Labored Respiratory Depth Normal Respiratory Pattern Blood Pressure Blood Pressure [Right Arm] 138/89 158/101 H Blood Pressure Mean Blood Pressure Mean [Right Arm] 105 120 Blood Pressure Position Pulse Oximetry 98 97 Oxygen Delivery Method Room Air Room Air Sepsis Recent Fever Within 48 Hours Sepsis New/Unexplained Change in Mental Status Sepsis Action Taken by Nursing Laboratory Data Result diagrams: 10/02/21 10:32 10/02/21 12:28 Lab Results 10/02/21 10/02/21 10/02/21 Range/Units 10:32 10:32 10:32 WBC 3.08 L (4.8-10.8) K/uL RBC 4.12 L (4.2-5.4) M/uL Hgb 12.1 (12.0-16.0) g/dL Hct 35.7 L (37-47) % MCV 86.7 (80-100) fL MCH 29.4 (25-34) pg MCHC 33.9 (32-36) g/dL RDW Std Deviation 43.0 (36.4-46.3) fL RDW Coeff of Bisi 13.4 (11.5-14.5) % Plt Count 164 (130-400) K/uL MPV 9.7 (7.4-10.4) fL Immature Gran % (Auto) 0.0 % Neut % (Auto) 62.0 % Lymph % (Auto) 24.4 % [place] % (Auto) 12.7 % Eos % (Auto) 0.6 % Baso % (Auto) 0.3 % Neut # (Auto) 1.91 (1.4-6.5) K/uL Lymph # (Auto) 0.75 L (1.2-3.4) K/uL [place] # (Auto) 0.39 (0.11-0.59) K/uL Eos # (Auto) 0.02 (0-0.5) K/uL Baso # (Auto) 0.01 (0-0.2) K/uL Immature Gran # (Auto) 0.00 (0.00-0.02) K/uL Sodium 137 (136-145) mmol/L Potassium 4.6 (3.5-5.1) mmol/L Chloride 107 (98-107) mmol/L Carbon Dioxide 23 (21-32) mmol/L Anion Gap 8.0 (3-11) BUN 17 (7-18) mg/dl Creatinine 0.74 (0.6-1.2) mg/dl Est Cr Clr Drug Dosing 78.4 ml/min Est GFR ( Amer) 112.6 ml/min Est GFR (Non-Af Amer) 97.2 ml/min BUN/Creatinine Ratio 22.4 H (10-20) Glucose 79 (70-99) mg/dl Calcium 8.8 (8.5-10.1) mg/dl Total Bilirubin 0.5 (0.2-1) mg/dl AST 22 (15-37) U/L ALT 12 (12-78) U/L Alkaline Phosphatase 62 (45-117) U/L Troponin I (0-0.045) ng/ml Total Protein 7.4 (6.4-8.2) gm/dl Albumin 2.3 L (3.4-5.0) gm/dl Globulin 5.1 H (2.5-4.0) gm/dl Albumin/Globulin Ratio 0.5 L (0.9-2) Procalcitonin < 0.05 (0-0.5) ng/ml COVID-19 Eval Order SARS-CoV-2 (PCR) (Negative) 10/02/21 10/02/21 10/02/21 Range/Units 11:40 11:40 12:28 WBC (4.8-10.8) K/uL RBC (4.2-5.4) M/uL Hgb (12.0-16.0) g/dL Hct (37-47) % MCV (80-100) fL MCH (25-34) pg MCHC (32-36) g/dL RDW Std Deviation (36.4-46.3) fL RDW Coeff of Bisi (11.5-14.5) % Plt Count (130-400) K/uL MPV (7.4-10.4) fL Immature Gran % (Auto) % Neut % (Auto) % Lymph % (Auto) % [place] % (Auto) % Eos % (Auto) % Baso % (Auto) % Neut # (Auto) (1.4-6.5) K/uL Lymph # (Auto) (1.2-3.4) K/uL [place] # (Auto) (0.11-0.59) K/uL Eos # (Auto) (0-0.5) K/uL Baso # (Auto) (0-0.2) K/uL Immature Gran # (Auto) (0.00-0.02) K/uL Sodium (136-145) mmol/L Potassium 4.4 (3.5-5.1) mmol/L Chloride (98-107) mmol/L Carbon Dioxide (21-32) mmol/L Anion Gap (3-11) BUN (7-18) mg/dl Creatinine (0.6-1.2) mg/dl Est Cr Clr Drug Dosing ml/min Est GFR ( Amer) ml/min Est GFR (Non-Af Amer) ml/min BUN/Creatinine Ratio (10-20) Glucose (70-99) mg/dl Calcium (8.5-10.1) mg/dl Total Bilirubin (0.2-1) mg/dl AST 18 (15-37) U/L ALT (12-78) U/L Alkaline Phosphatase (45-117) U/L Troponin I < 0.015 (0-0.045) ng/ml Total Protein (6.4-8.2) gm/dl Albumin (3.4-5.0) gm/dl Globulin (2.5-4.0) gm/dl Albumin/Globulin Ratio (0.9-2) Procalcitonin (0-0.5) ng/ml COVID-19 Eval Order Covid19 at [facility] SARS-CoV-2 (PCR) POSITIVE A* (Negative) Administered Medications Discontinued Medications Acetaminophen (Acetaminophen 325 Mg Tab) 650 mg PO ONE STA Stop: 10/02/21 10:33 Last Admin: 10/02/21 11:21 Dose: 650 mg Documented by: [id number] Sodium Chloride (Nss) 500 mls @ 999 mls/hr IV .Q31M STA Stop: 10/02/21 11:02 Last Infusion: 10/02/21 12:08 Dose: 0 mls/hr Documented by: [id number] Admin: 10/02/21 11:33 Dose: 999 mls/hr Documented by: [id number] Sodium Chloride (Nss 1000ml) 1,000 mls @ 999 mls/hr IV .Q1H1M ONE Stop: 10/02/21 14:16 Last Admin: 10/02/21 14:33 Dose: 999 mls/hr Documented by: [id number] Ioversol (Optiray 320 125ml) 110 ml IV ONCE ONE Stop: 10/02/21 12:43 Last Admin: 10/02/21 12:43 Dose: 110 ml Documented by: [id number] Methylprednisolone (Methylprednisolone 125 Mg/2 Ml Vial) 60 mg IV NOW STA Stop: 10/02/21 10:35 Last Admin: 10/02/21 11:27 Dose: 60 mg Documented by: [id number] Imaging Data Radiologist's Impression: Chest X-Ray 10/02/21 10:32 XR chest 1V portable HISTORY: Fever COMPARISON: Chest 10/14/2017. FINDINGS: No pneumothorax. No pleural effusions. Small hazy density within the left lung base securing the right hemidiaphragm. The right lung is clear. The cardiac silhouette remains mildly enlarged. No evidence for pulmonary edema. Stable right tracheal deviation due to the enlarged left thyroid lobe. IMPRESSION: 1. There appears to be a small hazy density within the left lung base obscuring the left hemidiaphragm. This may represent a mild pneumonia. 2. Stable mild cardiomegaly. 3. Right tracheal deviation, unchanged. This is secondary to the patient's left thyroid goiter. ACT 112: Negative or not required by law. Electronically signed by: Louis Aponte M.D. 10/02/2021 11:12 AM Chest CTA 10/02/21 12:04 CT angio chest PE protocol CLINICAL HISTORY: Fever. Evaluate for pulmonary embolus. COMPARISON STUDY: 10/15/2017 and portable chest from 10-21 CT DOSE: 230.92 mGycm TECHNIQUE: CT Angio of the chest was performed.followed by image post processing with coronal, and sagittal MIP reformats. Contrast Volume: Optiray 320, 110 ml FINDINGS: Large left lobe thyroid mass is again seen. Vasculature: Compared to the previous examination, intraluminal filling defects are seen within multiple right upper and right lower lobe pulmonary artery branches along with left upper lobe pulmonary artery branch. The findings represent the presence of pulmonary emboli. Airway: The airway is clear. No endobronchial lesion is identified. Lungs: Minimal dependent atelectasis is present at both lung bases posteriorly. The lungs are otherwise clear of acute alveolar opacities, air bronchograms or pulmonary nodules. Pleura: There is no evidence for pleural effusion. There is no evidence for pneumothorax. Mediastinum: There is no evidence for pathologic adenopathy. There is no evidence for right heart strain. The heart size is mildly enlarged and there is no evidence for aortic dilatation. There is no evidence for pericardial effusion. Upper abdomen:The adrenal glands are normal bilaterally. Osseous structures: There is no acute osseous pathology. Impression: 1. Multiple small bilateral pulmonary emboli. 2. No evidence for right heart strain. Mild cardiomegaly. 3. Minimal dependent atelectasis lung bases with otherwise no other acute chest disease. 4. Left thyroid mass is again seen. A stat report will be called to the emergency Department. ACT 112: Negative or not required by law. Electronically signed by: Clayton Denis M.D. 10/02/2021 1:47 PM Discharge Plan Visit Data Chief Complaint: Fever Stated Complaint: FEVER, VOMITING, HEADACHE AFTER VACCINE 2 DAYS AGO ED Provider: Adalberto Davis Discharge Problem: Pulmonary embolism associated with COVID-19 Forms Stand Alone Forms: [facility] [employer] Prescriptions Prescriptions: No Action atorvastatin 10 mg tablet 10 mg PO DAILY Qty: 90 RF: 3 losartan 100 mg tablet 100 mg PO DAILY Qty: 90 RF: 3 cholecalciferol (vitamin D3) 50 mcg (2,000 unit) capsule 50 mcg PO DAILY Qty: 90 RF: 1 ferrous sulfate 325 mg (65 mg iron) tablet 325 mg PO DAILY Qty: 100 RF: 0 prednisone 10 mg tablet 5 mg PO DAILY Qty: 180 RF: 0 mycophenolate mofetil 500 mg tablet 1,000 mg PO BID Qty: 360 RF: 3 hydroxychloroquine 200 mg tablet 200 mg PO BID RF: 0 Referrals Referrals: Nicolette Simms MD [Primary Care Provider] -
--- NOTE | 2021-10-02 11:13 | XRay Report ---
XR chest 1V portable HISTORY: Fever COMPARISON: Chest 10/14/2017. FINDINGS: No pneumothorax. No pleural effusions. Small hazy density within the left lung base securin g the right hemidiaphragm. The right lung is clear. The cardiac silhouette remains mildly enlarged. N o evidence for pulmonary edema. Stable right tracheal deviation due to the enlarged left thyroid lobe . IMPRESSION: 1. There appears to be a small hazy density within the left lung base obscuring the left hemidiaphrag m. This may represent a mild pneumonia. 2. Stable mild cardiomegaly. 3. Right tracheal deviation, unchanged. This is secondary to the patient's left thyroid goiter. ACT 112: Negative or not required by law. Electronically signed by: Louis Aponte M.D. 10/02/2021 11:12 AM
[2021-10-02 11:40] LABS: Basophils # (auto) 0.01 K/uL (0-0.2); Basophils % (auto) 0.3 %; Eosinophils # (auto) 0.02 K/uL (0-0.5); Eosinophils % (auto) 0.6 %; Hematocrit (blood only) 35.7 % (37-47); Hemoglobin 12.1 g/dL (12.0-16.0); Lymphocytes # (auto) 0.75 K/uL (1.2-3.4); Lymphocytes % (auto) 24.4 %; Mean Corpuscular Hemoglobin 29.4 pg (25-34); Mean Corpuscular Hgb Conc 33.9 g/dL (32-36); Mean Corpuscular Volume 86.7 fL (80-100); Mean Platelet Volume 9.7 fL (7.4-10.4); Monocytes # (auto) 0.39 K/uL (0.11-0.59); Monocytes % (auto) 12.7 %; Neutrophils # (auto) 1.91 K/uL (1.4-6.5); Platelet Count 164 K/uL (130-400); RDW Coefficient of Variation 13.4 % (11.5-14.5); Red Blood Count 4.12 M/uL (4.2-5.4); White Blood Count 3.08 K/uL (4.8-10.8)
[2021-10-02 12:01] LABS: Albumin Level 2.3 gm/dl (3.4-5.0); BUN Creatinine Ratio 22.4 (10-20); Calcium 8.8 mg/dl (8.5-10.1); Creatinine Clr Calc Pharmacy 78.4 ml/min; Est GFR (African American) 112.6 ml/min; Est GFR (Non-African American) 97.2 ml/min; Potassium 4.6 mmol/L (3.5-5.1)
[2021-10-02] MEDS ORDERED: SODIUM CHLORIDE 0.9% 1000ML 1,000 ML IV ONE ×2 (12:04→13:16)
[2021-10-02] MEDS ORDERED: OPTIRAY 320 125ml IV ONE (12:42)
[2021-10-02 13:18] LABS: Albumin Globulin Ratio 0.5 (0.9-2); Globulin 5.1 gm/dl (2.5-4.0); Total Protein 7.4 gm/dl (6.4-8.2)
--- NOTE | 2021-10-02 13:49 | CT Scan Report ---
CT angio chest PE protocol CLINICAL HISTORY: Fever. Evaluate for pulmonary embolus. COMPARISON STUDY: 10/15/2017 and portable chest from 10-21 CT DOSE: 230.92 mGycm TECHNIQUE: CT Angio of the chest was performed.followed by image post processing with coronal, and s agittal MIP reformats. Contrast Volume: Optiray 320, 110 ml FINDINGS: Large left lobe thyroid mass is again seen. Vasculature: Compared to the previous examination, intraluminal filling defects are seen within multi ple right upper and right lower lobe pulmonary artery branches along with left upper lobe pulmonary a rtery branch. The findings represent the presence of pulmonary emboli. Airway: The airway is clear. No endobronchial lesion is identified. Lungs: Minimal dependent atelectasis is present at both lung bases posteriorly. The lungs are otherwi se clear of acute alveolar opacities, air bronchograms or pulmonary nodules. Pleura: There is no evidence for pleural effusion. There is no evidence for pneumothorax. Mediastinum: There is no evidence for pathologic adenopathy. There is no evidence for right heart st rain. The heart size is mildly enlarged and there is no evidence for aortic dilatation. There is no e vidence for pericardial effusion. Upper abdomen:The adrenal glands are normal bilaterally. Osseous structures: There is no acute osseous pathology. Impression: 1. Multiple small bilateral pulmonary emboli. 2. No evidence for right heart strain. Mild cardiomegaly. 3. Minimal dependent atelectasis lung bases with otherwise no other acute chest disease. 4. Left thyroid mass is again seen. A stat report will be called to the emergency Department. ACT 112: Negative or not required by law. Electronically signed by: Clayton Denis M.D. 10/02/2021 1:47 PM
[2021-10-02 13:58] LABS: Potassium 4.4 mmol/L (3.5-5.1)
[2021-10-02 14:03] LABS: Bilirubin,Total 0.5 mg/dl (0.2-1)
[2021-10-02 14:06] LABS: Aspartate Aminotransferase 18 U/L (15-37); Troponin I < 0.015 ng/ml (0-0.045)
[2021-10-02 16:06] LABS: Fibrinogen 386 mg/dl (184-400); Partial Thromboplastin Time 26.3 Seconds (21.0-31.0)
[2021-10-02] MEDS ORDERED: LACTATED RINGER'S 1,000 ML IV ONE (16:10)
--- NOTE | 2021-10-02 16:17 | History & Physical Report ---
Date of Service October 02, 2021 Assessment & Plan (1) COVID-19: Plan: Unvaccinated approxmiate day of infection is day #4. Without hypoxia - Not hypoxic- not requiring supplemnetal oxygen - Currently does not meet criteria for remdisivir or other therapies - ESR-65, CRP<0.29 LDH, Ferritn-249.7, Fibrinogen-386- - PCT- <0.05 - CTA of the chest does not reveal any moderate to severe opacities- hopefully to contininue to do well - Supportive care- tylenol for pain/arthralgias/headache; IVF for hydration x1 liter- continue with PO intake - Self rotation therapy (2) Pulmonary embolism: Plan: Multifactorial with COVID and Lupus likely culprit - Does have history of long travel to [place] in late summer - Bilateral small PE - PESI - II - Shock index 0.8 - Troponin I negative - no evidence of right heart strain noted on CT scan- defer ECHO - Tachycardia responding to volume replacement - Anticoagulate with Lovenox 1mg/sq/q12 with lupus - Anticoag panel sent with MANINDER and Antiphospholipid panel- follow up results with rheum for transition - Case management consult for assistance with rheumatology follow up/transition to in network if possible (3) Hypertension: Plan: Controlled - continue ARB (4) Systemic lupus erythematosus: Plan: MANINDER and Antiphospholipid antibodies sent- no levels for review in our system or notes that are scanned in - Continue CellCept, Hydrochloroquine, Prednisone - Supportive care at this time - Follow renal function (5) jail current use of systemic steroids: Plan: Secondary to lupus - 5mg PO daily- did receive 60mg Solu-Medrol on the EMD - normotensive, normothermic, tachycardic- no indication for stress dose at this time - does not meet criteria for increase dose with COVID at this time (6) Thyroid enlargement: Plan: As per HPI noted to benign in 2017 per PCP notes - normal TSH in 2019- recheck in am labs (7) Vitamin D deficiency disease: Plan: Continue Vitamin D supplementation (8) Vitamin B 12 deficiency: Plan: Continue B12 supplementation (9) Chronic anemia: Plan: HGB 12 on admission with normal MCV (10) Nephrotic syndrome: Plan: 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 - BUN and MANUSCRIPTS CURATOR stable at this time - follow daily History of Present Illness Chief Complaint: fevers, loss of appetite, fatigue, joint pain Primary Care Provider: Nicolette Simms MD 46 YOF with past medical history of: LUPUS, lupus nephritis, HTN, enlarged thyroid, chronic anemia, B12 and Vitamin D deficiency. Patient comes in today for not feeling well for the past 4 days. This was generalized joint pain, headache, sinus congestion, fevers, loss of appetite and fatigue. Patient originally though this was related to her LUPUS and was having a flare. On arrival to the EMD the patient was noted to be tachycardic to the 130s NSR not hypotensive and not hypoxic on room air. She had routine labs drawn, CXR and CTA of her chest performed. Her CTA of her chest revealed multiple bilateral small pulmonary embolism. She was also noted to be positive for COVID 19. Patient also has large thyroid mass which has been noted since 2017 this does displace her trachea to the right- she was following with [facility]NT in 2017 and biopsy via PCP note was benign with normal TFT. She was given 2.5 liters of Crystalloid in the EMD with decrease in her HR to 110-120, 60mg of Solumederol for her arthralgias. Patient will be admitted for starting on therapeutic anticoagulation with Lovenox, monitoring of her tachycardia and hemodynamic status, and supportive care for her COVID. Patient speak turkmen as her primary language and interpreting services were used for gathering of her information. She endorses decreased PO intake since Friday, no chest pain or discomfort and dyspnea since Friday that was getting worse. She is on CellCept, Hydrochloroquine, and Prednisone for her Lupus. She is relatively early in her COVID disease, inflammatory markers sent as well as hypercoag panel. Will start on Lovenox 1mg/kg/q12 for her PE, she has no calf swelling or calf pain with palpation. She is normally followed by [facility] and is in the process of finding an in network master [employer]. Patient is not Vaccinated against COVID and her COVID test on admission is: POSITIVE. She is accompanied by her , he is vaccinated and so are their children at home. Instructed him to quarantine for the next 10-14 days with his children as well. He verbalized understanding of this. Allergies Allergy/AdvReac Type Severity Reaction Status Date / Time No Known Allergies Allergy Verified 10/02/21 11:56 Home Medications Medication Instructions Recorded Confirmed Type ferrous sulfate 325 mg (65 mg 325 mg PO DAILY #100 tab 08/23/19 10/02/21 History iron) tablet prednisone 10 mg tablet 5 mg PO DAILY #180 tab 10/06/19 10/02/21 History hydroxychloroquine 200 mg tablet 200 mg PO BID 04/10/20 10/02/21 History atorvastatin 10 mg tablet 10 mg PO DAILY #90 tab 09/14/20 10/02/21 Rx losartan 100 mg tablet 100 mg PO DAILY #90 tab 12/18/20 10/02/21 Rx cholecalciferol (vitamin D3) 50 50 mcg PO DAILY #90 cap 01/15/21 10/02/21 Rx mcg (2,000 unit) capsule mycophenolate mofetil 500 mg tablet 1,000 mg PO BID #360 tab 08/14/21 10/02/21 Rx Past Med/Surg History Medical History (Updated 10/02/21 @ 16:50 by NGUYEN Rivas) COVID-19 Fever Iron deficiency anemia Lupus Nephrotic syndrome Pulmonary embolism Rash Urinary tract infection Surgical History H/O tooth extraction Hx of section X4 Family History Father Diabetes Other Family history unknown Denies family history of Ovarian cancer Prostate cancer Breast cancer Colorectal cancer Social History Smoking Status: Never smoker Second Hand Exposure: No; Hx Alcohol Use: No Hx Substance Use: No Preferred Language: Latvian Communication Ability: Effective Communication Tools: Language Line Drill Sharpener Operator Visual Impairment: No Limitations Hearing Ability: Normal Drill Sharpener Operator Required: Yes Beliefs That Will Affect Care: None marital status: Current Living Situation: Spouse and Family current occupational status: unemployed How many Children do You have: 5 How many Children do You have Comment: 3 girls 2 boys Feels Safe at Home: Yes Safety Concerns: Feels Safe At This Time Childhood Exposure to Second-Hand Smoke: No during the past year weight has: decreased > 10 lbs Dental Care, Regularly: No Physical Activity Frequency: 1-2 Times per Week Seatbelt Use: always Sunscreen Use: No Review of Systems Review of Systems: REVIEW OF SYSTEMS: Constitutional: (+) fever, sweats or chills Eyes: No diplopia, no worsening or blurred vision ENT: normal hearing, no trouble swallowing Respiratory: (+) dyspnea on exertion, NO cough, sputum, dyspnea at rest Cardiovascular: (+) increase HR, No chest pain, tightness or palpitations Abdomen: No pain, nausea, vomiting, diarrhea or constipation Musculoskeletal: (+) arthralgias, joint pain, calf pain, swelling Neurologic: No weakness, numbness/tingling, or balance problems Psychiatric: No anxiety or depression Skin: No rash or itch Physical Exam Physical Exam: PHYSICAL EXAM: General: awake, alert, no apparent distress Head: Normocephalic, atraumatic ENT: PERRL, EOMI, no pharyngeal exudate, mucous membranes dry Neuro: AAO x 3, speech clear and appropriate, strength intact bilaterally 5/5, sensation intact and equal all extremities and dermatomes, no pronator drift Chest: equal rise and fall of the chest, no accessory muscle use, no heaves or thrills, Clear to auscultation, on room air, Cardiac: Regular rate and rhythm, telemetry reviewed-sinus tach no ectopy, skin warm dry, cap refill <3 seconds, peripheral pulses +2 no JVD, no murmur, no edema GI: NABS x 4 quadrants, soft, nontender to palpation, no rebound, guarding or tenderness : Spontaneously voiding, no pain, no CVA tenderness, Extremities: Normal inspection, no peripheral edema or erythema, calfs nontender to palpation Psych: Normal mood and affect Skin: no rash or erythema Results & Data Results & Data ([facility]) Vital Signs (Past 12 Hours) Vital Signs Temp Pulse Pulse Resp BP BP Pulse Ox 10/02/21 14:32 112 H 28 H 158/101 H 97 10/02/21 13:00 89 20 138/89 98 10/02/21 11:18 114 H 96 10/02/21 11:16 119 H 24 157/99 H 96 10/02/21 10:06 37.2 C 127 H 18 147/98 H 100 Laboratory Results Abnormal lab results 10/02/21 10/02/21 10/02/21 Range/Units 10:32 10:32 11:40 WBC 3.08 L (4.8-10.8) K/uL RBC 4.12 L (4.2-5.4) M/uL Hct 35.7 L (37-47) % Lymph # (Auto) 0.75 L (1.2-3.4) K/uL ESR (0-20) mm/hr BUN/Creatinine Ratio 22.4 H (10-20) Albumin 2.3 L (3.4-5.0) gm/dl Globulin 5.1 H (2.5-4.0) gm/dl Albumin/Globulin Ratio 0.5 L (0.9-2) SARS-CoV-2 (PCR) POSITIVE A* (Negative) 10/02/21 Range/Units 15:43 WBC (4.8-10.8) K/uL RBC (4.2-5.4) M/uL Hct (37-47) % Lymph # (Auto) (1.2-3.4) K/uL ESR 65 H (0-20) mm/hr BUN/Creatinine Ratio (10-20) Albumin (3.4-5.0) gm/dl Globulin (2.5-4.0) gm/dl Albumin/Globulin Ratio (0.9-2) SARS-CoV-2 (PCR) (Negative) Diagnostic Findings Chest X-Ray 10/02/21 10:32 XR chest 1V portable HISTORY: Fever COMPARISON: Chest 10/14/2017. FINDINGS: No pneumothorax. No pleural effusions. Small hazy density within the left lung base securing the right hemidiaphragm. The right lung is clear. The cardiac silhouette remains mildly enlarged. No evidence for pulmonary edema. Stable right tracheal deviation due to the enlarged left thyroid lobe. IMPRESSION: 1. There appears to be a small hazy density within the left lung base obscuring the left hemidiaphragm. This may represent a mild pneumonia. 2. Stable mild cardiomegaly. 3. Right tracheal deviation, unchanged. This is secondary to the patient's left thyroid goiter. ACT 112: Negative or not required by law. Electronically signed by: Louis Aponte M.D. 10/02/2021 11:12 AM Chest CTA 10/02/21 12:04 CT angio chest PE protocol CLINICAL HISTORY: Fever. Evaluate for pulmonary embolus. COMPARISON STUDY: 10/15/2017 and portable chest from 10-21 CT DOSE: 230.92 mGycm TECHNIQUE: CT Angio of the chest was performed.followed by image post processing with coronal, and sagittal MIP reformats. Contrast Volume: Optiray 320, 110 ml FINDINGS: Large left lobe thyroid mass is again seen. Vasculature: Compared to the previous examination, intraluminal filling defects are seen within multiple right upper and right lower lobe pulmonary artery branches along with left upper lobe pulmonary artery branch. The findings represent the presence of pulmonary emboli. Airway: The airway is clear. No endobronchial lesion is identified. Lungs: Minimal dependent atelectasis is present at both lung bases posteriorly. The lungs are otherwise clear of acute alveolar opacities, air bronchograms or pulmonary nodules. Pleura: There is no evidence for pleural effusion. There is no evidence for pneumothorax. Mediastinum: There is no evidence for pathologic adenopathy. There is no evidence for right heart strain. The heart size is mildly enlarged and there is no evidence for aortic dilatation. There is no evidence for pericardial effusion. Upper abdomen:The adrenal glands are normal bilaterally. Osseous structures: There is no acute osseous pathology. Impression: 1. Multiple small bilateral pulmonary emboli. 2. No evidence for right heart strain. Mild cardiomegaly. 3. Minimal dependent atelectasis lung bases with otherwise no other acute chest disease. 4. Left thyroid mass is again seen. A stat report will be called to the emergency Department. ACT 112: Negative or not required by law. Electronically signed by: Clayton Denis M.D. 10/02/2021 1:47 PM Medications Administered Home Medications ferrous sulfate 325 mg (65 mg iron) tablet 325 mg PO DAILY #100 tab 08/23/19 [History Confirmed 10/02/21] prednisone 10 mg tablet 5 mg PO DAILY #180 tab 10/06/19 [History Confirmed 10/02/21] hydroxychloroquine 200 mg tablet 200 mg PO BID 04/10/20 [History Confirmed 10/02/21] atorvastatin 10 mg tablet 10 mg PO DAILY #90 tab 09/14/20 [Rx Confirmed 10/02/21] losartan 100 mg tablet 100 mg PO DAILY #90 tab 12/18/20 [Rx Confirmed 10/02/21] cholecalciferol (vitamin D3) 50 mcg (2,000 unit) capsule 50 mcg PO DAILY #90 cap 01/15/21 [Rx Confirmed 10/02/21] mycophenolate mofetil 500 mg tablet 1,000 mg PO BID #360 tab 08/14/21 [Rx Confirmed 10/02/21] Active Medications Enoxaparin Sodium (Enoxaparin Inj 60 Mg/0.6 Ml Syr) 50 mg SQ Q12H OSMAN Stop: 11/01/21 16:29 Lactated Ringer's (Lr) 1,000 mls @ 100 mls/hr IV .Q10H ONE Stop: 10/03/21 02:09 Discontinued Medications Acetaminophen (Acetaminophen 325 Mg Tab) 650 mg PO ONE STA Stop: 10/02/21 10:33 Last Admin: 10/02/21 11:21 Dose: 650 mg Documented by: [id number] Sodium Chloride (Nss) 500 mls @ 999 mls/hr IV .Q31M STA Stop: 10/02/21 11:02 Last Infusion: 10/02/21 12:08 Dose: 0 mls/hr Documented by: [id number] Admin: 10/02/21 11:33 Dose: 999 mls/hr Documented by: [id number] Sodium Chloride (Nss 1000ml) 1,000 mls @ 999 mls/hr IV .Q1H1M ONE Stop: 10/02/21 14:16 Last Infusion: 10/02/21 15:36 Dose: 0 mls/hr Documented by: [id number] Admin: 10/02/21 14:33 Dose: 999 mls/hr Documented by: [id number] Ioversol (Optiray 320 125ml) 110 ml IV ONCE ONE Stop: 10/02/21 12:43 Last Admin: 10/02/21 12:43 Dose: 110 ml Documented by: [id number] Methylprednisolone (Methylprednisolone 125 Mg/2 Ml Vial) 60 mg IV NOW STA Stop: 10/02/21 10:35 Last Admin: 10/02/21 11:27 Dose: 60 mg Documented by: [id number] ECG Additional Comments: Vent. Rate : 111 BPM Atrial Rate : 111 BPM P-R Int : 146 ms QRS Dur : 082 ms QT Int : 324 ms P-R-T Axes : 035 -09 006 degrees QTc Int : 440 ms Sinus tachycardia When compared with ECG of 01-JAN-2019 20:00, No significant change was found Confirmed by Edison Fuller ([id number]) on 10/02/2021 4:42:12 PM Code Status & VTE Plan Code Status CODE: FULL VTE: SCDs, Lovenox Therapeutic 1mg/kg/BID VTE Prophylaxis Plan VTE Prophylaxis will be ordered: Yes Supervising Physician Co-Signing Physician Notes Attending Attestation and Admission Note: Pt seen/examined, chart reviewed, admit care plan d/w NGUYEN Angel Erencristo. I agree w/ the hurst components of his admit documentation. 46yo female with SLE on chronic prednisone/plaquenil/cellcept presents with 4 days of COVID symptoms. Unvaccinated. Upon presentation to ER noted to be tachycardic. CTA chest with multiple b/l PEs. No radiographic evidence of pneumonia with otherwise stable labs. No prior h/o VTE. PMH/PSH/allergies/meds/sochx/famhx - reviewed VSS, mildly tachy, o2 sats 99% in RA gen - looks sick but nontoxic, no increased work of breath/NAD mouth - MM slightly dry neck - thyroid mass/goiter on Left, nontender heart - tachy, s1 s2, no murmur; no rub lungs - CTA b/l abd - soft NT ND BS+; no HSM ext - no edema, symmetric legs, pulses 2+ b/l skin - no rash labs - wbc mildly decreased; CRP neg; trop neg; bmp wnl CTA chest reviewed A/P: 1. b/l PEs - risk factors include SLE, COVID-19 infection, and somewhat recent prolonged travel 2. COVID-19 infection without evidence of pneumonia 3. mild leukopenia - either 2nd to SLE or COVID-19 infection Mr Bowling discussed her care with the anticoagulation clinical nurse manager Dr Culver. In light of SLE will use lovenox in isis of DOAC for now. Antiphospholipid abx's sent, etc. Consider dopplers of legs r/o DVT. Check urine test. Serial labs. Supportive care for COVID with careful observation for development of pneumonia. updated at bedside during my exam. Naveen Quijano MD PG Care Time/CCT Total # of Minutes Spent Total Time Spent with Patient: Total time spent is greater than 50% in coordination of care (as documented) at patient's floor/unit and/or counseling patient: Coding Level of Care Code 35884 Initial Inpt Care Lvl 3 Diagnoses COVID-19 U07.1 Pulmonary embolism I26.99 Hypertension I10 emt intermediate current use of systemic steroids Z79.52 Systemic lupus erythematosus M32.9 Thyroid enlargement E04.9 Vitamin D deficiency disease E55.9 Vitamin B 12 deficiency E53.8 Chronic anemia D64.9 Nephrotic syndrome N04.9
[2021-10-02 16:18] LABS: C Reactive Protein < 0.29 mg/dl (0-0.29); Ferritin 249.7 ng/ml (8-388)
--- NOTE | 2021-10-02 16:42 | Electrocardiogram Report ---
Test Reason : Blood Pressure : / mmHG Vent. Rate : 111 BPM Atrial Rate : 111 BPM P-R Int : 146 ms QRS Dur : 082 ms QT Int : 324 ms P-R-T Axes : 035 -09 006 degrees QTc Int : 440 ms Sinus tachycardia When compared with ECG of 01-JAN-2019 20:00, No significant change was found Confirmed by Edison Fuller ([id number]) on 10/02/2021 4:42:12 PM Referred By: REFERRED SELF Confirmed By:Melquiades Fuller
[2021-10-02] MEDS: ENOXAPARIN INJ 60 MG/0.6 ML SYR SQ SCH (17:10)
[2021-10-02] MEDS ORDERED: ACETAMINOPHEN 325 MG TAB PO PRN (20:20)
[2021-10-02] MEDS ORDERED: ONDANSETRON INJ 2 MG/ML 2 ML VIAL IV PRN (20:20)
[2021-10-02] MEDS ORDERED: SODIUM CHLORIDE 0.9% 1000ML 1,000 ML IV SCH (21:15)
[2021-10-02] MEDS: MYCOPHENOLATE MOFETIL 250 MG CAP PO SCH (21:56)
[2021-10-02] MEDS: HYDROXYCHLOROQUINE SULFATE 200 MG TAB PO SCH (21:57)
[2021-10-03] MEDS: ENOXAPARIN INJ 60 MG/0.6 ML SYR SQ SCH ×2 (03:52→16:34)
[2021-10-03 04:11] LABS: Appearance Urine Clear (Clear); Bacteria Urine Automated Negative (Negative); Bilirubin Urine Negative (Negative); Blood Urine 2+ (Negative); Cast Urine Automated 0 /lpf (0-5); Color Urine Yellow; Epithelial Cell Urine Auto 20-30 /lpf (0-5); Glucose Urine UA Negative (Negative); Ketones Urine Trace (Negative); Leukocyte Esterase Urine Trace (Negative); Nitrite Urine Negative (Negative); Protein Urine 2+ (Negative); Specific Gravity Urine 1.006 (1.000-1.030); Urobilinogen Urine Negative (Negative)
[2021-10-03 07:39] LABS: Pregnancy Test, Urine Negative (Negative)
[2021-10-03 08:16] LABS: Basophils # (auto) 0.01 K/uL (0-0.2); Basophils % (auto) 0.3 %; Hematocrit (blood only) 32.8 % (37-47); Hemoglobin 10.8 g/dL (12.0-16.0); Immature Granulocytes # (auto) 0.01 K/uL (0.00-0.02); Immature Granulocytes % (auto) 0.3 %; Lymphocytes # (auto) 0.89 K/uL (1.2-3.4); Lymphocytes % (auto) 29.9 %; Mean Corpuscular Hemoglobin 28.6 pg (25-34); Mean Corpuscular Hgb Conc 32.9 g/dL (32-36); Mean Platelet Volume 9.8 fL (7.4-10.4); Monocytes # (auto) 0.36 K/uL (0.11-0.59); Monocytes % (auto) 12.1 %; Neutrophils # (auto) 1.71 K/uL (1.4-6.5); Neutrophils % (auto) 57.4 %; Platelet Count 190 K/uL (130-400); RDW Coefficient of Variation 13.4 % (11.5-14.5); RDW Standard Deviation 42.9 fL (36.4-46.3); Red Blood Count 3.77 M/uL (4.2-5.4); White Blood Count 2.98 K/uL (4.8-10.8)
[2021-10-03] MEDS: MYCOPHENOLATE MOFETIL 250 MG CAP PO SCH ×2 (08:27→20:08)
[2021-10-03] MEDS: ATORVASTATIN 10 MG TAB PO SCH (08:27)
[2021-10-03] MEDS: CHOLECALCIFEROL 1,000 UNITS 25 MCG TAB PO SCH (08:27)
[2021-10-03] MEDS: HYDROXYCHLOROQUINE SULFATE 200 MG TAB PO SCH ×2 (08:28→20:08)
[2021-10-03] MEDS: predniSONE 5 MG TAB PO SCH (08:28)
[2021-10-03] MEDS: FERROUS SULFATE 325 MG TAB PO SCH (08:28)
[2021-10-03] MEDS: LOSARTAN POTASSIUM 50 MG TAB PO SCH (08:28)
[2021-10-03 08:50] LABS: BUN Creatinine Ratio 25.3 (10-20); Calcium 8.8 mg/dl (8.5-10.1); Creatinine Clr Calc Pharmacy 95.3 ml/min; Est GFR (Non-African American) 108.7 ml/min; Magnesium 2.2 mg/dl (1.8-2.4); Potassium 4.3 mmol/L (3.5-5.1)
[2021-10-03 09:01] LABS: Thyroid Stimulating Hormone 0.441 uIu/ml (0.300-4.500)
--- NOTE | 2021-10-03 16:37 | Hospitalist Progress Note ---
Date of Service October 03, 2021 Assessment & Plan (1) COVID-19: Plan: Unvaccinated approxmiate day of infection is day #4. Without hypoxia - Not hypoxic- not requiring supplemnetal oxygen - Currently does not meet criteria for remdisivir or other therapies - ESR-65, CRP<0.29 LDH, Ferritn-249.7, Fibrinogen-386- - PCT- <0.05 - CTA of the chest does not reveal any moderate to severe opacities- hopefully to contininue to do well - Supportive care- tylenol for pain/arthralgias/headache; IVF for hydration x1 liter- continue with PO intake - Self rotation therapy Patient remains on low-dose prednisone for her lupus (2) Pulmonary embolism: Plan: Multifactorial with COVID and Lupus likely culprit - Does have history of long travel to [place] in late summer - Bilateral small PE's - PESI - II - Shock index 0.8 - Troponin I negative - no evidence of right heart strain noted on CT scan- defer ECHO - Tachycardia responding to volume replacement - Anticoagulate with transition from Lovenox 1mg/sq/q12 to Xarelto - Anticoag panel sent with MANINDER and Antiphospholipid panel- follow up results with rheum for transition - Case management consult for assistance with rheumatology follow up/transition to in network if possible (3) Hypertension: Plan: Remains controlled - continue ARB (4) Systemic lupus erythematosus: Plan: MANINDER and Antiphospholipid antibodies sent- no levels for review in our system or notes that are scanned in - Continue CellCept, Hydrochloroquine, Prednisone - Supportive care at this time -Stable renal function (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: Plan: Secondary to lupus - 5mg PO daily- did receive 60mg Solu-Medrol on the EMD - normotensive, normothermic, tachycardic- no indication for stress dose at this time - does not meet criteria for increase dose with COVID at this time (6) Thyroid enlargement: Plan: As per HPI noted to benign in 2017 per PCP notes - normal TSH in 2019- recheck in am labs (7) Vitamin D deficiency disease: Plan: Continue Vitamin D supplementation (8) Vitamin B 12 deficiency: Plan: Continue B12 supplementation (9) Chronic anemia: Plan: HGB 12 on admission with normal MCV (10) Nephrotic syndrome: Plan: 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 - BUN and IT DESKTOP SUPPORT TECHNICIAN stable at this time - follow daily Admission and Anticipated Discharge Date Admission Date: October 02, 2021 Subjective I did discuss this patient through the unstacker. She does feel minor chest discomfort has no dyspnea has had no cough or hemoptysis Review of Systems Review of Systems: Mild distress and fatigue no headache, no visual changes no speech or swallowing issues Pleuritic chest pain, without pressure or palpitations Mild shortness of breath, occasional nonproductive cough no abdominal pain, nausea or vomiting, diarrhea or constipation no dysuria, hematuria or frequency no focal joint pain or swelling no back pain, CVA tenderness or radicular pain no bruising, bleeding or rashes no focal signs of weakness or numbness or altered sensation no complaints of anxiety or depression.. Physical Exam Physical Exam: The patient appeared well nourished and normally developed. Vital signs as documented. Head exam is normocephalic atraumatic Neck is without JVD, thyromegaly, or carotid bruits. Lungs are clear to auscultation, no focal loss of breath sounds Cardiac exam, Rhythm is regular.. No murmurs, rubs or gallops. Abdominal exam reveals normal bowel sounds, soft non tender, no masses Extremities are nonedematous and both pedal pulses are present Neurologic exam is alert and oriented, no focal loss of strength or sensation Skin is without bruises or rashes Psychologically is without concerns for anxiety or depression Results & Data Results & Data ([facility]) Vital Signs (Past 12 Hours) Vital Signs Temp Pulse Pulse Resp BP Pulse Ox Pulse Ox 10/03/21 15:57 91 H 10/03/21 15:14 98.8 F 89 19 137/84 99 10/03/21 11:12 98.1 F 113 H 19 157/88 H 98 10/03/21 08:15 91 H 98 10/03/21 07:38 98.6 F 84 20 157/97 H 100 PG Care Time/CCT Total # of Minutes Spent Total Time Spent with Patient: Total time spent is greater than 50% in coordination of care (as documented) at patient's floor/unit and/or counseling patient: Coding Level of Care Code 14903 Subseq Hosp Care Lvl 2 Diagnoses COVID-19 U07.1 Pulmonary embolism I26.99 Hypertension I10 Systemic lupus erythematosus M32.9 intermodal dispatcher 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
[2021-10-03] MEDS: RIVAROXABAN 15 MG TAB PO SCH (17:47)
[2021-10-04 07:26] LABS: Eosinophils # (auto) 0.03 K/uL (0-0.5); Eosinophils % (auto) 1.3 %; Hematocrit (blood only) 30.6 % (37-47); Hemoglobin 9.9 g/dL (12.0-16.0); Lymphocytes # (auto) 0.67 K/uL (1.2-3.4); Lymphocytes % (auto) 29.6 %; Mean Corpuscular Hemoglobin 28.4 pg (25-34); Mean Corpuscular Hgb Conc 32.4 g/dL (32-36); Mean Corpuscular Volume 87.9 fL (80-100); Mean Platelet Volume 10.3 fL (7.4-10.4); Monocytes # (auto) 0.28 K/uL (0.11-0.59); Monocytes % (auto) 12.4 %; Neutrophils # (auto) 1.28 K/uL (1.4-6.5); Neutrophils % (auto) 56.7 %; Platelet Count 167 K/uL (130-400); RDW Coefficient of Variation 13.5 % (11.5-14.5); RDW Standard Deviation 43.3 fL (36.4-46.3); Red Blood Count 3.48 M/uL (4.2-5.4); White Blood Count 2.26 K/uL (4.8-10.8)
[2021-10-04 08:02] LABS: BUN Creatinine Ratio 26.4 (10-20); Calcium 8.1 mg/dl (8.5-10.1); Creatinine Clr Calc Pharmacy 90.9 ml/min; Potassium 3.9 mmol/L (3.5-5.1)
[2021-10-04] MEDS: RIVAROXABAN 15 MG TAB PO SCH (09:59)
[2021-10-04] MEDS: predniSONE 5 MG TAB PO SCH (09:59)
[2021-10-04] MEDS: FERROUS SULFATE 325 MG TAB PO SCH (09:59)
[2021-10-04] MEDS: LOSARTAN POTASSIUM 50 MG TAB PO SCH (09:59)
[2021-10-04] MEDS: CHOLECALCIFEROL 1,000 UNITS 25 MCG TAB PO SCH (09:59)
[2021-10-04] MEDS: ATORVASTATIN 10 MG TAB PO SCH (10:00)
[2021-10-04] MEDS: HYDROXYCHLOROQUINE SULFATE 200 MG TAB PO SCH (10:00)
[2021-10-04] MEDS: MYCOPHENOLATE MOFETIL 250 MG CAP PO SCH (10:00)
[2021-10-04] MEDS ORDERED: COUGH DROP (SUGAR FREE) LOZ 24 LOZ/1 BOX BUCCAL ONE (10:03)
--- NOTE | 2021-10-04 17:46 | Discharge Summary ---
Date of Service October 04, 2021 Admission HPI Per Admitting Provider 46 YOF with past medical history of: LUPUS, lupus nephritis, HTN, enlarged thyroid, chronic anemia, B12 and Vitamin D deficiency. Patient comes in today for not feeling well for the past 4 days. This was generalized joint pain, headache, sinus congestion, fevers, loss of appetite and fatigue. Patient originally though this was related to her LUPUS and was having a flare. On arrival to the EMD the patient was noted to be tachycardic to the 130s NSR not hypotensive and not hypoxic on room air. She had routine labs drawn, CXR and CTA of her chest performed. Her CTA of her chest revealed multiple bilateral small pulmonary embolism. She was also noted to be positive for COVID 19. Patient also has large thyroid mass which has been noted since 2017 this does displace her trachea to the right- she was following with [facility] in 2017 and biopsy via PCP note was benign with normal TFT. She was given 2.5 liters of Crystalloid in the EMD with decrease in her HR to 110-120, 60mg of Solumederol for her arthralgias. Patient will be admitted for starting on therapeutic anticoagulation with Lovenox, monitoring of her tachycardia and hemodynamic status, and supportive care for her COVID. Patient speak croatian as her primary language and interpreting services were used for gathering of her information. She endorses decreased PO intake since Friday, no chest pain or discomfort and dyspnea since Friday that was getting worse. She is on CellCept, Hydrochloroquine, and Prednisone for her Lupus. She is relatively early in her COVID disease, inflammatory markers sent as well as hypercoag panel. Will start on Lovenox 1mg/kg/q12 for her PE, she has no calf swelling or calf pain with palpation. 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 Patient is not Vaccinated against COVID and her COVID test on admission is: POSITIVE. She is accompanied by her , he is vaccinated and so are their children at home. Instructed him to quarantine for the next 10-14 days with his children as well. He verbalized understanding of this. Principal Diagnosis Pulmonary embolism COVID-19 infection Discharge Exam The patient appeared well Vital signs as documented. Lungs are clear to auscultation and appear unlabored Cardiac exam, Rhythm is regular.. No murmurs, rubs or gallops. Abdominal exam reveals normal bowel sounds, soft non tender, no masses Extremities are nonedematous and both pedal pulses are normal. Neurologic exam is alert and oriented, no focal loss of strength or sensation Skin is without bruises or rashes Psychologically is without concerns for anxiety or depression. Discharge Data Allergies Allergy/AdvReac Type Severity Reaction Status Date / Time No Known Allergies Allergy Verified 10/02/21 11:56 Consultations 10/02/21 15:08 ED Decision to Admit Stat Ordered Studies 10/02/21 12:04 CT angio chest PE protocol Stat Hospital Course (1) COVID-19: Unvaccinated approxmiate day of infection is day #4. Without hypoxia - Not hypoxic- not requiring supplemnetal oxygen - Currently does not meet criteria for remdisivir or other therapies - ESR-65, CRP<0.29 LDH, Ferritn-249.7, Fibrinogen-386- - PCT- <0.05 - CTA of the chest does not reveal any moderate to severe opacities- hopefully to contininue to do well - Supportive care- tylenol for pain/arthralgias/headache; - Self rotation therapy Patient remains on low-dose prednisone for her lupus (2) Pulmonary embolism: Multifactorial with COVID and Lupus likely culprit - Does have history of long travel to [place] in late summer - Bilateral small PE's - PESI - II - Shock index 0.8 - Troponin I negative - no evidence of right heart strain noted on CT scan- - Tachycardia responding to volume replacement - Anticoagulate with transition from Lovenox 1mg/sq/q12 to Xarelto - Anticoag panel sent with MANINDER and Antiphospholipid panel- follow up results with rheum for transition - Case management consult for assistance with rheumatology follow up/transition to in network if possible (3) Hypertension: Remains controlled - continue ARB (4) Systemic lupus erythematosus: MANINDER and Antiphospholipid antibodies sent- no levels for review in our system or notes that are scanned in - Continue CellCept, Hydrochloroquine, Prednisone - Supportive care at this time -Stable renal function attempt referral to pneumatic system conveyor operator to continue her care (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: Secondary to lupus - 5mg PO daily- did receive 60mg Solu-Medrol on the EMD under 5 mg daily dose - normotensive, normothermic, tachycardic- no indication for stress dose at this time - does not meet criteria for increase dose with COVID at this time (6) Thyroid enlargement: As per HPI noted to benign in 2017 per PCP notes - normal TSH in 2019- recheck in am labs (7) Vitamin D deficiency disease: Continue Vitamin D supplementation (8) Vitamin B 12 deficiency: Continue B12 supplementation (9) Chronic anemia: HGB 12 on admission with normal MCV (10) Nephrotic syndrome: 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 Total Time Total Time Spent Total Time Spent (In Minutes): It required greater than 30 minutes to prepare this patient for discharge Discharge Plan Discharge Items Patient Disposition: Home - Self-Care Reason For Visit: covid, pulmonary embolism Discharge Diagnosis: pulmonary embolism-blood clot in lungs covid infection left thyroid mass->recommend follow up with primary care Activity: Resume your previous activity Non-emergency contact: Primary Care Provider Call non-emergency contact if: your symptoms worsen and you have a fever Follow-up/Referrals: Nicolette Simms MD [Primary Care Provider] - Elizabeth Gibbons PA-C [Physician [facility]] - 10/16/21 1:30 pm (Please follow up with Elizabeth Gibbons PA-C on Friday10/16/21 at 1:30 pm. Please arrive to the office at 1:15 pm for your appointment. If you are unable to keep this appointment, please call the office to reschedule at [phone]. ) Diet: Regular Addtl Attending Provider Instructions: please take your xarelto for 6 months follow up with your primary care provider please continue to follow up for the slight enlargement seen in your thyroid gland Medication Instructions: Your condition is typically treated with an anticoagulant. Anticoagulants will thin your blood to help prevent new clots. * You should take her medication exactly as directed. * Never skip a dose. * Never take a double dose. If you miss a dose, take it as soon as you remember. Call your Primary Care doctor if you experience any of the following: * Swelling or Pain in your leg * Sudden, continuous pain deep in a muscle * Pain that worsens when you are active or when you stand still for a long time * Chest Pain * Sudden Shortness of Breath * Rapid or pounding heart beat * Fainting * Dizziness * Cough with blood or bloody sputum * Sweating more than normal * Bruises * Heavy or uncontrolled bleeding * Blood in your urine, stool or vomit * Black or tarry stools Caring for Your Self at Home: * Avoid sitting, standing or lying down for long periods without moving your legs and feet * When traveling by car, stop to get out and move around at least once every 3 hours * On long airplane, train or bus rides, get up and move around when possible * If you can't get up, wiggle your toes and tighten your calves to keep your blood moving Follow Up: It is important for you to keep your follow up appointments with your medical provider. Pending Studies at Discharge: No Stand-Alone Forms: My [facility], Smoking Cessation Medications and DC Order Prescriptions: New Xarelto DVT-PE Treat 30d Start 15 mg (42)- 20 mg (9) tablets,dose pack See Rx Instructions .ROUTE .COMPLEX Qty: 51 RF: 0 Xarelto 20 mg tablet 20 mg PO DAILY Qty: 30 RF: 5 Continued atorvastatin 10 mg tablet 10 mg PO DAILY Qty: 90 RF: 3 losartan 100 mg tablet 100 mg PO DAILY Qty: 90 RF: 3 cholecalciferol (vitamin D3) 50 mcg (2,000 unit) capsule 50 mcg PO DAILY Qty: 90 RF: 1 ferrous sulfate 325 mg (65 mg iron) tablet 325 mg PO DAILY Qty: 100 RF: 0 prednisone 10 mg tablet 5 mg PO DAILY Qty: 180 RF: 0 mycophenolate mofetil 500 mg tablet 1,000 mg PO BID Qty: 360 RF: 3 hydroxychloroquine 200 mg tablet 200 mg PO BID RF: 0 Discharge Orders: Discharge Order (Routine); Ordered 10/04/21 Ordered By: Marcelo Mooney Admission Data Admit Date/Time: 10/02/21 15:27 Attending Provider: Marcelo Mooney Admit Provider: Naveen Quijano Primary Care Provider: Nicolette Simms V. Other Providers: Naveen Quijano Other Interventions: Discharge Summary Assessment (RN) Last Done: 10/04/21 12:39 Coding Level of Care Code D/C DAY MANAGEMENT >30 MINS Diagnoses COVID-19 U07.1 Pulmonary embolism I26.99 Hypertension I10 Systemic lupus erythematosus M32.9 senior care 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
[2021-10-05 15:06] LABS: Anti Cardiolipin Ab IgG <2.0 GPL-U/mL; Anti Cardiolipin Ab IgM <2.0 MPL-U/mL; Anti Nuclear Antibody Screen POSITIVE (NEGATIVE)
[2021-10-07 08:12] LABS: B2 Glycoprotein IgA <2.0 U/mL (<20.0); B2 Glycoprotein IgG <2.0 U/mL (<20.0); B2 Glycoprotein IgM <2.0 U/mL (<20.0); PTT LA Screen 41 sec (<=40); Phosphatidylserine IgG 10 U/mL (<10); Phosphatidylserine IgM <25 U/mL (<25)
[2021-10-08 13:35] LABS: ANA Pattern Nuclear, Speckled; ANA Pattern 2 Nuclear, Homogeneous; ANA Pattern 3 Cytoplasmic; ANA Titer > OR = 1:1280 titer; ANA Titer 2 > OR = 1:1280 titer; ANA Titer 3 1:40 titer
[2021-10-08 13:50] LABS: Lupus Hex Phase (Rflxdonotord) Negative (Negative)
== END 2021-10-04 13:54 | disposition home or self-care (01) | DRG 177 ==
LOC: ED 10:04 → 2S 15:27 → SUATTDRO 15:27 → 2S 18:45

== ENCOUNTER 2022-07-26 10:19 | Inpatient (IN) ==
[2022-07-26 11:18] LABS: Basophils # (auto) 0.01 K/uL (0-0.2); Basophils % (auto) 0.4 %; Eosinophils # (auto) 0.03 K/uL (0-0.50); Eosinophils % (auto) 1.2 %; Hematocrit (blood only) 29.8 % (34.1-44.9); Hemoglobin 9.5 g/dl (12.0-16.0); Immature Granulocytes # (auto) 0.03 K/uL (0.00-0.02); Immature Granulocytes % (auto) 1.2 %; Lymphocytes # (auto) 0.62 K/uL (1.2-3.4); Mean Corpuscular Hemoglobin 28.7 pg (25.0-34.0); Mean Corpuscular Hgb Conc 31.9 g/dL (32.0-36.0); Mean Platelet Volume 9.7 fL (9.4-12.3); Monocytes # (auto) 0.19 K/uL (0.24-0.82); Monocytes % (auto) 7.4 %; Neutrophils % (auto) 65.8 %; Platelet Count 160 K/uL (130-400); RDW Coefficient of Variation 15.7 % (11.5-14.5); RDW Standard Deviation 51.3 fL (36.4-46.3); Red Blood Count 3.31 M/uL (3.93-5.22); White Blood Count 2.58 K/ul (4.8-10.8)
[2022-07-26 11:22] LABS: Appearance Urine Cloudy (Clear); Bacteria Urine Automated Negative (Negative); Blood Urine 3+ (Negative); Color Urine Dark Yellow; Epithelial Cell Urine Auto >30 /lpf (0-5); Glucose Urine UA Negative (Negative); Ketones Urine Trace (Negative); Leukocyte Esterase Urine Trace (Negative); Nitrite Urine Negative (Negative); Protein Urine 4+ (Negative); Specific Gravity Urine 1.035 (1.000-1.030); Urobilinogen Urine Negative (Negative); WBC Urine Automated >30 /hpf (0-5)
[2022-07-26 11:24] LABS: Bilirubin Urine 1+ (Negative)
--- NOTE | 2022-07-26 11:25 | Electrocardiogram Report ---
Test Reason : Blood Pressure : / mmHG Vent. Rate : 095 BPM Atrial Rate : 095 BPM P-R Int : 118 ms QRS Dur : 076 ms QT Int : 326 ms P-R-T Axes : 081 -15 007 degrees QTc Int : 409 ms Poor data quality, interpretation may be adversely affected Normal sinus rhythm Normal ECG When compared with ECG of 02-OCT-2021 14:32, HR has decreased by 16 bpm Otherwise no significant change Confirmed by Darryl Brown ([id number]) on 07/26/2022 11:24:52 AM Referred By: Confirmed By:Darryl Brown
[2022-07-26 11:27] LABS: Albumin Globulin Ratio 0.7 (0.9-2); Albumin Level 2.4 gm/dl (3.4-5.0); BUN Creatinine Ratio 21.6 (10-20); Bilirubin,Total 0.4 mg/dl (0.2-1.0); Calcium 7.6 mg/dl (8.5-10.1); Creatinine Clr Calc Pharmacy 77.7 ml/min; Est GFR (African American) 111.8 ml/min; Est GFR (Non-African American) 96.5 ml/min; Globulin 3.4 gm/dl (2.5-4.0); Potassium 4.5 mmol/L (3.5-5.1); Total Protein 5.8 gm/dl (6.0-8.3)
[2022-07-26] MEDS ORDERED: SODIUM CHLORIDE 0.9% 1000ML 1,000 ML IV ONE (11:53)
--- NOTE | 2022-07-26 11:58 | Emergency Department Note ---
History of Present Illness General Chief complaint: Fever Stated complaint: FEVER, WEAKNESS Time Seen by Provider: 07/26/22 11:27 History of Present Illness Maximum Pain Intensity: 8 History and examination performed with assistance from patient's translating, patient comfortable with this. This is a 47-year-old female with a history of lupus, long-term steroid use, chronic anemia, nephrotic syndrome, PE secondary to COVID-19 8 months ago, who presents with 3 days of subjective fever, diffuse upper abdominal pain, nausea, and bilateral knee and lower leg pain. She flew back from [place] 16-hour flight 4 days ago. She noted leg swelling in bilateral lower extremities after the flight that lasted for 3 days. The swelling improved but the pain persists. She has been taking Tylenol for her subjective fever which improves this symptom but it returns after the medication wears off. She does acknowledge she has had leg pain in the past with prior lupus flares. 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 She was receiving Benlysta infusions for several months starting in January 2021 due to ongoing lupus symptoms which resulted in better control of her symptoms. She stopped receiving this in March of this year due to insurance issues and is currently in the process of trying to get this approved through her insurance. Follows with Dr. German Padilla [facility]. She has not had any sinus congestion, sore throat, cough, shortness of breath, chest pain, vomiting, dysuria, hematuria, constipation or diarrhea. Per her she has not been eating or drinking very much over the past few days. She continues to take her other medications as prescribed, although states that she is not taking the Xarelto any longer for the PE, took this for 6 months. Home Medications Medication Instructions Recorded Confirmed Type prednisone 10 mg tablet 5 mg PO DAILY #180 tabs 10/06/19 07/26/22 History hydroxychloroquine 200 mg tablet 200 mg PO BID 04/10/20 07/26/22 History cholecalciferol (vitamin D3) 50 50 mcg PO DAILY #90 caps 01/15/21 07/26/22 Rx mcg (2,000 unit) capsule atorvastatin 10 mg tablet 10 mg PO DAILY #90 tabs 10/11/21 07/26/22 Rx mycophenolate mofetil 500 mg tablet 1,000 mg PO BID #360 tabs 10/22/21 07/26/22 Rx ondansetron HCl 4 mg tablet 4 mg PO Q8H PRN nausea and 11/22/21 07/26/22 Rx (Zofran) vomiting #20 tabs losartan 100 mg tablet 100 mg PO DAILY #90 tabs 01/09/22 07/26/22 Rx Allergies Allergy/AdvReac Type Severity Reaction Status Date / Time No Known Allergies Allergy Verified 07/26/22 19:28 Past Med/Surg History Medical History Fever Iron deficiency anemia Lupus Nephrotic syndrome Pulmonary embolism Rash Urinary tract infection Surgical History H/O tooth extraction Hx of section X4 Family History Father Diabetes Other Family history unknown Denies family history of Ovarian cancer Prostate cancer Breast cancer Colorectal cancer Social History Smoking Status: Never smoker Second Hand Exposure: No; Hx Alcohol Use: No Hx Substance Use: No Preferred Language: Danish Communication Ability: Effective Communication Tools: IPad Visual Impairment: No Limitations Hearing Ability: Normal Heel Blacker Required: Yes Beliefs That Will Affect Care: None marital status: Current Living Situation: Spouse and Family current occupational status: unemployed How many Children do You have: 5 How many Children do You have Comment: 3 girls 2 boys Feels Safe at Home: Yes Childhood Exposure to Second-Hand Smoke: No during the past year weight has: decreased > 10 lbs Dental Care, Regularly: No Physical Activity Frequency: 1-2 Times per Week Seatbelt Use: always Sunscreen Use: No Review of Systems See HPI for pertinent positives & negatives. and A total of 10 systems reviewed and were otherwise negative Physical Exam Vital Signs Vital Signs - 24 hr 07/26/22 10:29 07/26/22 12:19 07/26/22 12:20 Temperature 97.2 F L Temperature Source Temporal Artery Scan Pulse Rate 101 H Pulse Rhythm Regular Pulse Strength Normal Respiratory Rate 20 Respiratory Effort / Characteristics Non-Labored Spontaneous Non-Labored Spontaneous Respiratory Depth Normal Normal Respiratory Pattern Regular Blood Pressure 132/87 Blood Pressure Mean 102 Blood Pressure Position Sitting Pulse Oximetry 98 Oxygen Delivery Method Room Air Room Air Sepsis Recent Fever Within 48 Hours No Sepsis New/Unexplained Change in Mental Status No Sepsis Action Taken by Nursing No Action Required CONSTITUTIONAL: Well developed, well nourished, reserved, nontoxic, engages with examiner as best as she can. HEAD: Normocephalic, atraumatic. EYES: conjunctivae normal, extraocular muscles intact. ENMT: External ears normal. Nose with normal external appearance, no co ngestion. Oral mucous membranes dry. No oropharyngeal erythema. NECK: Full active range of motion. RESPIRATORY: Breathing unlabored and symmetric. Lungs clear to auscultation bilaterally. No wheeze, rales, or rhonchi. CARDIOVASCULAR: Tachycardic rate and regular rhythm. No murmurs, rubs, or collins ps. PT pulses 2+ bilaterally. ABDOMEN: Normal bowel sounds. Abdomen is soft. There is diffuse upper abdominal tenderness. No masses, no peritonitis. No CVA tenderness bilaterally. MUSCULOSKELETAL: Able to move bilateral upper and lower extremities at all joints. There is no lower extremity edema or skin color changes. There is diffuse tenderness in bilateral calfs, knees, and upper legs. SKIN: [place], warm, dry. NEUROLOGIC: Alert and oriented x 3. No acute motor or sensory deficits in bilat eral lower extremities. Cranial nerves grossly intact. PSYCHIATRIC: Appropriate. Normal affect. Course Administered Medications Acetaminophen (Acetaminophen 325 Mg Tab) 650 mg PO Q4H PRN PRN Reason: pain/fever Stop: 08/25/22 18:34 Last Admin: 07/26/22 20:32 Dose: 650 mg Documented By: ANASTASIIA Sodium Chloride (Nss 1000ml) 1,000 mls @ 999 mls/hr IV .Q1H1M ONE Stop: 07/26/22 12:53 Last Infusion: 07/26/22 15:18 Dose: 0 mls/hr Documented By: Admin: 07/26/22 12:09 Dose: 999 mls/hr Documented By: ANASTASIIA Cefepime HCl 2,000 mg/ Syringe 20 mls @ 5 mls/min IV NOW STA; Protocol Stop: 07/26/22 15:57 Last Admin: 07/26/22 17:31 Dose: 5 mls/min Documented By: ANASTASIIA Lactated Ringer's (Lr) 1,000 mls @ 90 mls/hr IV .Q11H7M OSMAN Stop: 07/27/22 06:00 Last Admin: 07/26/22 17:01 Dose: 90 mls/hr Documented By: VIKTORIA Ioversol (Optiray 300 500ml) 120 ml IV ONCE ONE Stop: 07/26/22 13:14 Last Admin: 07/26/22 13:13 Dose: 120 ml Documented By: POPPY Discontinued Medications Ceftriaxone Sodium (Rocephin) 2,000 mg in 70 mls @ 140 mls/hr IV NOW STA Stop: 07/26/22 14:35 Last Infusion: 07/26/22 15:56 Dose: 0 mls/hr Documented By: Admin: 07/26/22 15:18 Dose: 140 mls/hr Documented By: ANASTASIIA Medical Decision Making Differential Diagnosis DVT, PE, intra-abdominal, UTI, lupus flare, viral infection, sprain, strain, cardiac, among other pathology Medical Records Attestation: I reviewed the patient's medical records. Laboratory Data Result diagrams: 07/26/22 10:47 07/26/22 10:47 Lab Results 07/26/22 07/26/22 07/26/22 Range/Units 10:47 10:47 10:47 WBC 2.58 L (4.8-10.8) K/ul RBC 3.31 L (3.93-5.22) M/uL Hgb 9.5 L (12.0-16.0) g/dl Hct 29.8 L (34.1-44.9) % MCV 90.0 (80.0-100.0) fL MCH 28.7 (25.0-34.0) pg MCHC 31.9 L (32.0-36.0) g/dL RDW Std Deviation 51.3 H (36.4-46.3) fL RDW Coeff of Bisi 15.7 H (11.5-14.5) % Plt Count 160 (130-400) K/uL MPV 9.7 (9.4-12.3) fL Immature Gran % (Auto) 1.2 % Neut % (Auto) 65.8 % Lymph % (Auto) 24.0 % Summers % (Auto) 7.4 % Eos % (Auto) 1.2 % Baso % (Auto) 0.4 % Neut # (Auto) 1.70 (1.4-6.5) K/uL Lymph # (Auto) 0.62 L (1.2-3.4) K/uL Summers # (Auto) 0.19 L (0.24-0.82) K/uL Eos # (Auto) 0.03 (0-0.50) K/uL Baso # (Auto) 0.01 (0-0.2) K/uL Immature Gran # (Auto) 0.03 H (0.00-0.02) K/uL Sodium 139 (136-145) mmol/L Potassium 4.5 (3.5-5.1) mmol/L Chloride 112 H (98-107) mmol/L Carbon Dioxide 24 (21-32) mmol/L Anion Gap 3 (3-11) BUN 16 (6-23) mg/dl Creatinine 0.74 (0.6-1.2) mg/dl Est Cr Clr Drug Dosing 77.7 ml/min Est GFR ( Amer) 111.8 ml/min Est GFR (Non-Af Amer) 96.5 ml/min BUN/Creatinine Ratio 21.6 H (10-20) Glucose 85 (70-99(Fasting)) mg/dl Calcium 7.6 L (8.5-10.1) mg/dl Total Bilirubin 0.4 (0.2-1.0) mg/dl AST 56 H (13-39) U/L ALT 26 (7-52) U/L Alkaline Phosphatase 57 (34-104) U/L C-Reactive Protein (0-0.5) mg/dl Total Protein 5.8 L (6.0-8.3) gm/dl Albumin 2.4 L (3.4-5.0) gm/dl Globulin 3.4 (2.5-4.0) gm/dl Albumin/Globulin Ratio 0.7 L (0.9-2) Lipase 29 (11-82) U/L Procalcitonin (0-0.5) ng/ml Urine Color Dark Yellow Urine Appearance Cloudy A (Clear) Urine pH 5.0 (4.5-7.5) Ur Specific [place] 1.035 H (1.000-1.030) Urine Protein 4+ H (Negative) Urine Glucose (UA) Negative (Negative) Urine Ketones Trace H (Negative) Urine Blood 3+ H (Negative) Urine Nitrite Negative (Negative) Urine Bilirubin 1+ H (Negative) Urine Urobilinogen Negative (Negative) Ur Leukocyte Esterase Trace H (Negative) Urine WBC (Auto) >30 H (0-5) /hpf Urine RBC (Auto) 10-30 H (0-4) /hpf U Hyaline Cast (Auto) 10-30 H (0-5) /lpf U Epithel Cells (Auto) >30 H (0-5) /lpf Urine Bacteria (Auto) Negative (Negative) Granular Casts 10-20 H (0) /lpf SARS-CoV-2, RNA, NAAT (NEGATIVE) 07/26/22 07/26/22 07/26/22 Range/Units 10:47 10:47 12:10 WBC (4.8-10.8) K/ul RBC (3.93-5.22) M/uL Hgb (12.0-16.0) g/dl Hct (34.1-44.9) % MCV (80.0-100.0) fL MCH (25.0-34.0) pg MCHC (32.0-36.0) g/dL RDW Std Deviation (36.4-46.3) fL RDW Coeff of Bisi (11.5-14.5) % Plt Count (130-400) K/uL MPV (9.4-12.3) fL Immature Gran % (Auto) % Neut % (Auto) % Lymph % (Auto) % Summers % (Auto) % Eos % (Auto) % Baso % (Auto) % Neut # (Auto) (1.4-6.5) K/uL Lymph # (Auto) (1.2-3.4) K/uL Summers # (Auto) (0.24-0.82) K/uL Eos # (Auto) (0-0.50) K/uL Baso # (Auto) (0-0.2) K/uL Immature Gran # (Auto) (0.00-0.02) K/uL Sodium (136-145) mmol/L Potassium (3.5-5.1) mmol/L Chloride (98-107) mmol/L Carbon Dioxide (21-32) mmol/L Anion Gap (3-11) BUN (6-23) mg/dl Creatinine (0.6-1.2) mg/dl Est Cr Clr Drug Dosing ml/min Est GFR ( Amer) ml/min Est GFR (Non-Af Amer) ml/min BUN/Creatinine Ratio (10-20) Glucose (70-99(Fasting)) mg/dl Calcium (8.5-10.1) mg/dl Total Bilirubin (0.2-1.0) mg/dl AST (13-39) U/L ALT (7-52) U/L Alkaline Phosphatase (34-104) U/L C-Reactive Protein < 0.50 (0-0.5) mg/dl Total Protein (6.0-8.3) gm/dl Albumin (3.4-5.0) gm/dl Globulin (2.5-4.0) gm/dl Albumin/Globulin Ratio (0.9-2) Lipase (11-82) U/L Procalcitonin 0.41 (0-0.5) ng/ml Urine Color Urine Appearance (Clear) Urine pH (4.5-7.5) Ur Specific [place] (1.000-1.030) Urine Protein (Negative) Urine Glucose (UA) (Negative) Urine Ketones (Negative) Urine Blood (Negative) Urine Nitrite (Negative) Urine Bilirubin (Negative) Urine Urobilinogen (Negative) Ur Leukocyte Esterase (Negative) Urine WBC (Auto) (0-5) /hpf Urine RBC (Auto) (0-4) /hpf U Hyaline Cast (Auto) (0-5) /lpf U Epithel Cells (Auto) (0-5) /lpf Urine Bacteria (Auto) (Negative) Granular Casts (0) /lpf SARS-CoV-2, RNA, NAAT NEGATIVE (NEGATIVE) Imaging Data Radiologist's Impression: Abdomen/Pelvis CT 07/26/22 12:[address] WITH IV CONTRAST CT DOSE: HISTORY: recent flight, upper abd pain x 3 days, upper tend TECHNIQUE: Multiaxial CT images of the abdomen and pelvis were performed f ollowing the use of intravenous contrast. A dose lowering technique was utilized adhering to the principles of ALARA. COMPARISON STUDY: Abdomen and pelvis CT 09/03/2019. FINDINGS: Please refer to the same day chest CTA for further evaluation of the lung bases. There are small bilateral pleural effusions. The heart is mildly enlarged. No pneumoperitoneum. No pneumatosis. No fractures within the visualized osseous structures. Mild bladder wall thickening. The uterus and left ovary are unremarkable. There is a small right ovarian cyst with trace right adnexal fluid. Mild motion artifact. No bowel wall thickening or obstruction. Normal appendix. The liver contains a punctate calcification within the left hepatic lobe. The gallbladder, spleen, adrenal glands, and pancreas unremarkable. A 4 mm hypodense lesion within the right kidney is technically too small to characterize but favors a cyst. This was likely present on the prior examination. Although difficult to assess due to the motion artifact there may be mild enlargement and subtle heterogeneous enhancement within the left kidney. This raises the possibility of a left-sided pyelonephritis. Therefore, recommend correlation with urinalysis. No hydronephrosis. The main portal vein is patent. Normal caliber abdominal aorta. No retroperitoneal lymphadenopathy. IMPRESSION: 1. Although difficult to assess due to the motion artifact, there may be mild enlargement and subtle heterogeneous enhancement within the left kidney. Recomm end correlation with urinalysis to assess for a left-sided pyelonephritis. 2. Mild bladder wall thickening likely representing a cystitis. 3. No bowel wall thickening or obstruction. 4. Normal appendix. 5. Small bilateral pleural effusions. ACT 112: Negative or not required by law. Electronically signed by: Louis Aponte M.D. 07/26/2022 1:50 PM Chest CTA 07/26/22 12:20 CT ANGIOGRAPHY OF THE CHEST, PULMONARY EMBOLUS PROTOCOL CLINICAL HISTORY: hx PE, recent 16 hour flight, b/l leg pain, tachy COMPARISON STUDY: Chest CT October 02, 2021. Chest radiograph November 08, 2021. TECHNIQUE: Following IV administration of 120 mL of Optiray, helical axial images of the chest were obtained utilizing the pulmonary embolus protocol. Maximal intensity projections and sagittal and coronal reformats were viewed on an independent 3D workstation. IV contrast was administered without complication. Automated exposure control was utilized for the study. A dose lowering technique was utilized adhering to the principles of ALARA. CT DOSE: 469.27 mGy.cm FINDINGS: No pulmonary emboli are identified although the segmental and subsegm ental pulmonary cyst is suboptimally assessed due to respiratory motion. There is mild to moderate cardiomegaly with a small pericardial effusion. There is no thoracic aortic dissection. No enlarged axillary, mediastinal or hilar lymph nodes are present. A partially calcified 4.2 x 4.1 cm left lobe thyroid nodule is noted. This is similar in size to CT of October 15, 2017. This was previously biopsied. There is no pneumothorax. There are small bilateral pleural effusions. Subpleural opacities reflect atelectasis. There is no consolidation to suggest pneumonia. Lungs are suboptimally assessed due to respiratory motion. No acute fracture or suspicious lesion within the bony thorax is present. Abdomen and pelvis CT will be reported separately. IMPRESSION: 1. No pulmonary emboli identified although segmental and subsegmental pulmonary arteries suboptimally assessed due to respiratory motion. 2. Cardiomegaly with a small pericardial effusion. 3. Small bilateral pleural effusions. 4. No consolidation to suggest pneumonia. ACT 112: Negative or not required by law. Electronically signed by: Zack Gross M.D. 07/26/2022 1:45 PM Venous Doppler Study 07/26/22 12:20 ULTRASOUND BILATERAL LOWER EXTREMITY VENOUS CLINICAL HISTORY: Leg pain. Recent travel. COMPARISON STUDY: No priors. TECHNIQUE: Real-time, grayscale, and color Doppler sonography of the deep veins of the right and left lower extremity was performed from the inguinal crease to the calf. Compression and augmentation were utilized. FINDINGS: There is no sonographic evidence of deep venous thrombosis identified in the right or left lower extremity. The common femoral, superficial femoral, and popliteal veins are patent and normally compressible bilaterally. The greater saphenous vein and the profunda femoris vein at the junction with the common femoral vein are clear in both legs. The visualized calf veins are patent bilaterally. IMPRESSION: There is no sonographic evidence of deep venous thrombosis identified in the right or left lower extremity. ACT 112: Negative or not required by law. Electronically signed by: Thomas Pretty M.D. 07/26/2022 2:56 PM ECG Data Attestation: I personally reviewed and interpreted this ECG as follows: (Sinus rhythm rate of 95. Intervals within normal limits. Left axis deviation. No acute ST elevation. Nonspecific T wave in lead III which is unchanged from prior ECG 10/02/2021) MDM Narrative This is a 47-year-old immunocompromised female with a complex medical history as described above who presents with 3 days of subjective fever, decreased food and fluid intake, abdominal pain, and bilateral leg pain. This is in context of a 16-hour flight from [place] 4 days ago. On initial exam, patient is slightly ill-appearing, heart rate 101. Oral mucous membranes are dry. She has diffuse upper abdominal tenderness and diffuse lower extremity tenderness. She is normotensive and afebrile here in the emergency department. Nontoxic-appearing. Given her complicated history, the differential was quite broad. EKG was obtained from triage demonstrating sinus tachycardia with no significant changes. Patient was placed on the director of cardiac cath lab demonstrating sinus tachycardia. She was given IV fluids. Labs Persistent leukopenia of 2.58, hemoglobin 9.5 which is somewhat lower from her baseline although she does have a history of chronic anemia. She is not reji tropenic. Hypocalcemic and hyperchloremic, worse than her baseline. Kidney function is normal. Protein remains low, her baseline. Urine is concentrated at 1.035, persistent protein likely secondary to nephrotic syndrome, 3+ blood, trace leukocyte esterase, greater than 30 white blood cells with casts. Certainly a component of contamination however cannot rule out UTI as etiology of symptoms. Culture pending. Troponin is negative. Imaging Bilateral Dopplers of the lower extremities were obtained due to history of PE, bilateral leg pain, and 16-hour flight prior to onset of symptoms, and these are negative for DVT. CT chest for PE was obtained for the above associated risks, and this de monstrates bilateral small pleural effusions and a small pericardial effusion, no PE. Due to reported abdominal pain and tenderness, CT abdomen pelvis was also obtained and this demonstrates evidence of cystitis and likely progression to left kidney, likely early pyelonephritis. Patient was given 2 g Rocephin. Course Patient's tachycardia improved after fluids into the 90s and she remained hemo dynamically stable Case was reviewed with ED attending Dr. Wheat who agreed the patient would benefit from inpatient management given her complex history, immunocompromise state, and evidence of possible pyelonephritis. I reviewed all of her imaging and lab findings with the use of a video transl ator and recommended admission, and she was agreeable with this plan. I spoke with Dr. Ochoa (hospitalist, [facility]) who agreed to evaluate the patient at bedside for further management. Impression & Plan Pyelonephritis, Hyperchloremia, Hypocalcemia, Bilateral pleural effusion, Pericardial effusion Discharge Plan Visit Data Chief Complaint: Fever Stated Complaint: FEVER, WEAKNESS ED Provider: Alex Wheat ED Midlevel Provider: Peter Damon Discharge Problem: Pyelonephritis, Hyperchloremia, Hypocalcemia, Bilateral pleural effusion, Pericardial effusion Patient Disposition: Admitted As Inpatient Discharge Instructions Interventions: ED Discharge Assessment Last Done: 07/26/22 18:34
[2022-07-26] MEDS ORDERED: OPTIRAY 300 500mL IV ONE (13:13)
--- NOTE | 2022-07-26 13:46 | CT Scan Report ---
CT ANGIOGRAPHY OF THE CHEST, PULMONARY EMBOLUS PROTOCOL CLINICAL HISTORY: hx PE, recent 16 hour flight, b/l leg pain, tachy COMPARISON STUDY: Chest CT October 02, 2021. Chest radiograph November 08, 2021. TECHNIQUE: Following IV administration of 120 mL of Optiray, helical axial images of the chest were o btained utilizing the pulmonary embolus protocol. Maximal intensity projections and sagittal and cor onal reformats were viewed on an independent 3D workstation. IV contrast was administered without co mplication. Automated exposure control was utilized for the study. A dose lowering technique was ut ilized adhering to the principles of ALARA. CT DOSE: 469.27 mGy.cm FINDINGS: No pulmonary emboli are identified although the segmental and subsegmental pulmonary cyst is suboptimally assessed due to respiratory motion. There is mild to moderate cardiomegaly with a sma ll pericardial effusion. There is no thoracic aortic dissection. No enlarged axillary, mediastinal or hilar lymph nodes are present. A partially calcified 4.2 x 4.1 cm left lobe thyroid nodule is noted. This is similar in size to CT of October 15, 2017. This was previously biopsied. There is no pneumo thorax. There are small bilateral pleural effusions. Subpleural opacities reflect atelectasis. There is no consolidation to suggest pneumonia. Lungs are suboptimally assessed due to respiratory motion. No acute fracture or suspicious lesion within the bony thorax is present. Abdomen and pelvis CT will be reported separately. IMPRESSION: 1. No pulmonary emboli identified although segmental and subsegmental pulmonary arteries suboptimally assessed due to respiratory motion. 2. Cardiomegaly with a small pericardial effusion. 3. Small bilateral pleural effusions. 4. No consolidation to suggest pneumonia. ACT 112: Negative or not required by law. Electronically signed by: Zack Gross M.D. 07/26/2022 1:45 PM
--- NOTE | 2022-07-26 13:52 | CT Scan Report ---
ABDOMEN AND PELVIS CT WITH IV CONTRAST CT DOSE: HISTORY: recent flight, upper abd pain x 3 days, upper tend TECHNIQUE: Multiaxial CT images of the abdomen and pelvis were performed following the use of intrave nous contrast. A dose lowering technique was utilized adhering to the principles of ALARA. COMPARISON STUDY: Abdomen and pelvis CT 09/03/2019. FINDINGS: Please refer to the same day chest CTA for further evaluation of the lung bases. There are small bilateral pleural effusions. The heart is mildly enlarged. No pneumoperitoneum. No pneumatosis. No fractures within the visualized osseous structures. Mild bladder wall thickening. The uterus and left ovary are unremarkable. There is a small right ovarian cyst with trace right adnexal fluid. Mild motion artifact. No bowel wall thickening or obstruction. Normal appendix. The liver contains a punc plascencia calcification within the left hepatic lobe. The gallbladder, spleen, adrenal glands, and pancrea s unremarkable. A 4 mm hypodense lesion within the right kidney is technically too small to character ize but favors a cyst. This was likely present on the prior examination. Although difficult to assess due to the motion artifact there may be mild enlargement and subtle heterogeneous enhancement within the left kidney. This raises the possibility of a left-sided pyelonephritis. Therefore, recommend co rrelation with urinalysis. No hydronephrosis. The main portal vein is patent. Normal caliber abdomina l aorta. No retroperitoneal lymphadenopathy. IMPRESSION: 1. Although difficult to assess due to the motion artifact, there may be mild enlargement and subtle heterogeneous enhancement within the left kidney. Recommend correlation with urinalysis to assess for a left-sided pyelonephritis. 2. Mild bladder wall thickening likely representing a cystitis. 3. No bowel wall thickening or obstruction. 4. Normal appendix. 5. Small bilateral pleural effusions. ACT 112: Negative or not required by law. Electronically signed by: Louis Aponte M.D. 07/26/2022 1:50 PM
[2022-07-26] MEDS ORDERED: cefTRIAXone SODIUM 2,000 MG/70 ML BAG IV STA (14:06)
--- NOTE | 2022-07-26 14:57 | Ultrasound Report ---
ULTRASOUND BILATERAL LOWER EXTREMITY VENOUS CLINICAL HISTORY: Leg pain. Recent travel. COMPARISON STUDY: No priors. TECHNIQUE: Real-time, grayscale, and color Doppler sonography of the deep veins of the right and left lower extremity was performed from the inguinal crease to the calf. Compression and augmentation wer e utilized. FINDINGS: There is no sonographic evidence of deep venous thrombosis identified in the right or left lower extremity. The common femoral, superficial femoral, and popliteal veins are patent and normally compressible bilaterally. The greater saphenous vein and the profunda femoris vein at the junction w ith the common femoral vein are clear in both legs. The visualized calf veins are patent bilaterally. IMPRESSION: There is no sonographic evidence of deep venous thrombosis identified in the right or lef t lower extremity. ACT 112: Negative or not required by law. Electronically signed by: Thomas Pretty M.D. 07/26/2022 2:56 PM
[2022-07-26] MEDS ORDERED: CEFEPIME 2,000 MG in SYRINGE 0 ML IV STA (15:54)
--- NOTE | 2022-07-26 16:07 | History & Physical Report ---
Date of Service July 26, 2022 Assessment & Plan (1) Pyelonephritis: Plan: Presents with fevers, lower back pain- UA appears contaminated, but with bladder thickening and suspected left sided pyelonephritis. She is immunosupressed with Cellcept, Plaquenil, and Prednisone. - Blood cultures pending - Urine culture pending - Leukopenic but at baseline - Cefepime 2GM IV q12 - await above cultures - follow (2) Hypertension: Plan: Continue ARB as long as renal indcies and hemodynamics remain stable (3) Systemic lupus erythematosus: Plan: Follows with Rheumatology - Hold Cellcept with active infection - Hold Plaquenil with active infection - Continue Prednisone- stress dose if needed (4) Pulmonary embolism associated with COVID-19: Plan: HX of and resolved- Xarelto stopped in March - CTA of chest negative for PE today - Lovenox for VTE prophy (5) Thyroid enlargement: Plan: History of with tracheal deviation- biopsied in past negative - follows with [facility] (6) Chronic anemia: Plan: Normocytic at this time - was previosly on iron supplementation and b12 - not currently listed on her active medicaitions - follow non acute History of Present Illness Primary Care Provider: Nicolette Simms MD 46 YOF with past medical history of: LUPUS, lupus nephritis, HTN, enlarged thyroid with biopsy normal 2016, chronic anemia, B12 and Vitamin D deficiency, PE (2020 on Xarelto), COVID 19 (2020). Patient comes to the [facility] to for complaints of 3-4 days history of fevers at home associated with lower back pain, nausea without vomiting. Fevers have been mostly at night but occur through out the day. She endorses decrease in food and water intake over this time. She has not noted any change to her bowel or bladder function. In the [facility] the patient had routine lab work completed to include UA and CT scan of abdomen and pelvis completed, CT chest. She was given a dose of Rocephin by [facility]. CT was consistent with left sided pyelonephritis, and bladder wall thickening. Hospitalist was consulted for admission for pyelonephritis/UTI with immunocompromised patient. Patient was evaluated using the manager community development service, as her primary language is Albanian. She was given a dose of Cefepime. Patient will be admitted to medical surgical floor, continue with IVF overnight, Cefepime 2GM IV q12 hours. She follows with Rheumatology for her Lupus she remains on Plaquenil, Cellcept, and Prednisone and monthly Benlysta infusion. Will hold her Plaquenil/CellCept and continue her Prednisone. For her PE she has completed her Xarelto course and this was discontinued in March 2022. COVID: NEGATIVE Allergies Allergy/AdvReac Type Severity Reaction Status Date / Time No Known Allergies Allergy Verified 07/26/22 19:28 Home Medications Medication Instructions Recorded Confirmed Type prednisone 10 mg tablet 5 mg PO DAILY #180 tabs 10/06/19 07/26/22 History hydroxychloroquine 200 mg tablet 200 mg PO BID 04/10/20 07/26/22 History cholecalciferol (vitamin D3) 50 50 mcg PO DAILY #90 caps 01/15/21 07/26/22 Rx mcg (2,000 unit) capsule atorvastatin 10 mg tablet 10 mg PO DAILY #90 tabs 10/11/21 07/26/22 Rx mycophenolate mofetil 500 mg tablet 1,000 mg PO BID #360 tabs 10/22/21 07/26/22 Rx ondansetron HCl 4 mg tablet 4 mg PO Q8H PRN nausea and 11/22/21 07/26/22 Rx (Zofran) vomiting #20 tabs losartan 100 mg tablet 100 mg PO DAILY #90 tabs 01/09/22 07/26/22 Rx Past Med/Surg History Medical History Fever Iron deficiency anemia Lupus Nephrotic syndrome Pulmonary embolism Rash Urinary tract infection Surgical History H/O tooth extraction Hx of section X4 Family History Father Diabetes Other Family history unknown Denies family history of Ovarian cancer Prostate cancer Breast cancer Colorectal cancer Social History Smoking Status: Never smoker Second Hand Exposure: No; Hx Alcohol Use: No Hx Substance Use: No Preferred Language: Albanian Communication Ability: Effective Communication Tools: IPad Visual Impairment: No Limitations Hearing Ability: Normal Veneer Stacker Required: Yes Beliefs That Will Affect Care: None marital status: Current Living Situation: Spouse and Family current occupational status: unemployed How many Children do You have: 5 How many Children do You have Comment: 3 girls 2 boys Feels Safe at Home: Yes Childhood Exposure to Second-Hand Smoke: No during the past year weight has: decreased > 10 lbs Dental Care, Regularly: No Physical Activity Frequency: 1-2 Times per Week Seatbelt Use: always Sunscreen Use: No Review of Systems Review of Systems: REVIEW OF SYSTEMS: Constitutional: (+) fever, sweats or chills Eyes: No diplopia, no worsening or blurred vision ENT: normal hearing, no trouble swallowing Respiratory: No cough, sputum, dyspnea at rest or on exertion Cardiovascular: No chest pain, tightness or palpitations Abdomen: (+) pain, nausea, NO vomiting, diarrhea or constipation Musculoskeletal: No joint pain, calf pain, swelling Neurologic: No weakness, numbness/tingling, or balance problems : (+) lower back pain Psychiatric: No anxiety or depression Skin: No rash or itch Physical Exam Physical Exam: PHYSICAL EXAM: General: awake, alert, no apparent distress Head: Normocephalic, atraumatic ENT: PERRLA, EOMI, no pharyngeal exudate, mucous membranes dry Neuro: AAO x 3, speech clear and appropriate, strength intact bilaterally 5/5, sensation intact and equal all extremities and dermatomes, no pronator drift Chest: equal rise and fall of the chest, no accessory muscle use, no heaves or thrills, Clear to auscultation, on room air, Cardiac: Regular rate and rhythm, telemetry reviewed-NSR, skin warm dry, cap refill <3 seconds, peripheral pulses +2 no JVD, no murmur, no edema GI: NABS x 4 quadrants, soft, suprapubic tenderness with palpation, no rebound, guarding or tenderness : Spontaneously voiding, no pain, mild lower CVA tenderness Extremities: Normal inspection, no peripheral edema or erythema, calfs nontender to palpation Psych: Normal mood and affect Skin: no rash or erythema Results & Data Results & Data ([facility]) Vital Signs (Past 12 Hours) Vital Signs Temp Pulse Resp BP Pulse Ox O2 Del Method 07/26/22 12:20 Room Air 07/26/22 10:29 36.2 C L 101 H 20 132/87 98 Room Air Laboratory Results Abnormal lab results 07/26/22 07/26/22 07/26/22 Range/Units 10:47 10:47 10:47 WBC 2.58 L (4.8-10.8) K/ul RBC 3.31 L (3.93-5.22) M/uL Hgb 9.5 L (12.0-16.0) g/dl Hct 29.8 L (34.1-44.9) % MCHC 31.9 L (32.0-36.0) g/dL RDW Std Deviation 51.3 H (36.4-46.3) fL RDW Coeff of Bisi 15.7 H (11.5-14.5) % Lymph # (Auto) 0.62 L (1.2-3.4) K/uL Moore # (Auto) 0.19 L (0.24-0.82) K/uL Immature Gran # (Auto) 0.03 H (0.00-0.02) K/uL Chloride 112 H (98-107) mmol/L BUN/Creatinine Ratio 21.6 H (10-20) Calcium 7.6 L (8.5-10.1) mg/dl AST 56 H (13-39) U/L Total Protein 5.8 L (6.0-8.3) gm/dl Albumin 2.4 L (3.4-5.0) gm/dl Albumin/Globulin Ratio 0.7 L (0.9-2) Urine Appearance Cloudy A (Clear) Ur Specific [place] 1.035 H (1.000-1.030) Urine Protein 4+ H (Negative) Urine Ketones Trace H (Negative) Urine Blood 3+ H (Negative) Urine Bilirubin 1+ H (Negative) Ur Leukocyte Esterase Trace H (Negative) Urine WBC (Auto) >30 H (0-5) /hpf Urine RBC (Auto) 10-30 H (0-4) /hpf U Hyaline Cast (Auto) 10-30 H (0-5) /lpf U Epithel Cells (Auto) >30 H (0-5) /lpf Granular Casts 10-20 H (0) /lpf Diagnostic Findings Abdomen/Pelvis CT 07/26/22 12:[address] WITH IV CONTRAST CT DOSE: HISTORY: recent flight, upper abd pain x 3 days, upper tend TECHNIQUE: Multiaxial CT images of the abdomen and pelvis were performed following the use of intravenous contrast. A dose lowering technique was utilized adhering to the principles of ALARA. COMPARISON STUDY: Abdomen and pelvis CT 09/03/2019. FINDINGS: Please refer to the same day chest CTA for further evaluation of the lung bases. There are small bilateral pleural effusions. The heart is mildly enl arged. No pneumoperitoneum. No pneumatosis. No fractures within the visualized osseous structures. Mild bladder wall thickening. The uterus and left ovary are unremarkable. There is a small right ovarian cyst with trace right adnexal fluid. Mild motion artifact. No bowel wall thickening or obstruction. Normal appendix. The liver contains a punctate calcification within the left hepatic lobe. The gallbladder, spleen, adrenal glands, and pancreas unremarkable. A 4 mm hypodense lesion within the right kidney is technically too small to characterize but favors a cyst. This was likely present on the prior examination. Although difficult to assess due to the motion artifact there may be mild enlargement and subtle heterogeneous enhancement within the left kidney. This raises the possibility of a left-sided pyelonephritis. Therefore, recommend correlation with urinalysis. No hydronephrosis. The main portal vein is patent. Normal caliber abdominal aorta. No retroperitoneal lymphadenopathy. IMPRESSION: 1. Although difficult to assess due to the motion artifact, there may be mild enlargement and subtle heterogeneous enhancement within the left kidney. Recommend correlation with urinalysis to assess for a left-sided pyelonephritis. 2. Mild bladder wall thickening likely representing a cystitis. 3. No bowel wall thickening or obstruction. 4. Normal appendix. 5. Small bilateral pleural effusions. ACT 112: Negative or not required by law. Electronically signed by: Louis Aponte M.D. 07/26/2022 1:50 PM Chest CTA 07/26/22 12:20 CT ANGIOGRAPHY OF THE CHEST, PULMONARY EMBOLUS PROTOCOL CLINICAL HISTORY: hx PE, recent 16 hour flight, b/l leg pain, tachy COMPARISON STUDY: Chest CT October 02, 2021. Chest radiograph November 08, 2021. TECHNIQUE: Following IV administration of 120 mL of Optiray, helical axial images of the chest were obtained utilizing the pulmonary embolus protocol. Maximal intensity projections and sagittal and coronal reformats were viewed on an independent 3D workstation. IV contrast was administered without complication. Automated exposure control was utilized for the study. A dose lowering technique was utilized adhering to the principles of ALARA. CT DOSE: 469.27 mGy.cm FINDINGS: No pulmonary emboli are identified although the segmental and subsegmental pulmonary cyst is suboptimally assessed due to respiratory motion. There is mild to moderate cardiomegaly with a small pericardial effusion. There is no thoracic aortic dissection. No enlarged axillary, mediastinal or hilar lymph nodes are present. A partially calcified 4.2 x 4.1 cm left lobe thyroid nodule is noted. This is similar in size to CT of October 15, 2017. This was previously biopsied. There is no pneumothorax. There are small bilateral pleural effusions. Subpleural opacities reflect atelectasis. There is no consolidation to suggest pneumonia. Lungs are suboptimally assessed due to respiratory motion. No acute fracture or suspicious lesion within the bony thorax is present. Abdomen and pelvis CT will be reported separately. IMPRESSION: 1. No pulmonary emboli identified although segmental and subsegmental pulmonary arteries suboptimally assessed due to respiratory motion. 2. Cardiomegaly with a small pericardial effusion. 3. Small bilateral pleural effusions. 4. No consolidation to suggest pneumonia. ACT 112: Negative or not required by law. Electronically signed by: Zack Gross M.D. 07/26/2022 1:45 PM Venous Doppler Study 07/26/22 12:20 ULTRASOUND BILATERAL LOWER EXTREMITY VENOUS CLINICAL HISTORY: Leg pain. Recent travel. COMPARISON STUDY: No priors. TECHNIQUE: Real-time, grayscale, and color Doppler sonography of the deep veins of the right and left lower extremity was performed from the inguinal crease to the calf. Compression and augmentation were utilized. FINDINGS: There is no sonographic evidence of deep venous thrombosis identified in the right or left lower extremity. The common femoral, superficial femoral, and popliteal veins are patent and normally compressible bilaterally. The greater saphenous vein and the profunda femoris vein at the junction with the common femoral vein are clear in both legs. The visualized calf veins are patent bilaterally. IMPRESSION: There is no sonographic evidence of deep venous thrombosis identified in the right or left lower extremity. ACT 112: Negative or not required by law. Electronically signed by: Thomas Pretty M.D. 07/26/2022 2:56 PM Medications Administered Home Medications prednisone 10 mg tablet 10 mg PO DAILY #180 tabs 10/06/19 [History Confirmed 02/15/22] hydroxychloroquine 200 mg tablet 200 mg PO BID 04/10/20 [History Confirmed 02/15/22] cholecalciferol (vitamin D3) 50 mcg (2,000 unit) capsule 50 mcg PO DAILY #90 caps 01/15/21 [Rx Confirmed 02/15/22] rivaroxaban 20 mg tablet (Xarelto) 20 mg PO DAILY #30 tabs 10/04/21 [Rx Confirmed 02/15/22] atorvastatin 10 mg tablet 10 mg PO DAILY #90 tabs 10/11/21 [Rx Confirmed 02/15/22] mycophenolate mofetil 500 mg tablet 1,000 mg PO BID #360 tabs 10/22/21 [Rx Confirmed 02/15/22] ondansetron HCl 4 mg tablet (Zofran) 4 mg PO Q8H PRN nausea and vomiting #20 tabs 11/22/21 [Rx Confirmed 02/15/22] losartan 100 mg tablet 100 mg PO DAILY #90 tabs 01/09/22 [Rx Confirmed 02/15/22] Active Medications Acetaminophen (Acetaminophen 325 Mg Tab) 650 mg PO Q4H PRN PRN Reason: pain/fever Stop: 08/25/22 18:34 Atorvastatin Calcium (Atorvastatin 10 Mg Tab) 10 mg PO DAILY OSMAN Stop: 08/26/22 08:59 Enoxaparin Sodium (Enoxaparin Inj 40 Mg/0.4 Ml Syr) 40 mg SQ QAM OSMAN Stop: 08/26/22 08:59 Sodium Chloride (Nss 1000ml) 1,000 mls @ 999 mls/hr IV .Q1H1M ONE Stop: 07/26/22 12:53 Last Infusion: 07/26/22 15:18 Dose: Infused Cefepime HCl 2,000 mg/ Syringe 20 mls @ 5 mls/min IV NOW STA; Protocol Stop: 07/26/22 15:57 Last Admin: 07/26/22 17:31 Dose: 5 mls/min Lactated Ringer's (Lr) 1,000 mls @ 90 mls/hr IV .Q11H7M OSMAN Stop: 07/27/22 06:00 Last Admin: 07/26/22 17:01 Dose: 90 mls/hr Cefepime HCl 2,000 mg/ Syringe 20 mls @ 5 mls/min IV Q12H OSMAN; Protocol Stop: 08/06/22 03:59 Ioversol (Optiray 300 500ml) 120 ml IV ONCE ONE Stop: 07/26/22 13:14 Last Admin: 07/26/22 13:13 Dose: 120 ml Ondansetron HCl (Ondansetron Inj 2 Mg/Ml 2 Ml Vial) 4 mg IV Q6H PRN PRN Reason: Nausea Stop: 08/25/22 18:34 Prednisone (Prednisone 10 Mg Tablet) 10 mg PO DAILY OSMAN Stop: 08/26/22 08:59 ECG Additional Comments: Normal sinus rhythm Normal ECG When compared with ECG of 02-OCT-2021 14:32, HR has decreased by 16 bpm Otherwise no significant change Code Status & VTE Plan Code Status CODE: FULL VTE: SCDSSofianox Supervising Physician Co-Signing Physician Notes I supervised NGUYEN Cuevas on this admission. I interviewed and examined the patient independently of him. The plan is as written in his note except for any following changes/exceptions: None 47yo F w/ hx of lupus who presents with infection and concern for pyelonephritis. Has been having fevers and whole body aches for several days. Source not entirely clear, but CT a/p does show possible enhancement of the left kidney, so pyelonephritis is most likely culprit at this point in time. If no improvement in 24 - 48 hours, could consider more esoteric infections given the travel to [place] recently. PG Care Time/CCT Total # of Minutes Spent Total Time Spent with Patient: Total time spent is greater than 50% in coordination of care (as documented) at patient's floor/unit and/or counseling patient: Coding Level of Care Code 63119 Initial Inpt Care Lvl 3 Diagnoses Pyelonephritis N12 Hypertension I10 Systemic lupus erythematosus M32.9 Pulmonary embolism associated with COVID-19 U07.1; I26.99 Thyroid enlargement E04.9 Chronic anemia D64.9
[2022-07-26] MEDS: LACTATED RINGER'S 1,000 ML IV SCH (17:01)
[2022-07-26] MEDS ORDERED: ONDANSETRON INJ 2 MG/ML 2 ML VIAL IV PRN (18:35)
[2022-07-26] MEDS: ACETAMINOPHEN 325 MG TAB PO PRN (20:32)
[2022-07-27] MEDS: LACTATED RINGER'S 1,000 ML IV SCH (04:42)
[2022-07-27] MEDS: CEFEPIME 2,000 MG in SYRINGE 0 ML IV SCH ×2 (04:42→15:56)
[2022-07-27] MEDS: ACETAMINOPHEN 325 MG TAB PO PRN (04:56)
[2022-07-27 07:16] LABS: Eosinophils # (auto) 0.04 K/uL (0-0.50); Eosinophils % (auto) 1.8 %; Hematocrit (blood only) 27.5 % (34.1-44.9); Hemoglobin 8.6 g/dl (12.0-16.0); Immature Granulocytes # (auto) 0.02 K/uL (0.00-0.02); Immature Granulocytes % (auto) 0.9 %; Lymphocytes # (auto) 0.46 K/uL (1.2-3.4); Lymphocytes % (auto) 21.1 %; Mean Platelet Volume 9.8 fL (9.4-12.3); Monocytes # (auto) 0.23 K/uL (0.24-0.82); Monocytes % (auto) 10.6 %; Neutrophils # (auto) 1.43 K/uL (1.4-6.5); Neutrophils % (auto) 65.6 %; Platelet Count 123 K/uL (130-400); White Blood Count 2.18 K/ul (4.8-10.8)
[2022-07-27] MEDS: predniSONE 10 MG TABLET PO SCH (07:26)
[2022-07-27] MEDS: ATORVASTATIN 10 MG TAB PO SCH (07:26)
[2022-07-27] MEDS: ENOXAPARIN INJ 40 MG/0.4 ML SYR SQ SCH (07:26)
[2022-07-27 07:36] LABS: Mean Corpuscular Hemoglobin 28.3 pg (25.0-34.0); Mean Corpuscular Hgb Conc 31.3 g/dL (32.0-36.0); Mean Corpuscular Volume 90.5 fL (80.0-100.0); Ovalocytes 1+; RDW Coefficient of Variation 15.8 % (11.5-14.5); RDW Standard Deviation 51.4 fL (36.4-46.3); Red Blood Count 3.04 M/uL (3.93-5.22)
[2022-07-27 07:41] LABS: Calcium 7.2 mg/dl (8.5-10.1); Creatinine Clr Calc Pharmacy 91.3 ml/min; Est GFR (African American) 123.8 ml/min; Est GFR (Non-African American) 106.8 ml/min; Magnesium 1.5 mg/dl (1.7-2.4); Potassium 4.6 mmol/L (3.5-5.1)
--- NOTE | 2022-07-27 14:15 | Nephrology Consultation ---
Date of Consultation July 27, 2022 Assessment & Plan (1) Pyelonephritis: (2) Hypertension: (3) Proteinuria: (4) Systemic lupus erythematosus: Plan SLE with history of membranous nephropathy. Alicia has chronic nephrotic range proteinuria. She does not have evidence of active nephrosis. Volume status is acceptable. BP normotensive. Thankfully, creatinine remains normal. I believe that it would be reasonable to restart losartan as needed. For pyelonephritis, urine cultures are pending and cefepime is being provided. MMF and Plaquenil have been held. This is reasonable. for anemia, iron profile will be updated. CT reviewed. History of Present Illness Reason for Consultation: Lupus nephritis Requesting Physician: Cielo Casas MD Attending Physician: Cielo Casas MD History of Present Illness Alicia Velásquez is a 47 year-old female with a history of class V Lupus nephritis (membranous nephropathy) and chronic anemia with iron deficiency. Nephropathy manifested by nephrotic range proteinuria. Serum creatinine has remained normal. Alicia follows in the nephrology clinic with Dr. Diza. Proteinuria has been chronically nephrotic range with treatment. most recently quantified in August with random PCR 4 g/g. Alicia follows in the [facility] rheumatology clinic. Manifestations of her lupus have included facial rash, arthritis, oral ulcers, and hair loss in the past. She describes initial symptoms in 2016. Condition re cently controlled with hydroxychloroquine, mycophenolate mofetil, Benlysta, and prednisone. Alicia feels that she has been tolerating treatment well. She did develop a PE in October associated with COVID diagnosis. Alicia presented to [facility] yesterday for evaluation of fever, weakness, lower back pain, and nausea without vomiting. Appetite has been decreased. She was admitted with evidence of pyelonephritis. CT scan demonstrating some inflammation involving the left kidney and thickening within the bladder wall. Urine culture pending. UA notable for 4+ protein, 3+ blood. Microscopy >30 WBC, 10-30 RBC, and granular casts. Plaquenil, MMF, and losartan held. Alicia is non-oliguric. She is normotensive. She reported significant improvement today. She does not have notable fluid retenion or edema. Our H/P was completed with the assistance of an printed circuit photographer. I discussed the plan of care with Dr. Casas today. Allergies Allergy/AdvReac Type Severity Reaction Status Date / Time No Known Allergies Allergy Verified 07/26/22 19:28 Home Medications Medication Instructions Recorded Confirmed Type prednisone 10 mg tablet 5 mg PO DAILY #180 tabs 10/06/19 07/26/22 History hydroxychloroquine 200 mg tablet 200 mg PO BID 04/10/20 07/26/22 History cholecalciferol (vitamin D3) 50 50 mcg PO DAILY #90 caps 01/15/21 07/26/22 Rx mcg (2,000 unit) capsule atorvastatin 10 mg tablet 10 mg PO DAILY #90 tabs 10/11/21 07/26/22 Rx mycophenolate mofetil 500 mg tablet 1,000 mg PO BID #360 tabs 10/22/21 07/26/22 Rx ondansetron HCl 4 mg tablet 4 mg PO Q8H PRN nausea and 11/22/21 07/26/22 Rx (Zofran) vomiting #20 tabs losartan 100 mg tablet 100 mg PO DAILY #90 tabs 01/09/22 07/26/22 Rx Patient History Medical History Fever Iron deficiency anemia Lupus Nephrotic syndrome Pulmonary embolism Rash Urinary tract infection Surgical History H/O tooth extraction Hx of section X4 Family History Father Diabetes Other Family history unknown Denies family history of Ovarian cancer Prostate cancer Breast cancer Colorectal cancer Social History Smoking Status: Never smoker Second Hand Exposure: No; Hx Alcohol Use: No Hx Substance Use: No Preferred Language: Georgian Communication Ability: Effective Communication Tools: IPad, Facial Expression and Physical Gestures Visual Impairment: No Limitations Hearing Ability: Normal Liquid Sugar Melter Required: Yes Beliefs That Will Affect Care: None marital status: Current Living Situation: Spouse and Family current occupational status: unemployed How many Children do You have: 5 How many Children do You have Comment: 3 girls 2 boys Other Information That Helps Us Care for You: No Feels Safe at Home: Yes Childhood Exposure to Second-Hand Smoke: No during the past year weight has: decreased > 10 lbs Dental Care, Regularly: No Physical Activity Frequency: 1-2 Times per Week Seatbelt Use: always Sunscreen Use: No Assistive Devices: None Review of Systems Review of Systems: All systems reviewed & are unremarkable except as noted in HPI & below Physical Exam Constitutional: well developed; no acute distress Eyes: no scleral abnormality and no corneal abnormality ENMT: Mouth: no oral mucosal abnormality and oral mucous membranes not dry Neck: normal visual inspection and trachea midline Respiratory: normal respiratory effort Auscultation: lungs clear to auscultation bilaterally Cardiovascular: Rate/Rhythm: regular rate Heart Sounds: normal S1 and normal S2 Extremities: no edema Musculoskeletal: Extremities: no cyanosis and no clubbing Skin: normal turgor; no lesions Neurologic: Motor/Sensory: no tremor and no asterixis Psychiatric: Orientation: alert and oriented x 3 Results & Data ([facility]) Vital Signs (Past 12 Hours) Vital Signs Temp Pulse Pulse Resp BP Pulse Ox O2 Del Method 07/27/22 12:07 36.4 C L 92 H 16 133/88 97 Room Air 07/27/22 07:59 36.5 C 93 H 16 126/83 99 Room Air 07/27/22 03:22 Room Air 07/27/22 03:22 36.8 C 98 H 16 133/86 96 Room Air Laboratory Results Laboratory Results - last 24 hr 07/26/22 07/26/22 07/27/22 10:47 10:47 06:54 WBC 2.18 L RBC 3.04 L Hgb 8.6 L Hct 27.5 L MCV 90.5 MCH 28.3 MCHC 31.3 L RDW Std Deviation 51.4 H RDW Coeff of Bisi 15.8 H Plt Count 123 L MPV 9.8 Immature Gran % (Auto) 0.9 Neut % (Auto) 65.6 Lymph % (Auto) 21.1 [place] % (Auto) 10.6 Eos % (Auto) 1.8 Baso % (Auto) 0.0 Neut # (Auto) 1.43 Lymph # (Auto) 0.46 L [place] # (Auto) 0.23 L Eos # (Auto) 0.04 Baso # (Auto) 0.00 Immature Gran # (Auto) 0.02 Ovalocytes 1+ Sodium Potassium Chloride Carbon Dioxide Anion Gap BUN Creatinine Est Cr Clr Drug Dosing Est GFR ( Amer) Est GFR (Non-Af Amer) BUN/Creatinine Ratio Glucose Calcium Magnesium C-Reactive Protein < 0.50 Procalcitonin 0.41 07/27/22 06:54 WBC RBC Hgb Hct MCV MCH MCHC RDW Std Deviation RDW Coeff of Bisi Plt Count MPV Immature Gran % (Auto) Neut % (Auto) Lymph % (Auto) [place] % (Auto) Eos % (Auto) Baso % (Auto) Neut # (Auto) Lymph # (Auto) [place] # (Auto) Eos # (Auto) Baso # (Auto) Immature Gran # (Auto) Ovalocytes Sodium 140 Potassium 4.6 Chloride 114 H Carbon Dioxide 21 Anion Gap 5 BUN 12 Creatinine 0.63 Est Cr Clr Drug Dosing 91.3 Est GFR ( Amer) 123.8 Est GFR (Non-Af Amer) 106.8 BUN/Creatinine Ratio 19.0 Glucose 66 L Calcium 7.2 L Magnesium 1.5 L C-Reactive Protein Procalcitonin PG Care Time/CCT Total # of Minutes Spent Total Time Spent with Patient: Total time spent is greater than 50% in coordination of care (as documented) at patient's floor/unit and/or counseling patient: Coding Level of Care Code 01516 Inpt Consult Level 4 Diagnoses Pyelonephritis N12 Hypertension I10 Proteinuria R80.9 Systemic lupus erythematosus M32.9
[2022-07-27] MEDS: MAGNESIUM SULFATE / D5W 1 GM/100 ML BAG IV SCH ×2 (16:47→18:59)
--- NOTE | 2022-07-27 16:56 | Hospitalist Progress Note ---
Date of Service July 27, 2022 Assessment & Plan (1) Pyelonephritis: Plan: Presents with fevers at home, lower back and lower abdominal pain- UA appears contaminated, but with bladder thickening and suspected left sided pyelonephritis on CT A/P. She is immunosuppressed with Cellcept, Plaquenil, and Prednisone due to her h/o SLE and lupus nephritis Ur cx mixed nikos, BCx for some reason were cancelled She has chronic leukopenia, is afebrile here, and now clinically all symptoms are resolved Tolerating reg diet - continue Cefepime 2GM IV q12 for now -repeat Ur cx now-clean catch -monitor for worsening of symptoms -continue to hold cellcept and hydroxychloroquine as per my d/w Nephrology while treating infection -if remains clinically well, will plan to dc home tomorrow on Cipro and f/u Ur cx at home (2) Chronic anemia: Plan: Normocytic at this time, hgb 8.6 - was previously on iron supplementation and b12 - not currently listed on her active medications Also with mild thrombocytopenia which could be from infection vs B12 deficiency -check B12, Fe studies in AM and replace as needed (3) Pericardial effusion: Plan: noted to have small pericardial effusion on CTA CHest no abnormal heart sounds, vitals stable check ECHO in the AM (4) Hypomagnesemia: Plan: replace with IV magnesium follow level in AM (5) Hypertension: Plan: Restart ARB for nephrotic syndrome renal function normal (6) Systemic lupus erythematosus: Plan: Followed with [facility] previously (Dr. Porter), but no longer acc epting her insurance and has not had her usual infusion of Benlysta since March [address] Scan Technologist-there is a new Rheum that just joined [place] and her is looking into getting her established with him. Otherwise, I suggested [facility] as [place] lives in [place] - Hold Cellcept with active infection - Hold Plaquenil with active infection - Continue Prednisone- stress dose if needed-none needed at this time (7) Pulmonary embolism associated with COVID-19: Plan: HX of and resolved- Xarelto stopped in March - CTA of chest negative for PE here - Lovenox for VTE prophy (8) Thyroid enlargement: Plan: History of with tracheal deviation- biopsied in past negative - follows with [facility] ENT Plan Dispo-improving, likely dc to home tomorrow Admission and Anticipated Discharge Date Admission Date: July 26, 2022 Subjective Pt feeling much better. No further abd pain, no urinary symptoms, no fevers/chills. No CP, SOB. No back pain. SHe is eating and drinking. Moving bowels regularly. I discussed her care with Nephrology Review of Systems Review of Systems: All systems reviewed & are unremarkable except as noted in HPI & below Physical Exam Constitutional: WD/WN, vitals as above Eyes: + anicteric sclerae Neck: trachea midline, no thyromegaly Respiratory: normal respiratory effort, lungs clear to auscultation Cardiovascular: RRR, no murmur, no edema Chest (Breasts): Chest: normal inspection of chest Gastrointestinal (Abdomen): normal bowel sounds, soft, nontender, no hepatosplenomegaly Musculoskeletal: Extremities: extremities normal to inspection; no cyanosis and no clubbing Skin: no rashes, warm and dry Neurologic: moves all extremities and awake; no focal motor deficits Psychiatric: A+Ox3, euthymic affect Lymphatic: no lymphedema Results & Data Results & Data ([facility]) Vital Signs (Past 12 Hours) Vital Signs Temp Pulse Resp BP BP Pulse Ox O2 Del Method 07/27/22 14:47 36.8 C 93 H 16 131/86 96 Room Air 07/27/22 12:07 36.4 C L 92 H 16 133/88 97 Room Air 07/27/22 07:59 36.5 C 93 H 16 126/83 99 Room Air Laboratory Results 07/27/22 07/27/22 07/26/22 Range/Units 06:54 06:54 10:47 WBC 2.18 L (4.8-10.8) K/ul RBC 3.04 L (3.93-5.22) M/uL Hgb 8.6 L (12.0-16.0) g/dl Hct 27.5 L (34.1-44.9) % MCV 90.5 (80.0-100.0) fL MCH 28.3 (25.0-34.0) pg MCHC 31.3 L (32.0-36.0) g/dL RDW Std Deviation 51.4 H (36.4-46.3) fL RDW Coeff of Bisi 15.8 H (11.5-14.5) % Plt Count 123 L (130-400) K/uL MPV 9.8 (9.4-12.3) fL Immature Gran % (Auto) 0.9 % Neut % (Auto) 65.6 % Lymph % (Auto) 21.1 % Rapides % (Auto) 10.6 % Eos % (Auto) 1.8 % Baso % (Auto) 0.0 % Neut # (Auto) 1.43 (1.4-6.5) K/uL Lymph # (Auto) 0.46 L (1.2-3.4) K/uL Rapides # (Auto) 0.23 L (0.24-0.82) K/uL Eos # (Auto) 0.04 (0-0.50) K/uL Baso # (Auto) 0.00 (0-0.2) K/uL Immature Gran # (Auto) 0.02 (0.00-0.02) K/uL Ovalocytes 1+ Sodium 140 (136-145) mmol/L Potassium 4.6 (3.5-5.1) mmol/L Chloride 114 H (98-107) mmol/L Carbon Dioxide 21 (21-32) mmol/L Anion Gap 5 (3-11) BUN 12 (6-23) mg/dl Creatinine 0.63 (0.6-1.2) mg/dl Est Cr Clr Drug Dosing 91.3 ml/min Est GFR ( Amer) 123.8 ml/min Est GFR (Non-Af Amer) 106.8 ml/min BUN/Creatinine Ratio 19.0 (10-20) Glucose 66 L (70-99(Fasting)) mg/dl Calcium 7.2 L (8.5-10.1) mg/dl Magnesium 1.5 L (1.7-2.4) mg/dl Procalcitonin 0.41 (0-0.5) ng/ml PG Care Time/CCT Total # of Minutes Spent Total Time Spent with Patient: Total time spent is greater than 50% in coordination of care (as documented) at patient's floor/unit and/or counseling patient: Coding Level of Care Code 54377 Subseq Hosp Care Lvl 3 Diagnoses Pyelonephritis N12 Chronic anemia D64.9 Pericardial effusion I31.3 Hypomagnesemia E83.42 Hypertension I10 Systemic lupus erythematosus M32.9 Pulmonary embolism associated with COVID-19 U07.1; I26.99 Thyroid enlargement E04.9
[2022-07-28] MEDS: CEFEPIME 2,000 MG in SYRINGE 0 ML IV SCH (03:35)
[2022-07-28 07:14] LABS: Hematocrit (blood only) 27.3 % (34.1-44.9); Hemoglobin 8.8 g/dl (12.0-16.0); Immature Granulocytes # (auto) 0.01 K/uL (0.00-0.02); Immature Granulocytes % (auto) 0.4 %; Lymphocytes # (auto) 0.51 K/uL (1.2-3.4); Lymphocytes % (auto) 21.5 %; Mean Corpuscular Hemoglobin 28.7 pg (25.0-34.0); Mean Corpuscular Hgb Conc 32.2 g/dL (32.0-36.0); Mean Corpuscular Volume 88.9 fL (80.0-100.0); Mean Platelet Volume 10.1 fL (9.4-12.3); Monocytes # (auto) 0.23 K/uL (0.24-0.82); Monocytes % (auto) 9.7 %; Neutrophils # (auto) 1.62 K/uL (1.4-6.5); Neutrophils % (auto) 68.4 %; Platelet Count 143 K/uL (130-400); RDW Coefficient of Variation 15.5 % (11.5-14.5); RDW Standard Deviation 49.9 fL (36.4-46.3); Red Blood Count 3.07 M/uL (3.93-5.22); White Blood Count 2.37 K/ul (4.8-10.8)
[2022-07-28 07:34] LABS: Iron 66 mcg/dl (35-150); Total Iron Binding Cap Calc 169 mcg/dl (250-450); Transferrin (FE) Percent Satur 39 % (15-50); Unsaturated Iron Binding Cap 103 mcg/dl (155-355)
[2022-07-28 07:48] LABS: BUN Creatinine Ratio 22.5 (10-20); Calcium 7.3 mg/dl (8.5-10.1); Est GFR (African American) 117.6 ml/min; Est GFR (Non-African American) 101.4 ml/min; Magnesium 2.2 mg/dl (1.7-2.4); Potassium 4.5 mmol/L (3.5-5.1)
[2022-07-28 07:53] LABS: Ferritin 673.6 ng/ml (8-388)
[2022-07-28 07:58] LABS: Folate (Folic Acid) 7.32 ng/ml (>5.38)
[2022-07-28] MEDS ORDERED: LOSARTAN POTASSIUM 50 MG TAB PO SCH (09:00)
[2022-07-28] MEDS: ATORVASTATIN 10 MG TAB PO SCH (09:02)
[2022-07-28] MEDS: predniSONE 10 MG TABLET PO SCH (09:02)
[2022-07-28] MEDS: ENOXAPARIN INJ 40 MG/0.4 ML SYR SQ SCH (09:03)
[2022-07-28] MEDS ORDERED: CYANOCOBALAMIN 1000 MCG/ML VIAL IM SCH (09:15)
--- NOTE | 2022-07-28 09:25 | XCELERA ---
[id number]
--- NOTE | 2022-07-28 11:31 | Nephrology Progress Note ---
Date of Service July 28, 2022 Assessment & Plan (1) Pyelonephritis: (2) Hypertension: (3) Proteinuria: (4) Systemic lupus erythematosus: Plan SLE with history of membranous nephropathy. Alicia has chronic nephrotic range proteinuria. She does not have evidence of active nephrotic syndrome. Volume status is acceptable. BP normotensive. Serum creatinine remains normal. Continue losartan 100 mg daily. For pyelonephritis, Alicia remains on cefepime. Conversion to PO therapy such as cipro was discussed with Dr. Casas. Infection is well controlled and it would be reasonably to resume MMF and Plaquenil at discharge. for anemia, iron profile is acceptable. B12 replacement will be provided. I will arrange follow up with Dr. Diaz. Close follow up with rheumatology encouraged to address potential need to adjust therapy. Chronic leukopenia and anemia noted in setting of lupus. Admission and Anticipated Discharge Date Admission Date: July 26, 2022 Subjective No acute events overnight. Mild lower back discomfort but overall feels well today. No fevers or chills. No urinary complaints. Alicia feels like she would like to go home. I discussed the plan of care with Dr. Casas this AM. Visit was completed with assistance of an account engineer. Review of Systems Review of Systems: All systems reviewed & are unremarkable except as noted in HPI & below Physical Exam Constitutional: well developed; no acute distress Eyes: no scleral abnormality and no corneal abnormality ENMT: Mouth: no oral mucosal abnormality and oral mucous membranes not dry Neck: normal visual inspection and trachea midline Respiratory: normal respiratory effort Auscultation: lungs clear to auscultation bilaterally Cardiovascular: Rate/Rhythm: regular rate Heart Sounds: normal S1 and normal S2 Extremities: no edema Musculoskeletal: Extremities: no cyanosis and no clubbing Skin: normal turgor; no lesions Neurologic: Motor/Sensory: no tremor and no asterixis Psychiatric: Orientation: alert and oriented x 3 Results & Data ([facility]) Vital Signs (Past 12 Hours) Vital Signs Temp Pulse Resp BP Pulse Ox O2 Del Method 07/28/22 08:08 36.9 C 101 H 16 126/79 96 Room Air Laboratory Results Laboratory Results - last 24 hr 07/27/22 07/28/22 07/28/22 20:47 06:33 06:33 WBC 2.37 L RBC 3.07 L Hgb 8.8 L Hct 27.3 L MCV 88.9 MCH 28.7 MCHC 32.2 RDW Std Deviation 49.9 H RDW Coeff of Bisi 15.5 H Plt Count 143 MPV 10.1 Immature Gran % (Auto) 0.4 Neut % (Auto) 68.4 Lymph % (Auto) 21.5 Delta % (Auto) 9.7 Eos % (Auto) 0.0 Baso % (Auto) 0.0 Neut # (Auto) 1.62 Lymph # (Auto) 0.51 L Delta # (Auto) 0.23 L Eos # (Auto) 0.00 Baso # (Auto) 0.00 Immature Gran # (Auto) 0.01 Sodium Potassium Chloride Carbon Dioxide Anion Gap BUN Creatinine Est Cr Clr Drug Dosing Est GFR ( Amer) Est GFR (Non-Af Amer) BUN/Creatinine Ratio Glucose POC Glucose 151 H Calcium Magnesium Iron TIBC Unsaturated IBC Transferrin % Sat Ferritin Vitamin B12 188 Folate 7.32 07/28/22 07/28/22 06:33 06:33 WBC RBC Hgb Hct MCV MCH MCHC RDW Std Deviation RDW Coeff of Bisi Plt Count MPV Immature Gran % (Auto) Neut % (Auto) Lymph % (Auto) Delta % (Auto) Eos % (Auto) Baso % (Auto) Neut # (Auto) Lymph # (Auto) Delta # (Auto) Eos # (Auto) Baso # (Auto) Immature Gran # (Auto) Sodium 135 L Potassium 4.5 Chloride 110 H Carbon Dioxide 22 Anion Gap 3 BUN 16 Creatinine 0.71 Est Cr Clr Drug Dosing 81.0 Est GFR ( Amer) 117.6 Est GFR (Non-Af Amer) 101.4 BUN/Creatinine Ratio 22.5 H Glucose 112 H POC Glucose Calcium 7.3 L Magnesium 2.2 Iron 66 TIBC 169 L Unsaturated IBC 103 L Transferrin % Sat 39 Ferritin 673.6 H Vitamin B12 Folate PG Care Time/CCT Total # of Minutes Spent Total Time Spent with Patient: Total time spent is greater than 50% in coordination of care (as documented) at patient's floor/unit and/or counseling patient: Coding Level of Care Code 12699 Subseq Hosp Care Lvl 3 Diagnoses Pyelonephritis N12 Hypertension I10 Proteinuria R80.9 Systemic lupus erythematosus M32.9
--- NOTE | 2022-07-28 14:43 | Discharge Summary ---
Date of Service July 28, 2022 Admission HPI Per Admitting Provider 46 YOF with past medical history of: LUPUS, lupus nephritis, HTN, enlarged thyroid with biopsy normal 2017, chronic anemia, B12 and Vitamin D deficiency, PE (2020 on Xarelto), COVID 19 (2020). Patient comes to the [facility] tody for complaints of 3-4 days history of fevers at home associated with lower back pain, nausea without vomiting. Fevers have been mostly at night but occur through out the day. She endorses decrease in food and water intake over this time. She has not noted any change to her bowel or bladder function. In the EMD the patient had routine lab work completed to include UA and CT scan of abd omen and pelvis completed, CT chest. She was given a dose of Rocephin by EMD. CT was consistent with left sided pyelonephritis, and bladder wall thickening. Hospitalist was consulted for admission for pyelonephritis/UTI with immunocompromised patient. Patient was evaluated using the [facility] consultant service, as her primary language is Portuguese. She was given a dose of Cefepime. Patient will be admitted to medical surgical floor, continue with IVF overnight, Cefepime 2GM IV q12 hours. She follows with Rheumatology for her Lupus she remains on Plaquenil, Cellcept, and Prednisone and monthly Benlysta infusion. Will hold her Plaquenil/CellCept and continue her Prednisone. For her PE she has completed her Xarelto course and this was discontinued in March 2022. COVID: NEGATIVE Principal Diagnosis Acute pyelonephritis, Anemia, Small pericardial effusion Discharge Exam Constitutional WD/WN, vitals as above Eyes + anicteric sclerae Neck trachea midline, no thyromegaly Respiratory normal respiratory effort, lungs clear to auscultation Cardiovascular RRR, no murmur, no edema Chest (Breasts) Chest: normal inspection of chest Gastrointestinal (Abdomen) normal bowel sounds, soft, nontender, no hepatosplenomegaly Musculoskeletal Extremities: extremities normal to inspection; no cyanosis and no clubbing Skin no rashes, warm and dry Neurologic moves all extremities and awake; no focal motor deficits Psychiatric A+Ox3, euthymic affect Lymphatic no lymphedema Discharge Data Allergies Allergy/AdvReac Type Severity Reaction Status Date / Time No Known Allergies Allergy Verified 07/26/22 19:28 Consultations 07/26/22 15:52 ED Decision to Admit Stat 07/27/22 08:26 Consult Nephrology Routine Ordered Studies 07/26/22 12:20 CT Abd and Pelvis [CT abd pelvis IV con only] Stat CT angio chest PE protocol Stat US venous doppler LE BI Stat ECHO Hospital Course (1) Pyelonephritis: Presents with fevers at home, lower back and lower abdominal pain- UA appears contaminated, but with bladder thickening and suspected left sided pyelonephritis on CT A/P. She is immunosuppressed with Cellcept, Plaquenil, and Prednisone due to her h/o SLE and lupus nephritis Ur cx mixed nikos, BCx for some reason were cancelled Repeat Ur cx collected after started on antibiotics had no growth She has chronic leukopenia, is afebrile here, and now clinically all symptoms are resolved Tolerating reg diet, doing very well -received Cefepime 2GM IV q12 and will convert to Cipro 500mg po bid x 8 more days for acute pyelonephritis -held cellcept and hydroxychloroquine as per my d/w Nephrology while treating infection here but ok to restart on discharge now that infection under control (2) Chronic anemia: Normocytic at this time, hgb 8.8 - was previously on iron supplementation and b12 - not currently listed on her active medications Also with mild thrombocytopenia which could be from infection vs B12 deficiency- plts now improved -checked B12 level and quite low at 180 Fe studies normal Folate normal -gave B12 1000 mcg IM x 1 here and continue on po B12 on discharge, f/u outpt with PCP (3) Pericardial effusion: noted to have small pericardial effusion on CTA CHest no abnormal heart sounds, vitals stable ECHO here does show small anterior pericardial effusion without tamponade recommend f/u ECHO in 1 month and f/u with Cardiology as outpt could be 2/2 SLE? (4) Hypomagnesemia: replaced with IV magnesium and resolved (5) Hypertension: continue ARB for nephrotic syndrome renal function normal (6) Systemic lupus erythematosus: Followed with [facility] previously (Dr. Porter), but no longer accepting her insurance and has not had her usual infusion of Benlysta since March 2022 Needs new Drug And Alcohol Counsellor-there is a new Rheum that just joined [place] and her hu sband is looking into getting her established with him. Otherwise, I suggested [facility] as pt lives in [place] - mo to restart Cellcept and Plaquenil which were initially held for her active infection - Continue Prednisone (7) Pulmonary embolism associated with COVID-19: HX of and resolved- Xarelto stopped in March - CTA of chest negative for PE here - Lovenox for VTE prophy given (8) Thyroid enlargement: History of with tracheal deviation- biopsied in past negative - [facility] Plan Dispo-doing very well, stable for dc to home Total Time Total Time Spent Total Time Spent (In Minutes): 45 min Discharge Plan Discharge Items Patient Disposition: Home - Self-Care Reason For Visit: PYELONEPHRITIS IMMUNOCOMPROMISED Discharge Diagnosis: Acute pyelonephritis, B12 deficiency, Anemia, Pericardial effusion Condition on Discharge: Good Activity: Resume your previous activity Non-emergency contact: Primary Care Provider and Certified Legal Secretary Specialist Call non-emergency contact if: you have any medication questions, your symptoms worsen, your pain is not controlled, you have a fever and your temperature is above 101 Follow-up/Referrals: Nicolette Simms MD [Primary Care Provider] - (Follow up within 1-2 weeks) Elida Diaz MD [Physician] - (Please follow up within 2 weeks) Diet: Regular Addtl Attending Provider Instructions: Please finish out the course of antibiotics for your kidney infection with Cipro for 8 more days. For your anemia, you were found to have vitamin B12 deficiency and were given an injection of B12 in the hospital. Please continue on oral B12 you can but over the counter and have your PCP check your B12 levels in a month. You might require more shots of B12 in the future. You also may need to have your dose of CellCept reduced-please discuss this with Dr. Diaz. You should ask your PCP to assist you with getting in to see the new Drug And Alcohol Counsellor at [facility]. You also have a small collection of fluid in the front of the heart-this is called a pericardial effusion. It may be related to your lupus, but is not causing you any problems right now. Please have a repeat ECHO in 1 month and you r PCP may want to refer you to see a Supervisor [employer] as well. Follow up with your PCP within 1-2 weeks. Pending Studies at Discharge: No Stand-Alone Forms: My [facility] Tremor Video Medications and DC Order Prescriptions: New cyanocobalamin (vitamin B-12) 1,000 mcg capsule 1,000 mcg PO DAILY Qty: 30 0RF Rx Instructions: Over the counter ciprofloxacin HCl [Cipro] 500 mg tablet 500 mg PO BID Qty: 16 0RF Continued cholecalciferol (vitamin D3) 50 mcg (2,000 unit) capsule 50 mcg PO DAILY Qty: 90 1RF atorvastatin 10 mg tablet 10 mg PO DAILY Qty: 90 3RF losartan 100 mg tablet 100 mg PO DAILY Qty: 90 3RF prednisone 10 mg tablet 5 mg PO DAILY Qty: 180 mycophenolate mofetil 500 mg tablet 1,000 mg PO BID Qty: 360 3RF ondansetron HCl [Zofran] 4 mg tablet 4 mg PO Q8H PRN (Reason: nausea and vomiting) Qty: 20 0RF hydroxychloroquine 200 mg tablet 200 mg PO BID Discharge Orders: Discharge Order (Routine); Ordered 07/28/22 Ordered By: Cielo Casas Admission Data Admit Date/Time: 07/26/22 16:08 Attending Provider: Cielo Casas Admit Provider: Don Cardona Primary Care Provider: Nicolette Simms V. Other Providers: Don Cardona ; Rohan Cortes Coding Level of Care Code D/C DAY MANAGEMENT >30 MINS Diagnoses Pyelonephritis N12 Chronic anemia D64.9 Pericardial effusion I31.3 Hypomagnesemia E83.42 Hypertension I10 Systemic lupus erythematosus M32.9 Pulmonary embolism associated with COVID-19 U07.1; I26.99 Thyroid enlargement E04.9
== END 2022-07-28 15:35 | disposition home or self-care (01) | DRG 690 ==
LOC: ED 10:19 → EDINP 16:08 → SUATTDRO 16:08 → 2N 18:34